=== PATIENT | female | born 1935 | race Caucasian/White ===

== ENCOUNTER 2020-06-14 16:05 | Inpatient (IN) ==
--- NOTE | 2020-06-14 17:05 | Emergency Department Note ---
Impression & Plan Acute pancreatitis, HTN (hypertension), Myalgia, Acute hyponatremia ED Provider Note NAME: SCOTT ONEAL AGE: 85 SEX: F : 1935 ARRIVES VIA: Walk-In INFORMANT: Patient, ED PROVIDER(S): Marvin Evangelista DO CHIEF COMPLAINT: Low sodium HPI: Patient is an 85-year-old female who presents the ER referred in by PCP for low sodium. She had blood work over a week ago was found to be hyponatremic. Her PCP called her today told her to go the ER because of this blood work. She presented there as she was having diffuse myalgias and arthralgias which have been present for the past 4 weeks. Admits to increased urinary frequency. Denies any headache, change in vision chest pain shortness of breath nausea vomiting or diarrhea. No other exacerbating or remitting factors. ROS: See above HPI for pertinent positives & negatives. A total of 10 systems reviewed and were otherwise negative. PAST MEDICAL HISTORY:See Below PAST SURGICAL HISTORY:See Below FAMILY HISTORY:See Below SOCIAL HISTORY:See Below HOME MEDICATIONS:See Below ALLERGIES:See Below VITALS:See Below PHYSICAL EXAMINATION: GENERAL: Sitting up in bed, alert, well appearing, well nourished, no distress, non-toxic EYE EXAM: normal conjunctiva. PERRL and EOM's grossly intact. OROPHARYNX: no exudate, no erythema, lips, buccal mucosa, and tongue normal and mucous membranes are moist NECK: supple, no nuchal rigidity, no adenopathy, non-tender LUNGS: Clear to auscultation. Normal chest wall mechanics HEART: no murmurs, S1 normal and S2 normal ABDOMEN: abdomen soft, non-tender, normo-active bowel sounds, no masses, no rebound or guarding. BACK: Back is symmetrical on inspection and there is no deformity, no midline tenderness, no CVA tenderness. SKIN: no rashes and no bruising UPPER EXTREMITIES: upper extremities are grossly normal. LOWER EXTREMITIES: No pitting edema. NEURO EXAM: Normal sensorium, cranial nerves II-XII grossly intact, normal speech, no gross weakness of arms, no gross weakness of legs. MEDICAL DECISION MAKING: Patient is an 85-year-old female referred in by her PCP for hyponatremia. IV was established blood work was obtained. She notes that she has not been eating or drinking much. She does have diffuse myalgias and arthralgias associated with weakness. Labs show mild leukocytosis of 11,000. No significant anemia. BMP with mild hyponatremia 129 and slightly low chloride at 95. Do favor that likely secondary to dehydration. She has not been eating or drinking much. T bili and LFTs were unremarkable. Lipase was elevated at nearly 800. UA was clean. CT abdomen pelvis shows likely pancreatitis. She was given IV fluids and IV morphine. She was updated at bedside. Blood pressures were significantly elevated to 220. Favor likely secondary to the pain and she is due for her medications coming up which included hydralazine and carvedilol. She denies any chest pain or shortness of breath. EKG unremarkable. She was given these medications orally as well as IV morphine. She was updated at bedside. Pressures trended down. Discussed with the hospitalist for further evaluation. Triage Nursing notes reviewed. Prior medical records reviewed Vital Signs: reviewed and remarkable for HTN Differential diagnosis: Infection, dehydration, metabolic abnormality, hypo/hyperglycemia, electrolyte disturbance, anemia, hypoxia, cardiac sources, intracerebral event, toxicologic, neurologic, as well as other pathologies. ER treatment provided: See below Diagnostics interpreted by me: ECG: Sinus rhythm rate of 56 Normal axis Poor baseline in the inferior leads Normal QTC T WI in V1 and V2 Cardiac Monitoring: An order was placed for continuous cardiac monitoring. The monitor shows a rate of 60 with sinus rhythm. Laboratory studies: As stated above and show below. Imaging studies: CT abdomen pelvis shows pancreatitis Consultation(s): Discussed with Dr. Patricio Chau for further evaluation ED COURSE: Procedures: none Critical Care: None Past Med/Surg History Medical History (Updated 06/14/20 @ 19:49 by Marvin Evangelista DO) Anxiety Hypertension Lumbar spinal stenosis Surgical History History of skin surgery 1987 Family History Mother Hypertension Brother Lung cancer Sister Ovarian cancer Denies family history of Prostate cancer Myocardial infarction Breast cancer Colorectal cancer Social History Smoking Status: Never smoker Second Hand Exposure: No; Hx Alcohol Use: Yes Hx Substance Use: No Visual Impairment: No Limitations Hearing Ability: Normal marital status: Current Living Situation: Spouse current occupational status: other current occupation: Homemaker Feels Safe at Home: Yes Dental Care, Regularly: No Physical Activity Frequency: Daily Seatbelt Use: always Sunscreen Use: Yes Allergies Allergies Allergy/AdvReac Type Severity Reaction Status Date / Time No Known Drug Allergies Allergy Unknown Verified 06/14/20 19:42 Home Meds Home Medications Medication Instructions Recorded Confirmed aspirin 81 mg tablet,delayed 81 mg PO QAM 01/06/20 06/14/20 release diltiazem HCl 240 mg PO QAM 05/05/20 06/14/20 acetaminophen [Tylenol] 650 mg PO QID PRN 05/20/20 06/14/20 [id number] acid 1 tab PO QAM 05/20/20 06/14/20 [Centrum] Previous Rx's Medication Instructions Recorded carvedilol 25 mg tablet 25 mg PO BID #180 tab 05/13/20 lorazepam 0.5 mg tablet 0.5 mg PO DAILY PRN #30 tab 05/13/20 olmesartan 40 mg tablet 40 mg PO HS #90 tab 05/13/20 amlodipine 2.5 mg tablet 2.5 mg PO QAM #90 tab 06/07/20 escitalopram oxalate 20 mg tablet 20 mg PO QAM #90 tab 06/07/20 hydralazine 25 mg tablet 75 mg PO TID #270 tab 06/07/20 Results & Data (ED) Vital Signs Vital Signs - 24 hr 06/14/20 16:10 06/14/20 17:05 06/14/20 17:13 Temperature 36.8 C Temperature Source Oral Pulse Rate 62 Pulse Rate [Apical] 60 Pulse Rhythm [Apical] Regular Pulse Strength [Apical] Normal Respiratory Rate 20 20 Respiratory Effort / Characteristics Non-Labored Respiratory Depth Normal Normal Blood Pressure 213/75 H Blood Pressure [Left Arm] 216/84 H Blood Pressure Mean 121 Blood Pressure Mean [Left Arm] 128 Blood Pressure Position [Left Arm] Lying Pulse Oximetry 98 97 96 Oxygen Delivery Method Room Air Room Air Room Air Sepsis Recent Fever Within 48 Hours No Sepsis New/Unexplained Change in Mental Status N/A Sepsis Action Taken by Nursing No Action Required 06/14/20 19:04 06/14/20 19:25 Temperature Temperature Source Pulse Rate 61 Pulse Rate [Apical] 60 Pulse Rhythm [Apical] Pulse Strength [Apical] Respiratory Rate 18 14 Respiratory Effort / Characteristics Non-Labored Spontaneous Respiratory Depth Normal Blood Pressure 199/117 H Blood Pressure [Left Arm] 202/89 H Blood Pressure Mean 165 Blood Pressure Mean [Left Arm] 126 Blood Pressure Position [Left Arm] Pulse Oximetry 98 97 Oxygen Delivery Method Room Air Room Air Sepsis Recent Fever Within 48 Hours Sepsis New/Unexplained Change in Mental Status Sepsis Action Taken by Nursing Laboratory Data Result diagrams: 06/14/20 17:00 06/14/20 17:00 Lab Results 06/14/20 06/14/20 06/14/20 Range/Units 17:00 17:00 17:55 WBC 11.73 H (4.8-10.8) K/uL RBC 4.19 L (4.2-5.4) M/uL Hgb 12.7 (12.0-16.0) g/dL Hct 38.0 (37-47) % MCV 90.7 (80-100) fL MCH 30.3 (25-34) pg MCHC 33.4 (32-36) g/dL RDW Std Deviation 44.1 (36.4-46.3) fL RDW Coeff of Yuval 13.4 (11.5-14.5) % Plt Count 304 (130-400) K/uL MPV 9.5 (7.4-10.4) fL Immature Gran % (Auto) 0.3 % Neut % (Auto) 68.9 % Lymph % (Auto) 18.9 % Gulf % (Auto) 10.8 % Eos % (Auto) 1.1 % Baso % (Auto) 0.0 % Neut # (Auto) 8.07 H (1.4-6.5) K/uL Lymph # (Auto) 2.22 (1.2-3.4) K/uL [place] # (Auto) 1.27 H (0.11-0.59) K/uL Eos # (Auto) 0.13 (0-0.5) K/uL Baso # (Auto) 0.00 (0-0.2) K/uL Immature Gran # (Auto) 0.04 H (0.00-0.02) K/uL Sodium 129 L (136-145) mmol/L Potassium 4.2 (3.5-5.1) mmol/L Chloride 95 L (98-107) mmol/L Carbon Dioxide 28 (21-32) mmol/L Anion Gap 6.0 (3-11) BUN 25 H (7-18) mg/dl Creatinine 0.89 (0.6-1.2) mg/dl Est Cr Clr Drug Dosing 44.8 ml/min Est GFR ( Amer) 69.5 Est GFR (Non-Af Amer) 59.9 BUN/Creatinine Ratio 27.8 H (10-20) Glucose 111 H (70-99) mg/dl Calcium 9.5 (8.5-10.1) mg/dl Total Bilirubin 0.4 (0.2-1) mg/dl AST 15 (15-37) U/L ALT 23 (12-78) U/L Alkaline Phosphatase 80 (45-117) U/L Total Protein 7.3 (6.4-8.2) gm/dl Albumin 3.3 L (3.4-5.0) gm/dl Globulin 4.0 (2.5-4.0) gm/dl Albumin/Globulin Ratio 0.8 L (0.9-2) Lipase 763 H (73-393) U/L Urine Color Yellow Urine Appearance Cloudy A (Clear) Urine pH >= 9.0 H (4.5-7.5) Ur Specific [place] 1.010 (1.000-1.030) Urine Protein Negative (Negative) Urine Glucose (UA) Negative (Negative) Urine Ketones Negative (Negative) Urine Blood Negative (Negative) Urine Nitrite Negative (Negative) Urine Bilirubin Negative (Negative) Urine Urobilinogen Negative (Negative) Ur Leukocyte Esterase Negative (Negative) Urine WBC (Auto) 1-5 (0-5) /hpf Urine RBC (Auto) 0-4 (0-4) /hpf U Hyaline Cast (Auto) 1-5 (0-5) /lpf U Epithel Cells (Auto) 5-10 H (0-5) /lpf Urine Bacteria (Auto) Negative (Negative) Administered Medications Discontinued Medications Carvedilol (Carvedilol 25 Mg Tab) 25 mg PO NOW ONE Stop: 06/14/20 18:49 Last Admin: 06/14/20 19:03 Dose: Not Given Documented [place]: [id number] Carvedilol (Carvedilol 12.5 Mg Tab) Confirm Administered Dose 25 mg .ROUTE .STK- MED ONE Stop: 06/14/20 19:00 Last Admin: 06/14/20 19:03 Dose: 25 mg Documented by: [id number] Hydralazine HCl (Hydralazine Hcl 25 Mg Tab) 25 mg PO NOW STA Stop: 06/14/20 18:49 Last Admin: 06/14/20 19:02 Dose: 25 mg Documented by: [id number] Ioversol (Ioversol 100ml) 94 ml IV ONCE ONE Stop: 06/14/20 18:17 Last Admin: 06/14/20 18:16 Dose: 94 ml Documented by: [id number] Discharge Plan Visit Data Chief Complaint: Abnormal Labs/Diagnostic Testing Stated Complaint: HYPONATREMIA, JOINT PAIN ED Provider: Marvin Evangelista Discharge Problem: Acute pancreatitis, HTN (hypertension), Myalgia, Acute hyponatremia Forms Stand Alone Forms: [facility] [employer] Prescriptions Prescriptions: No Action lorazepam 0.5 mg tablet 0.5 mg PO DAILY PRN (Reason: Anxiety) Qty: 30 RF: 0 carvedilol 25 mg tablet 25 mg PO BID Qty: 180 RF: 1 olmesartan 40 mg tablet 40 mg PO HS Qty: 90 RF: 1 hydralazine 25 mg tablet 75 mg PO TID Qty: 270 RF: 5 amlodipine 2.5 mg tablet 2.5 mg PO QAM Qty: 90 RF: 1 Hold Instructions: Home Medication placed on hold at Doctor's office escitalopram oxalate 20 mg tablet 20 mg PO QAM Qty: 90 RF: 1 aspirin 81 mg tablet,delayed release (DR/EC) 81 mg PO QAM RF: 0 diltiazem HCl 240 mg tablet extended release 24 hr 240 mg PO QAM RF: 0 Centrum 18-400 mg-mcg Tablet 1 tab PO QAM RF: 0 acetaminophen [Tylenol] 325 mg Tablet 650 mg PO QID PRN (Reason: Pain) RF: 0 Discharge Problem: Acute pancreatitis Qualifiers: Pancreatitis type: other Acute pancreatitis complication: unspecified Qualified Code(s): K85.80 - Other acute pancreatitis without necrosis or infection HTN (hypertension) Qualifiers: Hypertension type: unspecified Qualified Code(s): I10 - Essential (primary) hypertension
[2020-06-14 17:14] LABS: Eosinophils # (auto) 0.13 K/uL (0-0.5); Eosinophils % (auto) 1.1 %; Hemoglobin 12.7 g/dL (12.0-16.0); Immature Granulocytes # (auto) 0.04 K/uL (0.00-0.02); Immature Granulocytes % (auto) 0.3 %; Lymphocytes # (auto) 2.22 K/uL (1.2-3.4); Lymphocytes % (auto) 18.9 %; Mean Corpuscular Hemoglobin 30.3 pg (25-34); Mean Corpuscular Hgb Conc 33.4 g/dL (32-36); Mean Corpuscular Volume 90.7 fL (80-100); Mean Platelet Volume 9.5 fL (7.4-10.4); Monocytes # (auto) 1.27 K/uL (0.11-0.59); Monocytes % (auto) 10.8 %; Neutrophils # (auto) 8.07 K/uL (1.4-6.5); Neutrophils % (auto) 68.9 %; Platelet Count 304 K/uL (130-400); RDW Coefficient of Variation 13.4 % (11.5-14.5); RDW Standard Deviation 44.1 fL (36.4-46.3); Red Blood Count 4.19 M/uL (4.2-5.4); White Blood Count 11.73 K/uL (4.8-10.8)
[2020-06-14 17:31] LABS: Albumin Level 3.3 gm/dl (3.4-5.0); BUN Creatinine Ratio 27.8 (10-20); Calcium 9.5 mg/dl (8.5-10.1); Creatinine Clr Calc Pharmacy 44.8 ml/min; Est GFR (African American) 69.5; Est GFR (Non-African American) 59.9; Potassium 4.2 mmol/L (3.5-5.1)
[2020-06-14 17:34] LABS: Albumin Globulin Ratio 0.8 (0.9-2); Bilirubin,Total 0.4 mg/dl (0.2-1); Total Protein 7.3 gm/dl (6.4-8.2)
[2020-06-14 18:05] LABS: Appearance Urine Cloudy (Clear); Bacteria Urine Automated Negative (Negative); Bilirubin Urine Negative (Negative); Blood Urine Negative (Negative); Color Urine Yellow; Glucose Urine UA Negative (Negative); Ketones Urine Negative (Negative); Leukocyte Esterase Urine Negative (Negative); Nitrite Urine Negative (Negative); Protein Urine Negative (Negative); RBC Urine Automated 0-4 /hpf (0-4); Urobilinogen Urine Negative (Negative); pH Urine >= 9.0 (4.5-7.5)
[2020-06-14] MEDS ORDERED: IOVERSOL 100ml IV ONE (18:16)
--- NOTE | 2020-06-14 18:33 | CT Scan Report ---
CT SCAN OF THE ABDOMEN AND PELVIS WITH IV CONTRAST CLINICAL HISTORY: Epigastric abdominal pain. COMPARISON STUDY: Abdominal CT dated 05/20/2020. TECHNIQUE: Following the IV administration of 94 cc of Optiray 320, CT scan of the abdomen and pelvi s is performed from the lung bases to the proximal femora. Images are reviewed in the axial, sagittal , and coronal planes. IV contrast was administered without complication. A dose lowering technique wa s utilized adhering to the principles of ALARA. CT DOSE: 296.20 mGy.cm FINDINGS: Lung bases: The heart is top normal in size and without pericardial effusion. There are trace pleural effusions and dependent atelectasis. The lung bases are otherwise clear. There is a small hiatal her med. Liver: The contrast-enhanced liver is normal in size, contour, and attenuation. There is no intrahepa tic biliary ductal dilatation. The hepatic veins and portal veins are patent. A 1.3 cm low-attenuatio n lesion in the right hepatic lobe seen on image #110 demonstrates foci of peripheral nodular enhance ment and although incompletely characterized likely represents a hemangioma. Gallbladder: Unremarkable. Spleen: Normal in size and attenuation. Pancreas: The pancreas is atrophic. There is mild peripancreatic infiltration and trace fluid. The ap pearance suggests mild acute pancreatitis. The gland enhances homogeneously. The duct is normal in ca liber. A 12 mm cystic focus is identified either within or adjacent the inferior aspect of the pancre atic head as seen on image #138. The splenic vein is patent. Adrenal glands: Unremarkable. Kidneys: The contrast enhanced kidneys demonstrate cortical atrophy and are without hydronephrosis. T he kidneys enhance and excrete symmetrically. Abdominal vasculature: The abdominal aorta is normal in course and caliber noting advanced atheroscle rotic calcification. Bowel: There is no bowel obstruction. Moderate fecal retention is seen throughout the colon. The appe ndix is normal as imaged. Peritoneum: There is no intraperitoneal free air or abdominal ascites. Lymphadenopathy: None. Pelvic viscera: The bladder wall appears mildly thickened and there is pericystic inflammation. Uteru s and adnexa are normal as visualized. Trace free fluid is seen in the cul-de-sac. Skeletal structures: The skeletal structures are osteopenic. There is moderate lumbosacral spondylosi s. A hemangioma is noted in the body of T12. No lytic or blastic lesions are seen. IMPRESSION: 1. There is mild peripancreatic stranding and trace fluid. The appearance is typical for mild acute p ancreatitis. 2. The gland enhances homogeneously. The splenic vein is patent. 3. There is a 12 mm ovoid cystic focus identified either within or adjacent to the inferior aspect of the pancreatic head. This was not clearly seen on 05/20/2020, and differential considerations include a tiny loculation of peripancreatic fluid, a small developing pseudocyst, or less likely a sidebranch IPMN. 4. Findings suggest cystitis. Correlation with clinical findings and urinalysis will be required. 5. Trace pleural effusions. 6. Moderate constipation. 7. Trace nonspecific free fluid is seen in the cul-de-sac. 8. Additional findings as above. ACT 112: Negative or not required by law. Electronically signed by: Rudolph Diaz M.D. 06/14/2020 6:31 PM
[2020-06-14] MEDS ORDERED: carvediloL 25 MG TAB PO ONE (18:48)
[2020-06-14] MEDS ORDERED: carvediloL 12.5 MG TAB ONE (18:59)
[2020-06-14] MEDS ORDERED: ONDANSETRON INJ 2 MG/ML 2 ML VIAL IV STA (19:44)
[2020-06-14] MEDS ORDERED: MoRPHine SULFATE 4 MG/ML 1 ML CARP\\VIAL IV STA (19:44)
--- NOTE | 2020-06-14 20:16 | History & Physical Report ---
Date of Service June 14, 2020 Assessment & Plan (1) Acute Lyme disease: Lyme IgM and IgG positive with add-on labs this evening. Doxycycline 100 mg IV every 12 hours, and ceftriaxone 1 g IV every 24 hours Present on Admission?: Yes (2) Acute pancreatitis: mild acute pancreatitis/possible pancreatic pseudocyst versus cyst- Lipase 763, will follow serially CT suggest mild acute pancreatitis and possible pancreatic head cyst versus pseudocyst. We will consider MRCP as follow-up. Patient has no symptoms at this time Present on Admission?: Yes (3) HTN (hypertension): Continue diltiazem CD 240 mg every morning, and carvedilol to decrease to 12.5 mg p.o. twice daily, while holding evening dose this evening due to bradycardia. Hold amlodipine, as patient is already on a calcium channel shashank Diltiazem CD. Will likely need to increase hydralazine from 75 mg p.o. 3 times daily to 4 times daily. Check renin and aldosterone levels. Present on Admission?: Yes (4) Acute hyponatremia: Sodium 129 upon admission. Check a serum osmolality. Fluid restrict for now. Present on Admission?: Yes (5) Anxiety: Continue Lexapro 20 mg every morning and lorazepam as needed Present on Admission?: Yes (6) Myalgia: Patient is outdoors not uncommonly for 30-minute walks. Added a Lyme antibody test, which is now positive for both Lyme IgG and IgM antibodies, with Western blot confirmation pending. Present on Admission?: Yes (7) Cystitis: Follow urinalysis, and urine culture and sensitivity. Place on ceftriaxone 1 g IV daily Present on Admission?: Yes History of Present Illness Chief Complaint: The patient was referred to the emergency department by her PCP due to low sodium on laboratories performed last week. Primary Care Provider: Dawna Silverman DO The patient is a 85-year-old female with a past medical history including hypertension, lumbar spinal stenosis, anxiety and hyponatremia. She was referred by her PCP to the ED due to low sodium on laboratories performed last week. The patient day today complains primarily of generalized myalgias and arthralgias, concerns regarding control of her blood pressure while being on multiple medications, and increased urinary frequency. Allergies Allergy/AdvReac Type Severity Reaction Status Date / Time No Known Drug Allergies Allergy Unknown Verified 06/14/20 19:42 Home Medications Home Medications Medication Instructions Recorded Confirmed Type aspirin 81 mg tablet,delayed 81 mg PO QAM 01/06/20 06/14/20 History release diltiazem HCl 240 mg PO QAM 05/05/20 06/14/20 History carvedilol 25 mg tablet 25 mg PO BID #180 tab 05/13/20 06/14/20 Rx lorazepam 0.5 mg tablet 0.5 mg PO DAILY PRN #30 tab 05/13/20 06/14/20 Rx olmesartan 40 mg tablet 40 mg PO HS #90 tab 05/13/20 06/14/20 Rx acetaminophen [Tylenol] 650 mg PO QID PRN 05/20/20 06/14/20 History qomxuwaokbac-vplv-uzqpb acid 1 tab PO QAM 05/20/20 06/14/20 History [Centrum] amlodipine 2.5 mg tablet 2.5 mg PO QAM #90 tab 06/07/20 06/14/20 Rx escitalopram oxalate 20 mg tablet 20 mg PO QAM #90 tab 06/07/20 06/14/20 Rx hydralazine 25 mg tablet 75 mg PO TID #270 tab 06/07/20 06/14/20 Rx Past Med/Surg History Medical History (Updated 06/15/20 @ 01:02 by Patricio Chau MD) Anxiety Hypertension Lumbar spinal stenosis Surgical History History of skin surgery 1987 Family History Mother Hypertension Brother Lung cancer Sister Ovarian cancer Denies family history of Prostate cancer Myocardial infarction Breast cancer Colorectal cancer Social History Smoking Status: Never smoker Second Hand Exposure: No; Hx Alcohol Use: Yes Hx Substance Use: No Visual Impairment: No Limitations Hearing Ability: Normal Beliefs That Will Affect Care: Orthodox Orthodox Beliefs: Evangelical marital status: Current Living Situation: Spouse current occupational status: other current occupation: Homemaker Other Information That Helps Us Care for You: No Feels Safe at Home: Yes Safety Concerns: Feels Safe At This Time Dental Care, Regularly: No Physical Activity Frequency: Daily Seatbelt Use: always Sunscreen Use: Yes Assistive Devices: Denture - Upper and Glasses Review of Systems Review of Systems: The patient denies chest pain, palpitations, shortness of breath, dyspnea on exertion, cough, lower extremity swelling, sore throat, fevers, chills, sweats, weight change, fatigue, nausea, vomiting, diarrhea , constipation, abdominal pain, pelvic pain, blood in urine or stool, dysuria, lightheadedness, dizziness, headache, memory loss, loss of consciousness, rash, abnormal bruising or bleeding, imbalance, focal weakness, numbness or tingling in arms or legs, back or neck pain, or night sweats. The review of systems is otherwise negative other than for that already noted above, and at least 10 systems have been reviewed. Physical Exam Physical Exam: The patient is awake, alert and oriented 3, well developed and well nourished, normocephalic and atraumatic, lying in bed and in no acute distress. HEENT--PERRL, EOMI, mucous membranes and oropharynx normal. Neck--supple. No JVD. No bruits. Thyroid normal, trachea midline, no adenopathy. Heart--normal S1 and S2. No murmurs, rubs or gallops. Lungs--clear bilaterally, no respiratory distress, no accessory muscle use. Abdomen--normal bowel sounds and soft. Nontender. Nondistended, no hernias or masses, no organomegaly. Extremities--no cyanosis or clubbing. No edema. There are good distal pulses b/l. Dermatologic--normal skin turgor, normal color, no abnormal lymph nodes, no rash. Neurologic--cranial nerves II through XII grossly intact. Rheumatologic--normal range of motion. Psychiatric--normal affect. Results & Data Results & Data ([facility]) Vital Signs (Past 12 Hours) Vital Signs Temp Pulse Pulse Resp BP BP Pulse Ox 06/14/20 19:25 61 14 199/117 H 97 06/14/20 19:04 60 18 202/89 H 98 06/14/20 17:13 60 20 216/84 H 96 06/14/20 17:05 97 06/14/20 16:10 98.2 F 62 20 213/75 H 98 Laboratory Results Laboratory Results WBC 11.73 K/uL (4.8-10.8) H 06/14/20 17:00 RBC 4.19 M/uL (4.2-5.4) L 06/14/20 17:00 Hgb 12.7 g/dL (12.0-16.0) 06/14/20 17:00 Hct 38.0 % (37-47) 06/14/20 17:00 MCV 90.7 fL (80-100) 06/14/20 17:00 MCH 30.3 pg (25-34) 06/14/20 17:00 MCHC 33.4 g/dL (32-36) 06/14/20 17:00 RDW Std Deviation 44.1 fL (36.4-46.3) 06/14/20 17:00 RDW Coeff of Yuval 13.4 % (11.5-14.5) 06/14/20 17:00 Plt Count 304 K/uL (130-400) 06/14/20 17:00 MPV 9.5 fL (7.4-10.4) 06/14/20 17:00 Immature Gran % (Auto) 0.3 % 06/14/20 17:00 Neut % (Auto) 68.9 % 06/14/20 17:00 Lymph % (Auto) 18.9 % 06/14/20 17:00 [place] % (Auto) 10.8 % 06/14/20 17:00 Eos % (Auto) 1.1 % 06/14/20 17:00 Baso % (Auto) 0.0 % 06/14/20 17:00 Neut # (Auto) 8.07 K/uL (1.4-6.5) H 06/14/20 17:00 Lymph # (Auto) 2.22 K/uL (1.2-3.4) 06/14/20 17:00 [place] # (Auto) 1.27 K/uL (0.11-0.59) H 06/14/20 17:00 Eos # (Auto) 0.13 K/uL (0-0.5) 06/14/20 17:00 Baso # (Auto) 0.00 K/uL (0-0.2) 06/14/20 17:00 Immature Gran # (Auto) 0.04 K/uL (0.00-0.02) H 06/14/20 17:00 ESR 25 mm/hr (0-21) H 06/14/20 17:00 Sodium 129 mmol/L (136-145) L 06/14/20 17:00 Potassium 4.2 mmol/L (3.5-5.1) 06/14/20 17:00 Chloride 95 mmol/L (98-107) L 06/14/20 17:00 Carbon Dioxide 28 mmol/L (21-32) 06/14/20 17:00 Anion Gap 6.0 (3-11) 06/14/20 17:00 BUN 25 mg/dl (7-18) H 06/14/20 17:00 Creatinine 0.89 mg/dl (0.6-1.2) 06/14/20 17:00 Est Cr Clr Drug Dosing 44.8 ml/min 06/14/20 17:00 Est GFR ( Amer) 69.5 06/14/20 17:00 Est GFR (Non-Af Amer) 59.9 06/14/20 17:00 BUN/Creatinine Ratio 27.8 (10-20) H 06/14/20 17:00 Glucose 111 mg/dl (70-99) H 06/14/20 17:00 Osmolality 278 mOsm/kg (280-300) L 06/14/20 17:00 Calcium 9.5 mg/dl (8.5-10.1) 06/14/20 17:00 Total Bilirubin 0.4 mg/dl (0.2-1) 06/14/20 17:00 AST 15 U/L (15-37) 06/14/20 17:00 ALT 23 U/L (12-78) 06/14/20 17:00 Alkaline Phosphatase 80 U/L (45-117) 06/14/20 17:00 Total Protein 7.3 gm/dl (6.4-8.2) 06/14/20 17:00 Albumin 3.3 gm/dl (3.4-5.0) L 06/14/20 17:00 Globulin 4.0 gm/dl (2.5-4.0) 06/14/20 17:00 Albumin/Globulin Ratio 0.8 (0.9-2) L 06/14/20 17:00 Lipase 763 U/L (73-393) H 06/14/20 17:00 Urine Color Yellow 06/14/20 17:55 Urine Appearance Cloudy (Clear) A 06/14/20 17:55 Urine pH >= 9.0 (4.5-7.5) H 06/14/20 17:55 Ur Specific [place] 1.010 (1.000-1.030) 06/14/20 17:55 Urine Protein Negative (Negative) 06/14/20 17:55 Urine Glucose (UA) Negative (Negative) 06/14/20 17:55 Urine Ketones Negative (Negative) 06/14/20 17:55 Urine Blood Negative (Negative) 06/14/20 17:55 Urine Nitrite Negative (Negative) 06/14/20 17:55 Urine Bilirubin Negative (Negative) 06/14/20 17:55 Urine Urobilinogen Negative (Negative) 06/14/20 17:55 Ur Leukocyte Esterase Negative (Negative) 06/14/20 17:55 Urine WBC (Auto) 1-5 /hpf (0-5) 06/14/20 17:55 Urine RBC (Auto) 0-4 /hpf (0-4) 06/14/20 17:55 U Hyaline Cast (Auto) 1-5 /lpf (0-5) 06/14/20 17:55 U Epithel Cells (Auto) 5-10 /lpf (0-5) H 06/14/20 17:55 Urine Bacteria (Auto) Negative (Negative) 06/14/20 17:55 Lyme Disease IgG Ab Positive (Negative) A 06/14/20 17:00 Lyme Disease IgM Ab Positive (Negative) A 06/14/20 17:00 Diagnostic Findings [place], [place] [phone] CT Scan Report Patient: SCOTT ONEALAdmit Date: 06/14/20 MR#: [id number] Acct ID:[id number]: [facility] [place] [address] Age: 85Location: ED Sex: FRoom/Bed: Att Phy:Diagnosis: HYPONATREMIA, JOINT PAIN Cora Phy: Dawna Silverman, DOService Date: 06/14/20 Fam Phy:Interpreting Phy: Rudolph Diaz MD Admit Phy: Ordering Phy: Marvin Evangelista, DO cc: ~ CT SCAN OF THE ABDOMEN AND PELVIS WITH IV CONTRAST CLINICAL HISTORY: Epigastric abdominal pain. COMPARISON STUDY: Abdominal CT dated 05/20/2020. TECHNIQUE: Following the IV administration of 94 cc of Optiray 320, CT scan of the abdomen and pelvis is performed from the lung bases to the proximal femora. Images are reviewed in the axial, sagittal, and coronal planes. IV contrast was administered without complication. A dose lowering technique was utilized adhering to the principles of ALARA. CT DOSE: 296.20 mGy.cm FINDINGS: Lung bases: The heart is top normal in size and without pericardial effusion. There are trace pleural effusions and dependent atelectasis. The lung bases are otherwise clear. There is a small hiatal hernia. Liver: The contrast-enhanced liver is normal in size, contour, and attenuation. There is no intrahepatic biliary ductal dilatation. The hepatic veins and portal veins are patent. A 1.3 cm low-attenuation lesion in the right hepatic lobe seen on image #110 demonstrates foci of peripheral nodular enhancement and although incompletely characterized likely represents a hemangioma. Gallbladder: Unremarkable. Spleen: Normal in size and attenuation. Pancreas: The pancreas is atrophic. There is mild peripancreatic infiltration and trace fluid. The appearance suggests mild acute pancreatitis. The gland enhances homogeneously. The duct is normal in caliber. A 12 mm cystic focus is identified either within or adjacent the inferior aspect of the pancreatic head as seen on image #138. The splenic vein is patent. Adrenal glands: Unremarkable. Kidneys: The contrast enhanced kidneys demonstrate cortical atrophy and are without hydronephrosis. The kidneys enhance and excrete symmetrically. Abdominal vasculature: The abdominal aorta is normal in course and caliber noting advanced atherosclerotic calcification. Bowel: There is no bowel obstruction. Moderate fecal retention is seen throughout the colon. The appendix is normal as imaged. Peritoneum: There is no intraperitoneal free air or abdominal ascites. Lymphadenopathy: None. Pelvic viscera: The bladder wall appears mildly thickened and there is pericystic inflammation. Uterus and adnexa are normal as visualized. Trace free fluid is seen in the cul-de-sac. Skeletal structures: The skeletal structures are osteopenic. There is moderate lumbosacral spondylosis. A hemangioma is noted in the body of T12. No lytic or blastic lesions are seen. IMPRESSION: 1. There is mild peripancreatic stranding and trace fluid. The appearance is typical for mild acute pancreatitis. 2. The gland enhances homogeneously. The splenic vein is patent. 3. There is a 12 mm ovoid cystic focus identified either within or adjacent to the inferior aspect of the pancreatic head. This was not clearly seen on 05/20/2020, and differential considerations include a tiny loculation of peripancreatic fluid, a small developing pseudocyst, or less likely a sidebranch IPMN. 4. Findings suggest cystitis. Correlation with clinical findings and urinalysis will be required. 5. Trace pleural effusions. 6. Moderate constipation. 7. Trace nonspecific free fluid is seen in the cul-de-sac. 8. Additional findings as above. ACT 112: Negative or not required by law. Electronically signed by: Rudolph Diaz M.D. 06/14/2020 6:31 PM Dictated: 06/14/201819 Transcribed: 06/14/201819 Code Status & VTE Plan Code Status full code VTE Prophylaxis Plan VTE Prophylaxis will be ordered: Yes PG Care Time/CCT Total # of Minutes Spent Total Time Spent with Patient: Total time spent is greater than 50% in coordination of care (as documented) at patient's floor/unit and/or counseling patient: Coding Level of Care Code 95371 Initial Inpt Care Lvl 3 Diagnoses Acute Lyme disease A69.20 Acute pancreatitis K85.80 Acute pancreatitis complication: unspecified Pancreatitis type: other HTN (hypertension) I10 Hypertension type: unspecified Acute hyponatremia E87.1 Anxiety F41.9 Myalgia M79.10 Cystitis N30.90 (1) HTN (hypertension) Hypertension type: unspecified Qualified Code(s): I10 - Essential (primary) hypertension (2) Acute pancreatitis Acute pancreatitis complication: unspecified Pancreatitis type: other Qualified Code(s): K85.80 - Other acute pancreatitis without necrosis or infe ction
[2020-06-14] MEDS ORDERED: ONDANSETRON INJ 2 MG/ML 2 ML VIAL IV PRN (22:21)
[2020-06-14] MEDS ORDERED: LORazepam 0.5 MG TAB PO PRN (22:21)
[2020-06-14] MEDS ORDERED: ALUMINUM/MAGNESIUM SUSP 30 ML UDC PO PRN (22:21)
[2020-06-14] MEDS ORDERED: MAGNESIUM HYDROXIDE SUSP 30 ML UDC PO PRN (22:21)
[2020-06-14] MEDS ORDERED: ACETAMINOPHEN 325 MG TAB PO PRN ×2 (22:21)
[2020-06-14] MEDS ORDERED: carvediloL 25 MG TAB PO SCH (22:21)
[2020-06-14] MEDS ORDERED: cefTRIAXone SODIUM 1,000 MG in DEXTROSE 5% 50 ML IV SCH (22:30)
[2020-06-14 23:16] LABS: Lyme Ab IgG w/WB Rflx Positive (Negative); Lyme Ab IgM w/WB Rflx Positive (Negative)
[2020-06-14] MEDS: HEPARIN SOD 5,000 UNIT/0.5 ML VIAL SQ SCH (23:32)
[2020-06-14] MEDS: DOXYCYCLINE HYCLATE 100 MG in DEXTROSE 5% 100 ML IV SCH (23:32)
[2020-06-14] MEDS: OLMESARTAN MEDOXOMIL 40 MG TAB PO SCH (23:33)
[2020-06-15] MEDS ORDERED: MELATONIN 3 MG TAB PO PRN (01:26)
[2020-06-15] MEDS ORDERED: MoRPHine SULFATE 2 MG/ML CARP IV STA (03:12)
[2020-06-15] MEDS: HydrALAZINE HCL 20 MG/ML VIAL IV PRN (04:36)
[2020-06-15] MEDS ORDERED: MoRPHine SULFATE 4 MG/ML 1 ML CARP\\VIAL IV STA (04:37)
[2020-06-15] MEDS: ASPIRIN 81 MG ECTAB PO SCH (08:22)
[2020-06-15] MEDS: carvediloL 12.5 MG TAB PO SCH ×2 (08:22→21:35)
[2020-06-15] MEDS: HEPARIN SOD 5,000 UNIT/0.5 ML VIAL SQ SCH ×2 (08:23→21:32)
[2020-06-15] MEDS: CEROVITE ADV FORMULA TAB PO SCH (08:23)
[2020-06-15] MEDS: ESCITALOPRAM OXALATE 20 MG TAB PO SCH (08:23)
[2020-06-15] MEDS ORDERED: AMLODIPINE BESYLATE 5 MG TAB PO SCH (09:00)
[2020-06-15] MEDS: DOXYCYCLINE HYCLATE 100 MG in DEXTROSE 5% 100 ML IV SCH ×2 (11:07→22:30)
[2020-06-15 11:56] LABS: Urine Potassium 64.4 mmol/L
--- NOTE | 2020-06-15 13:19 | Hospitalist Progress Note ---
Date of Service June 15, 2020 Assessment & Plan (1) Acute Lyme disease: Ximena Proctor is a 85y/o F w/ PMH significant for hypertension, anxiety; who presented for concerns of recent abnormal labs in the setting of myalgias arthralgias. Presented to the ED with sodium to 126. Hyponatremia: -Uncertain etiology in the setting with functional including SIADH, glucocorticoid deficiency, hypothyroidism, malnutrition, polydipsia, medication side effect -In the setting concerning for SIADH given serum osmolality compared to urine osmolality, and urine electrolytes -Sodium 126, with subsequent up from -Serum osmolality on admission 278, this morning 270 -Urine osmolality 524, urine electrolytes unimpressive -TSH 0.231 -Cortisol in a.m. -Continue fluid restriction to a total of 1200mL daily -BMP in a.m. Acute Lyme disease: -Lyme IgM and IgG titers positive on admission -Continue doxycycline 100mg twice daily total course of 14 days Hypertension: -Continue home antihypertensive regimen; decrease of Coreg to 12.5 mg twice daily Anxiety: -Continue Lexapro Pancreatitis: -CT abdomen initially concerning for pancreatitis -Lipase on admission elevated with subsequent downtrend this a.m. -At this point limited continued concern for pancreatitis (2) Acute hyponatremia: (3) HTN (hypertension): (4) Anxiety: (5) Acute pancreatitis: Admission and Anticipated Discharge Date Admission Date: June 14, 2020 Supervising Physician Co-Signing Physician Notes I personally examined the patient and verified all schilling points of history and exam, discussed case, and agree with decision making with Dr Hooper. feeling much better. far less aches. still very anxious. 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 follow on current dosing of coreg - probably will want to decrease further if persists (but just decreased from home dose of 25 down to 12.5 today - so follow) otherwise as above Subjective Patient felt considerably improved this morning as compared to previous, admits that over the last several weeks she has had progressive muscle aches and stiffness of her joints, last night she had attributed this to stress her daily walks she where she approximately walks about 30 minutes a day. Doing outdoors. She endorses increased frequency of urination (3-4 times), but denies discomfort with urination, or urge to urinate. Review of Systems Review of Systems: All systems reviewed & are unremarkable except as noted in Subjective Physical Exam Constitutional: WD/WN, vitals as above Eyes: PERRL, conjunctivae normal, anicteric sclerae ENMT: external ear and nose normal, oropharynx normal Respiratory: normal respiratory effort, lungs clear to auscultation Cardiovascular: Rate/Rhythm: + bradycardic Heart Sounds: normal S1 and normal S2; no gallop, no murmur and no cardiac rub Vessels: normal peripheral pulses; no JVD Extremities: no edema Gastrointestinal (Abdomen): normal bowel sounds, soft, nontender, no hepatosplenomegaly Musculoskeletal: no cyanosis or clubbing, extremities motor strength 5/5 Skin: no rashes, warm and dry Psychiatric: Orientation: alert and oriented x 3 Affect: + anxious affect Results & Data Results & Data ([facility]) Vital Signs (Past 12 Hours) Vital Signs Temp Pulse Pulse Resp BP BP Pulse Ox 06/15/20 11:11 36.6 C 47 L 16 108/53 L 97 06/15/20 08:30 56 L 06/15/20 07:51 36.7 C 60 16 163/70 H 95 06/15/20 05:49 145/65 H 06/15/20 03:54 36.4 C L 86 20 216/68 H 211/83 H 95 Laboratory Results 06/15/20 06/15/20 06/15/20 Range/Units Unknown Unknown 06:04 ESR (0-21) mm/hr Osmolality (280-300) mOsm/kg Lipase (73-393) U/L Renin Activity Aldosterone TSH 0.231 L (0.300-4.500) uIu/ml Urine Color Urine Appearance (Clear) Urine pH (4.5-7.5) Ur Specific Callery (1.000-1.030) Urine Protein (Negative) Urine Glucose (UA) (Negative) Urine Ketones (Negative) Urine Blood (Negative) Urine Nitrite (Negative) Urine Bilirubin (Negative) Urine Urobilinogen (Negative) Ur Leukocyte Esterase (Negative) Urine WBC (Auto) (0-5) /hpf Urine RBC (Auto) (0-4) /hpf U Hyaline Cast (Auto) (0-5) /lpf U Epithel Cells (Auto) (0-5) /lpf Urine Bacteria (Auto) (Negative) Urine Osmolality 524 (500-800) mOsm/kg Urine Sodium 125 mmol/L Urine Potassium 64.4 mmol/L Urine Chloride 138 mmol/L MARILYN Screen Lyme Disease IgG Ab (Negative) Lyme IgG (Western Blot) Lyme IgG 18 kDa Band Lyme IgG 23 kDa Band Lyme IgG 28 kDa Band Lyme IgG 30 kDa Band Lyme IgG 39 kDa Band Lyme IgG 41 kDa Band Lyme IgG 45 kDa Band Lyme IgG 58 kDa Band Lyme IgG 66 kDa Band Lyme IgG 93 kDa Band Lyme IgM Ab (WB) Lyme Disease IgM Ab (Negative) Lyme IgM 23 kDa Band Lyme IgM 39 kDa Band Lyme IgM 41 kDa Band 06/15/20 06/15/20 06/15/20 Range/Units 05:57 05:57 05:57 ESR (0-21) mm/hr Osmolality 270 L (280-300) mOsm/kg Lipase 190 (73-393) U/L Renin Activity Pending Aldosterone Pending TSH (0.300-4.500) uIu/ml Urine Color Urine Appearance (Clear) Urine pH (4.5-7.5) Ur Specific Callery (1.000-1.030) Urine Protein (Negative) Urine Glucose (UA) (Negative) Urine Ketones (Negative) Urine Blood (Negative) Urine Nitrite (Negative) Urine Bilirubin (Negative) Urine Urobilinogen (Negative) Ur Leukocyte Esterase (Negative) Urine WBC (Auto) (0-5) /hpf Urine RBC (Auto) (0-4) /hpf U Hyaline Cast (Auto) (0-5) /lpf U Epithel Cells (Auto) (0-5) /lpf Urine Bacteria (Auto) (Negative) Urine Osmolality (500-800) mOsm/kg Urine Sodium mmol/L Urine Potassium mmol/L Urine Chloride mmol/L MARILYN Screen Pending Lyme Disease IgG Ab (Negative) Lyme IgG (Western Blot) Lyme IgG 18 kDa Band Lyme IgG 23 kDa Band Lyme IgG 28 kDa Band Lyme IgG 30 kDa Band Lyme IgG 39 kDa Band Lyme IgG 41 kDa Band Lyme IgG 45 kDa Band Lyme IgG 58 kDa Band Lyme IgG 66 kDa Band Lyme IgG 93 kDa Band Lyme IgM Ab (WB) Lyme Disease IgM Ab (Negative) Lyme IgM 23 kDa Band Lyme IgM 39 kDa Band Lyme IgM 41 kDa Band 06/14/20 06/14/20 06/14/20 Range/Units 17:55 17:00 17:00 ESR (0-21) mm/hr Osmolality (280-300) mOsm/kg Lipase (73-393) U/L Renin Activity Aldosterone TSH (0.300-4.500) uIu/ml Urine Color Yellow Urine Appearance Cloudy A (Clear) Urine pH >= 9.0 H (4.5-7.5) Ur Specific Callery 1.010 (1.000-1.030) Urine Protein Negative (Negative) Urine Glucose (UA) Negative (Negative) Urine Ketones Negative (Negative) Urine Blood Negative (Negative) Urine Nitrite Negative (Negative) Urine Bilirubin Negative (Negative) Urine Urobilinogen Negative (Negative) Ur Leukocyte Esterase Negative (Negative) Urine WBC (Auto) 1-5 (0-5) /hpf Urine RBC (Auto) 0-4 (0-4) /hpf U Hyaline Cast (Auto) 1-5 (0-5) /lpf U Epithel Cells (Auto) 5-10 H (0-5) /lpf Urine Bacteria (Auto) Negative (Negative) Urine Osmolality (500-800) mOsm/kg Urine Sodium mmol/L Urine Potassium mmol/L Urine Chloride mmol/L MARILYN Screen Lyme Disease IgG Ab Positive A (Negative) Lyme IgG (Western Blot) Pending Lyme IgG 18 kDa Band Pending Lyme IgG 23 kDa Band Pending Lyme IgG 28 kDa Band Pending Lyme IgG 30 kDa Band Pending Lyme IgG 39 kDa Band Pending Lyme IgG 41 kDa Band Pending Lyme IgG 45 kDa Band Pending Lyme IgG 58 kDa Band Pending Lyme IgG 66 kDa Band Pending Lyme IgG 93 kDa Band Pending Lyme IgM Ab (WB) Pending Lyme Disease IgM Ab Positive A (Negative) Lyme IgM 23 kDa Band Pending Lyme IgM 39 kDa Band Pending Lyme IgM 41 kDa Band Pending 06/14/20 06/14/20 Range/Units 17:00 17:00 ESR 25 H (0-21) mm/hr Osmolality 278 L (280-300) mOsm/kg Lipase (73-393) U/L Renin Activity Aldosterone TSH (0.300-4.500) uIu/ml Urine Color Urine Appearance (Clear) Urine pH (4.5-7.5) Ur Specific Callery (1.000-1.030) Urine Protein (Negative) Urine Glucose (UA) (Negative) Urine Ketones (Negative) Urine Blood (Negative) Urine Nitrite (Negative) Urine Bilirubin (Negative) Urine Urobilinogen (Negative) Ur Leukocyte Esterase (Negative) Urine WBC (Auto) (0-5) /hpf Urine RBC (Auto) (0-4) /hpf U Hyaline Cast (Auto) (0-5) /lpf U Epithel Cells (Auto) (0-5) /lpf Urine Bacteria (Auto) (Negative) Urine Osmolality (500-800) mOsm/kg Urine Sodium mmol/L Urine Potassium mmol/L Urine Chloride mmol/L MARILYN Screen Lyme Disease IgG Ab (Negative) Lyme IgG (Western Blot) Lyme IgG 18 kDa Band Lyme IgG 23 kDa Band Lyme IgG 28 kDa Band Lyme IgG 30 kDa Band Lyme IgG 39 kDa Band Lyme IgG 41 kDa Band Lyme IgG 45 kDa Band Lyme IgG 58 kDa Band Lyme IgG 66 kDa Band Lyme IgG 93 kDa Band Lyme IgM Ab (WB) Lyme Disease IgM Ab (Negative) Lyme IgM 23 kDa Band Lyme IgM 39 kDa Band Lyme IgM 41 kDa Band Medications Administered Current Inpatient Medications Acetaminophen (Acetaminophen 325 Mg Tab) 650 mg PO Q4H PRN PRN Reason: Pain or Fever Stop: 07/14/20 22:20 Last Admin: 06/15/20 01:41 Dose: 650 mg Documented by: Al Hydrox/Mg Hydrox/Simethicone (Aluminum/Magnesium Susp 30 Ml Udc) 15 ml PO Q4H PRN PRN Reason: Dyspepsia Stop: 07/14/20 22:20 Aspirin (Aspirin 81 Mg Ectab) 81 mg PO QAM [facility] Stop: 07/15/20 08:59 Last Admin: 06/15/20 08:22 Dose: 81 mg Documented by: Carvedilol (Carvedilol 12.5 Mg Tab) 12.5 mg PO BID [facility] Stop: 07/15/20 08:59 Last Admin: 06/15/20 08:22 Dose: 12.5 mg Documented by: Diltiazem HCl (Diltiazem Hcl 120 Mg Er Cap) 240 mg PO QAM [facility] Stop: 07/15/20 08:59 Last Admin: 06/15/20 08:22 Dose: 240 mg Documented by: Escitalopram Oxalate (Escitalopram Oxalate 20 Mg Tab) 20 mg PO QAM [facility] Stop: 07/15/20 08:59 Last Admin: 06/15/20 08:23 Dose: 20 mg Documented by: Heparin Sodium (Porcine) (Heparin Sod 5,000 Unit/0.5 Ml Vial) 5,000 units SQ Q12 VIMAL Stop: 07/14/20 22:20 Last Admin: 06/15/20 08:23 Dose: 5,000 units Documented by: Hydralazine HCl (Hydralazine Hcl 25 Mg Tab) 75 mg PO TID [facility] Stop: 07/14/20 22:20 Last Admin: 06/15/20 13:05 Dose: 50 mg Documented by: Hydralazine HCl (Hydralazine Hcl 20 Mg/Ml Vial) 10 mg IV Q6H PRN PRN Reason: Hypertension Stop: 07/15/20 04:03 Last Admin: 06/15/20 04:36 Dose: 10 mg Documented by: Doxycycline Hyclate 100 mg/ (Dextrose) 110 mls @ 50 mls/hr IV Q12H [facility] Stop: 06/16/20 22:59 Last Infusion: 06/15/20 13:06 Dose: Infused Documented by: Lorazepam (Lorazepam 0.5 Mg Tab) 0.5 mg PO DAILY PRN PRN Reason: Anxiety Stop: 07/14/20 22:20 Last Admin: 06/15/20 03:57 Dose: 0.5 mg Documented by: Magnesium Hydroxide (Magnesium Hydroxide Susp 30 Ml Udc) 30 ml PO Q12H PRN PRN Reason: Constipation Stop: 07/14/20 22:20 Melatonin (Melatonin 3 Mg Tab) 3 mg PO HS PRN PRN Reason: Sleep Stop: 07/15/20 01:25 Last Admin: 06/15/20 01:41 Dose: 3 mg Documented by: Multivitamins/Minerals (Cerovite Adv Formula Tab) 1 tab PO QAM [facility] Stop: 07/15/20 08:59 Last Admin: 06/15/20 08:23 Dose: 1 tab Documented by: Olmesartan (Olmesartan Medoxomil 40 Mg Tab) 40 mg PO HS [facility] Stop: 10/29/20 22:20 Last Admin: 06/14/20 23:33 Dose: 40 mg Documented by: Ondansetron HCl (Ondansetron Inj 2 Mg/Ml 2 Ml Vial) 4 mg IV Q6H PRN PRN Reason: Nausea Stop: 07/14/20 22:20 Resident Activity Tracking Resident Involvement: Resident Care Provided Care Provided: Adult Hospital Medicine (1) HTN (hypertension) Hypertension type: unspecified Qualified Code(s): I10 - Essential (primary) hypertension (2) Acute pancreatitis Acute pancreatitis complication: unspecified Pancreatitis type: other Qualified Code(s): K85.80 - Other acute pancreatitis without necrosis or infection
--- NOTE | 2020-06-15 16:05 | Electrocardiogram Report ---
Test Reason : Blood Pressure : / mmHG Vent. Rate : 056 BPM Atrial Rate : 056 BPM P-R Int : 178 ms QRS Dur : 090 ms QT Int : 424 ms P-R-T Axes : 079 001 060 degrees QTc Int : 409 ms Sinus bradycardia Possible Left atrial enlargement Borderline ECG When compared with ECG of 20-MAY-2020 09:26, No significant change was found Confirmed by Himanshu Renee ([id number]) on 06/15/2020 4:05:15 PM Referred By: Dawna Silverman Confirmed By:Himanshu Renee
[2020-06-15] MEDS ORDERED: DICLOFENAC SOD 1% GEL 100 GM TUBE EXT PRN (18:15)
--- NOTE | 2020-06-15 19:09 | Billing Data ---
Date of Service June 15, 2020 Coding Level of Care Code 42503 Prolonged Care (int'l)
--- NOTE | 2020-06-15 19:09 | Billing Data ---
Date of Service June 15, 2020 Coding Level of Care Code 35241 Subseq Hosp Care Lvl 3
[2020-06-15] MEDS: OLMESARTAN MEDOXOMIL 40 MG TAB PO SCH (21:35)
[2020-06-16] MEDS: HydrALAZINE HCL 20 MG/ML VIAL IV PRN (04:44)
[2020-06-16] MEDS ORDERED: DOXYCYCLINE HYCLATE 100 MG CAP PO SCH (07:30)
[2020-06-16] MEDS: ESCITALOPRAM OXALATE 20 MG TAB PO SCH (08:18)
[2020-06-16] MEDS: ASPIRIN 81 MG ECTAB PO SCH (08:18)
[2020-06-16] MEDS: carvediloL 12.5 MG TAB PO SCH (08:18)
[2020-06-16] MEDS: CEROVITE ADV FORMULA TAB PO SCH (08:19)
[2020-06-16] MEDS: HEPARIN SOD 5,000 UNIT/0.5 ML VIAL SQ SCH (08:19)
[2020-06-16 09:12] LABS: BUN Creatinine Ratio 20.7 (10-20); Calcium 9.4 mg/dl (8.5-10.1); Creatinine Clr Calc Pharmacy 37.6 ml/min; Est GFR (African American) 56.2; Est GFR (Non-African American) 48.5; Potassium 4.2 mmol/L (3.5-5.1)
--- NOTE | 2020-06-16 15:41 | Discharge Summary ---
Date of Service June 16, 2020 Admission HPI Per Admitting Provider The patient is a 85-year-old female with a past medical history including hypertension, lumbar spinal stenosis, anxiety and hyponatremia. She was referred by her PCP to the ED due to low sodium on laboratories performed last week. The patient day today complains primarily of generalized myalgias and arthralgias, concerns regarding control of her blood pressure while being on multiple medications, and increased urinary frequency. Principal Diagnosis Lyme disease Discharge Exam Constitutional WD/WN, vitals as above Eyes PERRL, conjunctivae normal, anicteric sclerae ENMT external ear and nose normal, oropharynx normal Respiratory normal respiratory effort, lungs clear to auscultation Cardiovascular Rate/Rhythm: + bradycardic Heart Sounds: normal S1 and normal S2; no gallop, no murmur and no cardiac rub Vessels: normal peripheral pulses; no JVD Extremities: no edema Gastrointestinal (Abdomen) normal bowel sounds, soft, nontender, no hepatosplenomegaly Musculoskeletal no cyanosis or clubbing, extremities motor strength 5/5 Skin no rashes, warm and dry Psychiatric Orientation: alert and oriented x 3 Affect: + anxious affect Discharge Data Allergies Allergy/AdvReac Type Severity Reaction Status Date / Time No Known Drug Allergies Allergy Unknown Verified 06/14/20 19:42 Consultations 06/14/20 18:49 ED Decision to Admit Stat 06/14/20 22:21 Consult Case Management - Discharge Planning Routine Ordered Studies 06/14/20 17:52 CT abd pelvis IV con only Stat Hospital Course (1) Acute Lyme disease: Ximena Proctor is a 85y/o F w/ PMH significant for hypertension, anxiety; who presented for concerns of recent abnormal labs in the setting of myalgias arthralgias. Presented to the ED with sodium to 126. Hyponatremia: -Uncertain etiology in the setting with functional including SIADH, glucocorticoid deficiency, hypothyroidism, malnutrition, polydipsia, medication side effect -In this setting concerning for SIADH as potential medication side effect (Lexapro) given serum osmolality compared to urine osmolality, and urine electrolytes -Sodium 126, with subsequent up from -Serum osmolality on admission 278, this morning 270 -Urine osmolality 524, urine electrolytes unimpressive -TSH 0.231 -AM cortisol 26.97 -Continue fluid restriction to a total of 1200mL daily (approximately 40 ounces daily) -BMP in 1 week Acute Lyme disease: -Continue doxycycline 100mg twice daily total course of 14 days Hypertension: -decrease of Coreg to 12.5 mg twice daily -Continue amlodipine 2.5 daily, diltiazem 259 mg daily, olmesartan 40 mg QHS and hydralazine 25 mg TID Anxiety: -Continue Lexapro Pancreatitis: -CT abdomen initially concerning for pancreatitis -Lipase on admission elevated with subsequent downtrend this a.m. -At this point limited continued concern for pancreatitis (2) Acute hyponatremia: (3) HTN (hypertension): (4) Anxiety: (5) Acute pancreatitis: Total Time Total Time Spent Total Time Spent (In Minutes): <30 Discharge Plan Discharge Items Patient Disposition: Home - Self-Care Reason For Visit: pancreatitis, cystitis, uncontrolled HTN Discharge Diagnosis: Lyme Disease Activity: Per Instructions section Non-emergency contact: Primary Care Provider Call non-emergency contact if: you have any medication questions, your symptoms worsen and you have a fever Follow-up/Referrals: Dawna Silverman DO [Primary Care Provider] - 06/23/20 9:20 am Diet: Regular Addtl Attending Provider Instructions: You were seen and admitted following discovery of a low electrolyte lab by you primary care provider in the setting of continued muscle aches and joint pains over the last month. As a result of this admission and the testing that was conducted it was discovered that the muscle aches and joint pain were likely secondary to Lyme Disease and you were started on the appropriate medication to treat this infection that subsequently improved the muscle aches and pains that you were experiencing. The low electrolyte that was uncovered, was monitored and is likely due to an increased hormone cause your body to hold on to the water that you are consuming causing the number to appear slightly lower than it is in reality. For this you should limit your water intake to less than 40 ounces total a day (approximately two of the [employer] black cups that you had in the hospital). You should have lab work with your primary care provider next week to continue to monitor this electrolyte level and the balance of this fluid restriction. Pending Studies at Discharge: No Stand-Alone Forms: My [employer], Smoking Cessation Medications and DC Order Prescriptions: New doxycycline hyclate 100 mg Capsule 100 mg PO BID@0700,2100 12 Days Qty: 25 RF: 0 carvedilol 12.5 mg Tablet 12.5 mg PO BID 30 Days Qty: 60 RF: 0 Continued lorazepam 0.5 mg tablet 0.5 mg PO DAILY PRN (Reason: Anxiety) Qty: 30 RF: 0 olmesartan 40 mg tablet 40 mg PO HS Qty: 90 RF: 1 hydralazine 25 mg tablet 75 mg PO TID Qty: 270 RF: 5 amlodipine 2.5 mg tablet 2.5 mg PO QAM Qty: 90 RF: 1 Hold Instructions: Home Medication placed on hold at Doctor's office escitalopram oxalate 20 mg tablet 20 mg PO QAM Qty: 90 RF: 1 aspirin 81 mg tablet,delayed release (DR/EC) 81 mg PO QAM RF: 0 diltiazem HCl 240 mg tablet extended release 24 hr 240 mg PO QAM RF: 0 Centrum 18-400 mg-mcg Tablet 1 tab PO QAM RF: 0 acetaminophen [Tylenol] 325 mg Tablet 650 mg PO QID PRN (Reason: Pain) RF: 0 Discontinued carvedilol 25 mg tablet 25 mg PO BID Qty: 180 RF: 1 Discharge Orders: Discharge Order (Routine); Ordered 06/16/20 Ordered By: Tahir Hooper Admission Data Admit Date/Time: 06/14/20 20:25 Attending Provider: Marvin Soto Admit Provider: Patricio Chau Primary Care Provider: Dawna Silverman Other Providers: Patricio Chau Other Interventions: Discharge Summary Assessment (RN) Last Done: 06/16/20 14:43 Supervising Physician Co-Signing Physician Notes I personally examined the patient and verified all schilling points of history and exam, discussed case, and agree with decision making with Dr Hooper. feeling better anxious but better and feels up to going home vitals noted nad heent nc at mmm breathing unlabored no accessory muscles good effort no focal neuro deficits myalgias / lyme - doxy, improving stable for home hyponatremia - appearing most c/w SiADH - possibly related to SSRI - BUT, at this time she's so anxious and tearful that i feel clinically managing the Na w fluid restriction is likely of less harm/more benefit than stopping her SSRI - discussed - fluid restrict to about 40oz per day, BMP early next week - over time PCP can continue to discuss risks/benefits of SSRI vs SiADH, outpt f/u elevated lipase/abnormal imaging pancreas - doubt of any clinical significance - no abdominal pain/nausea/epigastric tenderness/etc - monitor bradycardia - asymptomatic. improved on lower dose of coreg - send home on same. otherwise as above Resident Activity Tracking Resident Involvement: Resident Care Provided Care Provided: Adult Hospital Medicine
--- NOTE | 2020-06-16 19:52 | Billing Data ---
Date of Service June 16, 2020 Coding Level of Care Code D/C Day Management <30 mins
[2020-06-17 00:32] LABS: 18KDIGG Band REACTIVE; 23KDIGG Band NON-REACTIVE; 23KDIGM Band REACTIVE; 28KDIGG Band NON-REACTIVE; 30KDIGG Band NON-REACTIVE; 39KDIGG Band NON-REACTIVE; 39KDIGM Band REACTIVE; 41KDIGG Band REACTIVE; 41KDIGM Band NON-REACTIVE; 45KDIGG Band NON-REACTIVE; 58KDIGG Band NON-REACTIVE; 66KDIGG Band NON-REACTIVE; 93KDIGG Band NON-REACTIVE; Lyme Antibodies, WB IgG NEGATIVE (NEGATIVE); Lyme Antibodies, WB IgM POSITIVE (NEGATIVE)
[2020-06-19 01:27] LABS: Anti Nuclear Antibody Screen POSITIVE (NEGATIVE); Renin Activity 0.48 ng/mL/h (0.25-5.82)
[2020-06-20 12:05] LABS: ANA Pattern Nuclear, Nucleolar; ANA Pattern 2 Nuclear, Speckled; ANA Titer 2 1:40 titer
--- NOTE | 2020-06-27 14:20 | Coding Query ---
CODING QUERY To promote full compliance with coding requirements relating to patient care, provider participation is requested in all cases of card decorator uncertainty. Please assist us with the question(s) below: Coding Question(s): There is documentation of Acute Pancreatitis in the record and the Discharge Summary documents, "limited continued concern for pancreatitis" and, "elevated lipase/abnormal imaging pancreas - doubt of any clinical significance - no abdominal pain/nausea/epigastric tenderness/etc - monitor". It is not clear if the Acute Pancreatitis was still possible initially or if it was ruled-out completely. Please clarify below, in your clinical opinion, regarding Acute Pancreatitis. ( ) Possible Acute Pancreatitis (x ) Acute Pancreatitis is Ruled-Out ( ) Other: Please Specify Physician's Response(s): Thank you Jessica Avalos Principal Diagnosis: "that condition established after study, to be chiefly responsible for occasioning the admission of the patient to the hospital for care." Co-Existing Principal Diagnosis: "when two or more diagnoses equally meet the criteria for principal diagnosis as determined by the circumstances of admission, diagnostic work up, and/or therapy provided, and the Alphabetic Index, Tabular List, or another coding guideline does not provide sequencing direction, any one of the diagnoses may be sequenced first." "When the physician has documented what appears to be a current diagnosis in the body of the record, but has not included the diagnosis in the final diagnostic statement, the physician should be asked whether the diagnosis should be added." (Source Coding [facility] 2 QTR90. p3-4) SELIN
== END 2020-06-16 15:20 | disposition home or self-care (01) | DRG 868 ==
LOC: ED 16:05 → 2S 20:25 → SUATTDRO 20:25 → 2S 21:16

== ENCOUNTER 2023-01-29 08:05 | Inpatient (IN) ==
[2023-01-29] MEDS ORDERED: ACETAMINOPHEN 1,000 MG/100 ML VIAL IV STA (08:27)
[2023-01-29] MEDS ORDERED: SODIUM CHLORIDE 0.9% 1000ML 1,000 ML IV ONE (08:27)
--- NOTE | 2023-01-29 08:40 | Emergency Department Note ---
Impression & Plan Acute febrile illness, Thrombocytopenia, Transaminitis, Lymphopenia, Hyponatremia ED Provider Note NAME: SCOTT ONEAL AGE: 87 SEX: F ARRIVES VIA: Walk-In INFORMANT: Patient ED PROVIDER(S): Rome Rowe MD CHIEF COMPLAINT: Fever, UTI, weakness. PLAN: Disposition: Admit MEDICAL DECISION MAKING: The patient is a pleasant 87-year-old woman with a past medical history of hypertension who presents to the emergency department via walk-in accompanied by her daughter for evaluation of generalized weakness and ongoing fevers since Saturday patient was seen in urgent care and diagnosed with a UTI and started on Keflex. However, they report that she has not been eating or drinking well and has been feeling lightheaded and weak to the point where she cannot walk well. She denies vomiting or diarrhea. She has any cough, congestion, chest pain or shortness of breath. Denies any history of recurrent urinary infections. She reports intermittent headache fluctuating with her fever which has been up to 102 today. They report that her symptoms are reminiscent of when she had Lyme disease a couple of years ago. She is out in the garden frequently exposed to ticks but has not noticed any tick bites recently. On arrival the patient is fatigued appearing but no acute distress, with temperature of 37.5 and vital signs otherwise stable. She appears clinically dry. Abdomen is benign. EKG without overt acute ischemia. Chest x-ray negative for acute cardiopulmonary process. WBC 2.8K with lymphopenia to 0.29K. H/H approximate to prior range values. Platelets are newly low at 93K. Chemistry without metabolic acidosis. Sodium 129 in the setting of poor oral intake attempts to hydrate with only water. Lactic acid 1.1, within normal limits. AST ALT are mildly elevated 85 and 57, respectively. Total bilirubin is normal. CPK mildly above normal at 273, nonspecific. High-sensitivity troponin 17.6, marginally above upper limit of normal specific. Lipase not elevated. Procalcitonin is mildly elevated at 0.67. TSH within normal limits. UA with 1+ bacteria and epithelial cells present but in the setting of being treated with Keflex. Lyme screen was negative. COVID-19, influenza and RSV PCR's were negative. CT of the abdomen pelvis was performed and demonstrates small pleural effusions with trace abdominal ascites. Evidence of cystitis is seen. Given the patient's leukopenia/lymphopenia with thrombocytopenia and transaminitis in the setting of history of tick exposures concern for anaplasmosis was raised. Prior evaluation the patient felt some improvement but still with weakness and was noted by nursing to have low oxygen was placed on 2 L nasal cannula. Given the patient's persistent symptoms the patient and daughter at the bedside agree with plan for admission for further management. Treatment initiated with IV ceftriaxone for UTI as well as IV doxycycline for possible anaplasmosis. Case was discussed with Dr. Regalado, [facility] hospitalist, who will evaluate the patient for admission. Triage Nursing notes reviewed and agree them. Prior/outside medical records reviewed Vital Signs: reviewed Differential diagnosis: Viral syndrome, otitis, pharyngitis, pneumonia, influenza, meningitis, urinary tract infection, sepsis, bacteremia, as well as other pathologies. ER treatment provided: See below. Diagnostics interpreted by me: ECG: NSR, 70 bpm, no ectopy, no overt ST elevation or depression. Cardiac Monitoring: An order for continuous cardiac monitoring was placed and demonstrated NSR, 70 bpm, no ectopy. Laboratory studies: See below Imaging studies: See below Consultation(s): Dr. Regalado, [facility] hospitalist HPI: The patient is a pleasant 87-year-old woman with a past medical history of hypertension who presents to the emergency department via walk-in accompanied by her daughter for evaluation of generalized weakness and ongoing fevers since Saturday patient was seen in urgent care and diagnosed with a UTI and started on Keflex. However, they report that she has not been eating or drinking well and has been feeling lightheaded and weak to the point where she cannot walk well. She denies vomiting or diarrhea. She has any cough, congestion, chest pain or shortness of breath. Denies any history of recurrent urinary infections. She reports intermittent headache fluctuating with her fever which has been up to 10 2 today. They report that her symptoms are reminiscent of when she had Lyme disease a couple of years ago. She is out in the garden frequently exposed to ticks but has not noticed any tick bites recently. ROS: See above HPI for pertinent positives & negatives. A total of 10 systems reviewed and were otherwise negative. VITALS:See Below PHYSICAL EXAMINATION: GENERAL: Awake, alert, fatigued-appearing, in no distress HENT: Normocephalic, atraumatic. Oropharynx with dry-cracked mucous membranes and otherwise unremarkable. EYES: Normal conjunctiva. Sclera non-icteric. EOMI. No nystamgus. PEARRL. NECK: Supple. No nuchal rigidity. FROM. No JVD. RESPIRATORY: Clear to auscultation. CARDIAC: Regular rate, normal rhythm. Extremities warm and well perfused. Pulses equal. ABDOMEN: Soft, non-distended. No tenderness to palpation. No rebound or guarding. No masses. RECTAL: Deferred. MUSCULOSKELETAL: Chest examination reveals no tenderness. The back is symmetrical on inspection without obvious abnormality. There is no CVA tenderness to palpation. No joint edema. LOWER EXTREMITIES: Calves are equal size bilaterally and non-tender. No edema. No discoloration. NEURO: Normal sensorium. No sensory or motor deficits noted. 5/5 strength and SILT x 4 extremities. Cerebellar function intact including [id number], alte rnating palms, [id number]. SKIN: No rash or jaundice noted. Rome Rowe MD Past Med/Surg History Medical History Acute Lyme disease (05/2020) Anxiety Dyslipidemia Hypertension Lumbar spinal stenosis Surgical History History of skin surgery 1987 S/P bilateral cataract extraction (03/2022) Family History Mother Hypertension Brother Lung cancer Sister Ovarian cancer Denies family history of Prostate cancer Myocardial infarction Breast cancer Colorectal cancer Social History Smoking Status: Never smoker Second Hand Exposure: No; Do You Dip or Chew Tobacco: No; Hx Alcohol Use: No Hx Substance Use: No Preferred Language: Namibian Communication Ability: Effective Visual Impairment: Limited Hearing Ability: Normal Agricultural Researcher Required: No Beliefs That Will Affect Care: None marital status: / marital status details: lost of 62 yrs Jun 2022 Current Living Situation: Alone current occupational status: other current occupation: Homemaker How many Children do You have: 5 Feels Safe at Home: Yes Safety Concerns: Feels Safe At This Time Childhood Exposure to Second-Hand Smoke: Yes Diet: regular Diet Comment: regular caffeine: Yes during the past year weight has: remained stable Dental Care, Regularly: No Physical Activity Frequency: Daily Seatbelt Use: always Sunscreen Use: Yes Assistive Devices: Denture - Upper and Glasses Allergies Allergies Allergy/AdvReac Type Severity Reaction Status Date / Time No Known Drug Allergies Allergy Unknown Verified 01/29/23 11:30 Home Meds Home Medications Medication Instructions Recorded Confirmed aspirin 81 mg tablet,delayed 81 mg PO QAM 01/06/20 01/29/23 release acetaminophen 325 mg tablet 650 mg PO QID PRN Pain 05/20/20 01/29/23 (Tylenol) multivitamin-ferrous 1 tab PO QAM 05/20/20 01/29/23 fumarate-folic acid 18 mg-400 mcg tablet (Centrum) vitamins A,C,Z-sodx-qarmde 4,296 1 cap PO BID 07/31/22 01/29/23 mcg-226 mg-90 mg capsule (PreserVision AREDS) cephalexin 500 mg capsule 500 mg PO BID 01/29/23 01/29/23 Previous Rx's Medication Instructions Recorded escitalopram oxalate 20 mg tablet 20 mg PO QAM #90 tabs 08/20/22 olmesartan 40 mg tablet 40 mg PO HS #90 tabs 08/31/22 carvedilol 12.5 mg tablet 12.5 mg PO BID #180 tabs 10/12/22 diltiazem HCl 240 mg 240 mg PO QAM #90 tabs 10/19/22 tablet,extended release 24 hr hydralazine 25 mg tablet 75 mg PO TID #270 tabs 11/08/22 amlodipine 10 mg tablet 10 mg PO DAILY #90 tabs 11/09/22 lorazepam 0.5 mg tablet 0.5 mg PO DAILY PRN Anxiety #30 01/07/23 tabs Results & Data (ED) Vital Signs Vital Signs - 24 hr 01/29/23 08:10 01/29/23 08:40 01/29/23 09:20 Temperature 37.5 C Temperature Source Temporal Artery Scan Pulse Rate 81 68 Pulse Rate [Apical] Pulse Rate from SpO2 Sensor Pulse Rhythm [Apical] Respiratory Rate 18 Respiratory Effort / Characteristics Respiratory Depth Respiratory Pattern Blood Pressure 149/67 H Blood Pressure [Right Arm] Blood Pressure Mean 94 Blood Pressure Mean [Right Arm] Blood Pressure Position [Right Arm] Pulse Oximetry 94 90 Oxygen Delivery Method Room Air Oxygen Flow Rate Sepsis Recent Fever Within 48 Hours Yes Sepsis New/Unexplained Change in Mental Status N/A Sepsis Action Taken by Nursing No Action Required 01/29/23 11:13 01/29/23 09:16 01/29/23 09:30 Temperature Temperature Source Pulse Rate 72 Pulse Rate [Apical] 63 Pulse Rate from SpO2 Sensor 67 Pulse Rhythm [Apical] Regular Respiratory Rate 20 28 H Respiratory Effort / Characteristics Non-Labored Spontaneous Respiratory Depth Normal Respiratory Pattern Regular Blood Pressure 144/57 H Blood Pressure [Right Arm] 124/61 Blood Pressure Mean 86 Blood Pressure Mean [Right Arm] 82 Blood Pressure Position [Right Arm] Semi-fowlers Pulse Oximetry 93 90 Oxygen Delivery Method Room Air Room Air Oxygen Flow Rate Sepsis Recent Fever Within 48 Hours Sepsis New/Unexplained Change in Mental Status Sepsis Action Taken by Nursing 01/29/23 09:30 01/29/23 10:00 01/29/23 10:00 Temperature Temperature Source Pulse Rate 68 66 Pulse Rate [Apical] Pulse Rate from SpO2 Sensor 68 64 Pulse Rhythm [Apical] Respiratory Rate 21 19 Respiratory Effort / Characteristics Respiratory Depth Respiratory Pattern Blood Pressure 130/53 L Blood Pressure [Right Arm] Blood Pressure Mean 78 Blood Pressure Mean [Right Arm] Blood Pressure Position [Right Arm] Pulse Oximetry 86 L 89 L Oxygen Delivery Method Nasal Cannula Nasal Cannula Oxygen Flow Rate 2 2 Sepsis Recent Fever Within 48 Hours Sepsis New/Unexplained Change in Mental Status Sepsis Action Taken by Nursing 01/29/23 11:12 01/29/23 11:14 01/29/23 11:14 Temperature Temperature Source Pulse Rate 63 67 Pulse Rate [Apical] Pulse Rate from SpO2 Sensor 64 Pulse Rhythm [Apical] Respiratory Rate 19 19 Respiratory Effort / Characteristics Respiratory Depth Respiratory Pattern Blood Pressure 124/61 Blood Pressure [Right Arm] Blood Pressure Mean 82 Blood Pressure Mean [Right Arm] Blood Pressure Position [Right Arm] Pulse Oximetry 92 Oxygen Delivery Method Nasal Cannula Oxygen Flow Rate 2 Sepsis Recent Fever Within 48 Hours Sepsis New/Unexplained Change in Mental Status Sepsis Action Taken by Nursing 01/29/23 11:30 01/29/23 11:30 01/29/23 12:00 Temperature Temperature Source Pulse Rate 65 Pulse Rate [Apical] Pulse Rate from SpO2 Sensor 65 70 Pulse Rhythm [Apical] Respiratory Rate 20 Respiratory Effort / Characteristics Respiratory Depth Respiratory Pattern Blood Pressure 139/65 Blood Pressure [Right Arm] Blood Pressure Mean 89 Blood Pressure Mean [Right Arm] Blood Pressure Position [Right Arm] Pulse Oximetry 94 96 Oxygen Delivery Method Room Air Room Air Oxygen Flow Rate Sepsis Recent Fever Within 48 Hours Sepsis New/Unexplained Change in Mental Status Sepsis Action Taken by Nursing 01/29/23 10:30 Temperature 36.9 C Temperature Source Oral Pulse Rate Pulse Rate [Apical] Pulse Rate from SpO2 Sensor Pulse Rhythm [Apical] Respiratory Rate Respiratory Effort / Characteristics Respiratory Depth Respiratory Pattern Blood Pressure Blood Pressure [Right Arm] Blood Pressure Mean Blood Pressure Mean [Right Arm] Blood Pressure Position [Right Arm] Pulse Oximetry Oxygen Delivery Method Oxygen Flow Rate Sepsis Recent Fever Within 48 Hours Sepsis New/Unexplained Change in Mental Status Sepsis Action Taken by Nursing Laboratory Data Attestation: I reviewed the patient's lab results. 01/29/23 09:00 01/29/23 09:00 Lab Results 01/29/23 01/29/23 01/29/23 Range/Units 08:20 08:20 08:20 WBC (4.8-10.8) K/ul RBC (4.20-5.40) M/uL Hgb (12.0-16.0) g/dl Hct (37.0-47.0) % MCV (80.0-100.0) fL MCH (25.0-34.0) pg MCHC (32.0-36.0) g/dL RDW Std Deviation (36.4-46.3) fL RDW Coeff of Yuval (11.5-14.5) % Plt Count (130-400) K/uL MPV (9.4-12.4) fL Immature Gran % (Auto) % Neut % (Auto) % Lymph % (Auto) % [place] % (Auto) % Eos % (Auto) % Baso % (Auto) % Neut # (Auto) (1.40-6.50) K/uL Lymph # (Auto) (1.2-3.4) K/uL [place] # (Auto) (0.11-0.59) K/uL Eos # (Auto) (0-0.50) K/uL Baso # (Auto) (0-0.2) K/uL Immature Gran # (Auto) (0.01-0.20) K/uL RBC Agglutinates ESR (0-30) mm/hr PT (9.0-12.0) Seconds INR (0.9-1.1) Sodium (136-145) mmol/L Potassium (3.5-5.1) mmol/L Chloride (98-107) mmol/L Carbon Dioxide (21-32) mmol/L Anion Gap (3-11) BUN (6-23) mg/dl Creatinine (0.6-1.2) mg/dl Est Cr Clr Drug Dosing ml/min Est GFR ( Amer) ml/min Est GFR (Non-Af Amer) ml/min BUN/Creatinine Ratio (10-20) Glucose (70-99(Fasting)) mg/dl Osmolality (280-300) mOsm/kg Lactate (0.4-2.0) mmol/L Calcium (8.6-10.3) mg/dl Phosphorus (2.5-4.9) mg/dl Magnesium (1.7-2.4) mg/dl Total Bilirubin (0.2-1.0) mg/dl Direct Bilirubin (0-0.2) mg/dl AST (13-39) U/L ALT (7-52) U/L Alkaline Phosphatase (34-104) U/L Total Creatine Kinase (26-192) U/L Troponin I High Sens (0-14) pg/ml C-Reactive Protein (0-0.5) mg/dl Total Protein (6.0-8.3) gm/dl Albumin (3.4-5.0) gm/dl Lipase (11-82) U/L Procalcitonin (0-0.5) ng/ml TSH (0.300-4.500) uIu/ml Urine Color Yellow Urine Appearance Cloudy A (Clear) Urine pH 5.5 (4.5-7.5) Ur Specific [place] 1.024 (1.000-1.030) Urine Protein 2+ H (Negative) Urine Glucose (UA) Negative (Negative) Urine Ketones Negative (Negative) Urine Blood Negative (Negative) Urine Nitrite Negative (Negative) Urine Bilirubin Negative (Negative) Urine Urobilinogen Negative (Negative) Ur Leukocyte Esterase Negative (Negative) Urine WBC (Auto) 1-5 (0-5) /hpf Urine RBC (Auto) 0-4 (0-4) /hpf U Hyaline Cast (Auto) 0 (0-5) /lpf U Epithel Cells (Auto) >30 H (0-5) /lpf Urine Bacteria (Auto) 1+ H (Negative) Urine Yeast Not Reportable Urine Osmolality 658 (500-800) mOsm/kg Ur Random Sodium 64 mmol/L Anaplasma Smear Babesia Smear Lyme Disease IgG Ab (Negative) Lyme Disease IgM Ab (Negative) SARS-CoV-2 (PCR) (Negative) Influenza Type A (PCR) (Neg) Influenza Type B (PCR) (Neg) RSV (RT-PCR) (Neg) 01/29/23 01/29/23 01/29/23 Range/Units 09:00 09:00 09:00 WBC 2.80 L (4.8-10.8) K/ul RBC 3.81 L (4.20-5.40) M/uL Hgb 11.8 L (12.0-16.0) g/dl Hct 33.6 L (37.0-47.0) % MCV 88.2 (80.0-100.0) fL MCH 31.0 (25.0-34.0) pg MCHC 35.1 (32.0-36.0) g/dL RDW Std Deviation 39.9 (36.4-46.3) fL RDW Coeff of Yuval 12.4 (11.5-14.5) % Plt Count 93 L (130-400) K/uL MPV 11.4 (9.4-12.4) fL Immature Gran % (Auto) 0.4 % Neut % (Auto) 85.6 % Lymph % (Auto) 10.4 % [place] % (Auto) 3.2 % Eos % (Auto) 0.0 % Baso % (Auto) 0.4 % Neut # (Auto) 2.40 (1.40-6.50) K/uL Lymph # (Auto) 0.29 L (1.2-3.4) K/uL [place] # (Auto) 0.09 L (0.11-0.59) K/uL Eos # (Auto) 0.00 (0-0.50) K/uL Baso # (Auto) 0.01 (0-0.2) K/uL Immature Gran # (Auto) 0.01 (0.01-0.20) K/uL RBC Agglutinates 1+ ESR (0-30) mm/hr PT 13.2 H (9.0-12.0) Seconds INR 1.2 H (0.9-1.1) Sodium 129 L (136-145) mmol/L Potassium 3.6 (3.5-5.1) mmol/L Chloride 97 L (98-107) mmol/L Carbon Dioxide 25 (21-32) mmol/L Anion Gap 7 (3-11) BUN 20 (6-23) mg/dl Creatinine 0.90 (0.6-1.2) mg/dl Est Cr Clr Drug Dosing 42.8 ml/min Est GFR ( Amer) 67.6 ml/min Est GFR (Non-Af Amer) 58.3 ml/min BUN/Creatinine Ratio 22.2 H (10-20) Glucose 125 H (70-99(Fasting)) mg/dl Osmolality (280-300) mOsm/kg Lactate (0.4-2.0) mmol/L Calcium 8.5 L (8.6-10.3) mg/dl Phosphorus 2.8 (2.5-4.9) mg/dl Magnesium 1.9 (1.7-2.4) mg/dl Total Bilirubin 0.5 (0.2-1.0) mg/dl Direct Bilirubin 0.1 (0-0.2) mg/dl AST 85 H (13-39) U/L ALT 57 H (7-52) U/L Alkaline Phosphatase 87 (34-104) U/L Total Creatine Kinase 273 H (26-192) U/L Troponin I High Sens 17.6 H (0-14) pg/ml C-Reactive Protein 7.10 H (0-0.5) mg/dl Total Protein 6.0 (6.0-8.3) gm/dl Albumin 3.5 (3.4-5.0) gm/dl Lipase 28 (11-82) U/L Procalcitonin (0-0.5) ng/ml TSH (0.300-4.500) uIu/ml Urine Color Urine Appearance (Clear) Urine pH (4.5-7.5) Ur Specific [place] (1.000-1.030) Urine Protein (Negative) Urine Glucose (UA) (Negative) Urine Ketones (Negative) Urine Blood (Negative) Urine Nitrite (Negative) Urine Bilirubin (Negative) Urine Urobilinogen (Negative) Ur Leukocyte Esterase (Negative) Urine WBC (Auto) (0-5) /hpf Urine RBC (Auto) (0-4) /hpf U Hyaline Cast (Auto) (0-5) /lpf U Epithel Cells (Auto) (0-5) /lpf Urine Bacteria (Auto) (Negative) Urine Yeast Urine Osmolality (500-800) mOsm/kg Ur Random Sodium mmol/L Anaplasma Smear Babesia Smear Lyme Disease IgG Ab (Negative) Lyme Disease IgM Ab (Negative) SARS-CoV-2 (PCR) (Negative) Influenza Type A (PCR) (Neg) Influenza Type B (PCR) (Neg) RSV (RT-PCR) (Neg) 01/29/23 01/29/23 01/29/23 Range/Units 09:00 09:00 09:00 WBC (4.8-10.8) K/ul RBC (4.20-5.40) M/uL Hgb (12.0-16.0) g/dl Hct (37.0-47.0) % MCV (80.0-100.0) fL MCH (25.0-34.0) pg MCHC (32.0-36.0) g/dL RDW Std Deviation (36.4-46.3) fL RDW Coeff of Yuval (11.5-14.5) % Plt Count (130-400) K/uL MPV (9.4-12.4) fL Immature Gran % (Auto) % Neut % (Auto) % Lymph % (Auto) % [place] % (Auto) % Eos % (Auto) % Baso % (Auto) % Neut # (Auto) (1.40-6.50) K/uL Lymph # (Auto) (1.2-3.4) K/uL [place] # (Auto) (0.11-0.59) K/uL Eos # (Auto) (0-0.50) K/uL Baso # (Auto) (0-0.2) K/uL Immature Gran # (Auto) (0.01-0.20) K/uL RBC Agglutinates ESR (0-30) mm/hr PT (9.0-12.0) Seconds INR (0.9-1.1) Sodium (136-145) mmol/L Potassium (3.5-5.1) mmol/L Chloride (98-107) mmol/L Carbon Dioxide (21-32) mmol/L Anion Gap (3-11) BUN (6-23) mg/dl Creatinine (0.6-1.2) mg/dl Est Cr Clr Drug Dosing ml/min Est GFR ( Amer) ml/min Est GFR (Non-Af Amer) ml/min BUN/Creatinine Ratio (10-20) Glucose (70-99(Fasting)) mg/dl Osmolality (280-300) mOsm/kg Lactate 1.1 (0.4-2.0) mmol/L Calcium (8.6-10.3) mg/dl Phosphorus (2.5-4.9) mg/dl Magnesium (1.7-2.4) mg/dl Total Bilirubin (0.2-1.0) mg/dl Direct Bilirubin (0-0.2) mg/dl AST (13-39) U/L ALT (7-52) U/L Alkaline Phosphatase (34-104) U/L Total Creatine Kinase (26-192) U/L Troponin I High Sens (0-14) pg/ml C-Reactive Protein (0-0.5) mg/dl Total Protein (6.0-8.3) gm/dl Albumin (3.4-5.0) gm/dl Lipase (11-82) U/L Procalcitonin 0.67 H (0-0.5) ng/ml TSH 2.320 (0.300-4.500) uIu/ml Urine Color Urine Appearance (Clear) Urine pH (4.5-7.5) Ur Specific [place] (1.000-1.030) Urine Protein (Negative) Urine Glucose (UA) (Negative) Urine Ketones (Negative) Urine Blood (Negative) Urine Nitrite (Negative) Urine Bilirubin (Negative) Urine Urobilinogen (Negative) Ur Leukocyte Esterase (Negative) Urine WBC (Auto) (0-5) /hpf Urine RBC (Auto) (0-4) /hpf U Hyaline Cast (Auto) (0-5) /lpf U Epithel Cells (Auto) (0-5) /lpf Urine Bacteria (Auto) (Negative) Urine Yeast Urine Osmolality (500-800) mOsm/kg Ur Random Sodium mmol/L Anaplasma Smear Babesia Smear Lyme Disease IgG Ab Negative (Negative) Lyme Disease IgM Ab Negative (Negative) SARS-CoV-2 (PCR) (Negative) Influenza Type A (PCR) (Neg) Influenza Type B (PCR) (Neg) RSV (RT-PCR) (Neg) 01/29/23 01/29/23 01/29/23 Range/Units 09:00 09:00 09:01 WBC (4.8-10.8) K/ul RBC (4.20-5.40) M/uL Hgb (12.0-16.0) g/dl Hct (37.0-47.0) % MCV (80.0-100.0) fL MCH (25.0-34.0) pg MCHC (32.0-36.0) g/dL RDW Std Deviation (36.4-46.3) fL RDW Coeff of Yuval (11.5-14.5) % Plt Count (130-400) K/uL MPV (9.4-12.4) fL Immature Gran % (Auto) % Neut % (Auto) % Lymph % (Auto) % [place] % (Auto) % Eos % (Auto) % Baso % (Auto) % Neut # (Auto) (1.40-6.50) K/uL Lymph # (Auto) (1.2-3.4) K/uL [place] # (Auto) (0.11-0.59) K/uL Eos # (Auto) (0-0.50) K/uL Baso # (Auto) (0-0.2) K/uL Immature Gran # (Auto) (0.01-0.20) K/uL RBC Agglutinates ESR 16 (0-30) mm/hr PT (9.0-12.0) Seconds INR (0.9-1.1) Sodium (136-145) mmol/L Potassium (3.5-5.1) mmol/L Chloride (98-107) mmol/L Carbon Dioxide (21-32) mmol/L Anion Gap (3-11) BUN (6-23) mg/dl Creatinine (0.6-1.2) mg/dl Est Cr Clr Drug Dosing ml/min Est GFR ( Amer) ml/min Est GFR (Non-Af Amer) ml/min BUN/Creatinine Ratio (10-20) Glucose (70-99(Fasting)) mg/dl Osmolality 272 L (280-300) mOsm/kg Lactate (0.4-2.0) mmol/L Calcium (8.6-10.3) mg/dl Phosphorus (2.5-4.9) mg/dl Magnesium (1.7-2.4) mg/dl Total Bilirubin (0.2-1.0) mg/dl Direct Bilirubin (0-0.2) mg/dl AST (13-39) U/L ALT (7-52) U/L Alkaline Phosphatase (34-104) U/L Total Creatine Kinase (26-192) U/L Troponin I High Sens (0-14) pg/ml C-Reactive Protein (0-0.5) mg/dl Total Protein (6.0-8.3) gm/dl Albumin (3.4-5.0) gm/dl Lipase (11-82) U/L Procalcitonin (0-0.5) ng/ml TSH (0.300-4.500) uIu/ml Urine Color Urine Appearance (Clear) Urine pH (4.5-7.5) Ur Specific [place] (1.000-1.030) Urine Protein (Negative) Urine Glucose (UA) (Negative) Urine Ketones (Negative) Urine Blood (Negative) Urine Nitrite (Negative) Urine Bilirubin (Negative) Urine Urobilinogen (Negative) Ur Leukocyte Esterase (Negative) Urine WBC (Auto) (0-5) /hpf Urine RBC (Auto) (0-4) /hpf U Hyaline Cast (Auto) (0-5) /lpf U Epithel Cells (Auto) (0-5) /lpf Urine Bacteria (Auto) (Negative) Urine Yeast Urine Osmolality (500-800) mOsm/kg Ur Random Sodium mmol/L Anaplasma Smear Babesia Smear Lyme Disease IgG Ab (Negative) Lyme Disease IgM Ab (Negative) SARS-CoV-2 (PCR) NEGATIVE (Negative) Influenza Type A (PCR) Negative (Neg) Influenza Type B (PCR) Negative (Neg) RSV (RT-PCR) Negative (Neg) 01/29/23 Range/Units 11:20 WBC (4.8-10.8) K/ul RBC (4.20-5.40) M/uL Hgb (12.0-16.0) g/dl Hct (37.0-47.0) % MCV (80.0-100.0) fL MCH (25.0-34.0) pg MCHC (32.0-36.0) g/dL RDW Std Deviation (36.4-46.3) fL RDW Coeff of Yuval (11.5-14.5) % Plt Count (130-400) K/uL MPV (9.4-12.4) fL Immature Gran % (Auto) % Neut % (Auto) % Lymph % (Auto) % [place] % (Auto) % Eos % (Auto) % Baso % (Auto) % Neut # (Auto) (1.40-6.50) K/uL Lymph # (Auto) (1.2-3.4) K/uL [place] # (Auto) (0.11-0.59) K/uL Eos # (Auto) (0-0.50) K/uL Baso # (Auto) (0-0.2) K/uL Immature Gran # (Auto) (0.01-0.20) K/uL RBC Agglutinates ESR (0-30) mm/hr PT (9.0-12.0) Seconds INR (0.9-1.1) Sodium (136-145) mmol/L Potassium (3.5-5.1) mmol/L Chloride (98-107) mmol/L Carbon Dioxide (21-32) mmol/L Anion Gap (3-11) BUN (6-23) mg/dl Creatinine (0.6-1.2) mg/dl Est Cr Clr Drug Dosing ml/min Est GFR ( Amer) ml/min Est GFR (Non-Af Amer) ml/min BUN/Creatinine Ratio (10-20) Glucose (70-99(Fasting)) mg/dl Osmolality (280-300) mOsm/kg Lactate (0.4-2.0) mmol/L Calcium (8.6-10.3) mg/dl Phosphorus (2.5-4.9) mg/dl Magnesium (1.7-2.4) mg/dl Total Bilirubin (0.2-1.0) mg/dl Direct Bilirubin (0-0.2) mg/dl AST (13-39) U/L ALT (7-52) U/L Alkaline Phosphatase (34-104) U/L Total Creatine Kinase (26-192) U/L Troponin I High Sens (0-14) pg/ml C-Reactive Protein (0-0.5) mg/dl Total Protein (6.0-8.3) gm/dl Albumin (3.4-5.0) gm/dl Lipase (11-82) U/L Procalcitonin (0-0.5) ng/ml TSH (0.300-4.500) uIu/ml Urine Color Urine Appearance (Clear) Urine pH (4.5-7.5) Ur Specific [place] (1.000-1.030) Urine Protein (Negative) Urine Glucose (UA) (Negative) Urine Ketones (Negative) Urine Blood (Negative) Urine Nitrite (Negative) Urine Bilirubin (Negative) Urine Urobilinogen (Negative) Ur Leukocyte Esterase (Negative) Urine WBC (Auto) (0-5) /hpf Urine RBC (Auto) (0-4) /hpf U Hyaline Cast (Auto) (0-5) /lpf U Epithel Cells (Auto) (0-5) /lpf Urine Bacteria (Auto) (Negative) Urine Yeast Urine Osmolality (500-800) mOsm/kg Ur Random Sodium mmol/L Anaplasma Smear See Comment Babesia Smear See Comment Lyme Disease IgG Ab (Negative) Lyme Disease IgM Ab (Negative) SARS-CoV-2 (PCR) (Negative) Influenza Type A (PCR) (Neg) Influenza Type B (PCR) (Neg) RSV (RT-PCR) (Neg) Administered Medications Acetaminophen (Acetaminophen 325 Mg Tab) 650 mg PO QID PRN PRN Reason: Pain/fever Stop: 02/28/23 16:00 Last Admin: 01/29/23 17:00 Dose: 650 mg Documented By: RRR Carvedilol (Carvedilol 12.5 Mg Tab) 12.5 mg PO BID FOR[facility], 1928–1983 Stop: 02/28/23 20:59 Last Admin: 01/29/23 21:05 Dose: 12.5 mg Documented By: ROSA Hydralazine HCl (Hydralazine Hcl 25 Mg Tab) 75 mg PO TID FORMERLY [facility], 1928–1983 Stop: 02/28/23 16:00 Last Admin: 01/29/23 21:05 Dose: 75 mg Documented By: Admin: 01/29/23 17:02 Dose: 75 mg Documented By: RRR Potassium Chloride/Sodium Chloride (Normal Saline W/20 Meq Kcl) 20 meq in 1,000 mls @ 100 mls/hr IV .Q10H FOR[facility]LY [facility], 1928–1983 Stop: 01/30/23 02:00 Last Admin: 01/29/23 18:40 Dose: 100 mls/hr Documented By: NATHAN Doxycycline Hyclate 100 mg/ (Dextrose) 110 mls @ 50 mls/hr IV Q12H VIMAL Stop: 02/12/23 20:59 Last Admin: 01/29/23 21:06 Dose: 50 mls/hr Documented By: ROSA Losartan Potassium (Losartan Potassium 50 Mg Tab) 100 mg PO HS VIMAL Stop: 02/28/23 20:59 Last Admin: 01/29/23 21:04 Dose: 100 mg Documented By: ROSA Discontinued Medications Sodium Chloride (Nss 1000ml) 1,000 mls @ 999 mls/hr IV .Q1H1M ONE Stop: 01/29/23 09:27 Last Infusion: 01/29/23 10:58 Dose: 0 mls/hr Documented By: Admin: 01/29/23 09:16 Dose: 999 mls/hr Documented By: LAZARUS Acetaminophen (Ofirmev) 1,000 mg in 100 mls @ 400 mls/hr IV NOW STA Stop: 01/29/23 08:41 Last Infusion: 01/29/23 09:33 Dose: 0 mls/hr Documented By: Admin: 01/29/23 09:16 Dose: 400 mls/hr Documented By: LAZARUS Ceftriaxone Sodium (Rocephin) 2,000 mg in 70 mls @ 140 mls/hr IV NOW STA Stop: 01/29/23 12:06 Last Infusion: 01/29/23 12:32 Dose: 0 mls/hr Documented By: Admin: 01/29/23 12:01 Dose: 140 mls/hr Documented By: LAZARUS Doxycycline Hyclate 100 mg/ (Dextrose) 110 mls @ 50 mls/hr IV NOW STA Stop: 01/29/23 13:48 Last Infusion: 01/29/23 16:40 Dose: 0 mls/hr Documented By: Admin: 01/29/23 12:29 Dose: 50 mls/hr Documented By: LAZARUS Ioversol (Optiray 320 100ml) 84 ml IV ONCE ONE Stop: 01/29/23 10:23 Last Admin: 01/29/23 10:22 Dose: 84 ml Documented By: RACHEL Imaging Data Radiologist's Impression: Abdomen/Pelvis CT 01/29/23 09:[address] WITH IV CONTRAST CT DOSE: 1465.12 mGy.cm HISTORY: Acute fever with urinary tract infection fever, UTI TECHNIQUE: Multiaxial CT images of the abdomen and pelvis were performed following the IV administration of 84 cc of Optiray, A dose lowering technique was utilized adhering to the principles of ALARA. COMPARISON STUDY: CT abdomen and pelvis 06/14/2020 FINDINGS: Small pleural effusions with mild subsegmental bibasilar atelectasis. Pectus excavatum. Cardiomegaly. No pneumatosis or pneumoperitoneum. The study is mildly degraded by respiratory motion artifact. Unremarkable spleen and left adrenal gland. Benign-appearing coarse right adrenal calcifications are again noted. Mild to moderate pancreatic atrophy. 1.4 cm cystic focus involving the pancreatic head on image 119 is similar in edward earance to the prior exam suggestive of a sidebranch IPMN. Unremarkable gallbladder. 0.5 cm hypodense lesion of the intrahepatic lobe on image 98 is unchanged suggestive of a hepatic hemangioma. Patency of the hepatic and portal veins. On bile duct measures 7 mm transversely. Symmetric enhancement of the kidneys. There is no hydronephrosis. Mild distention of the urinary bladder with mild wall thickening. Heterogeneity of the anteflexed uterus. Trace abdominal pelvic ascites. Atherosclerosis of the aorta and branch vessels without aneurysm. No lymphadenopathy. Small hiatal hernia with mild distal esophageal wall thickening. No bowel obstruction. Moderate colonic fecal retention. No bowel wall thickening identified. Stool filled loops of small bowel noted within the lower abdomen and pelvis. The appendix is not definitively seen. No secondary signs of acute appendicitis. Unremarkable soft tissues. No acute fracture. Degenerative changes of the spine, pelvis and hips. Chronic appearing T12 compression deformity. IMPRESSION: 1. No bowel obstruction, bowel wall thickening or pneumoperitoneum. 2. Small pleural effusions with trace abdominal pelvic ascites. 3. The appendix is not visualized with certainty. If there is further clinical concern to evaluate the appendix, enteric contrast may be utilized. 4. Moderate fecal retention. 5. Small hiatal hernia with mild distal esophageal wall thickening suspicious for esophagitis. 6. Suggested cystitis. 7. Additional findings as above. ACT 112: Negative or not required by law. The above report was generated using voice recognition software. It may contain grammatical, syntax or spelling errors. Electronically signed by: Karlo Ocampo M.D. 01/29/2023 11:[address] 01/29/23 09:49 CT head/brain wo con CLINICAL HISTORY: 87 years-old Female with fever, headache. Acute fever with headache TECHNIQUE: Multiple axial CT images of the head were obtained without contrast. A dose lowering technique was utilized adhering to the principles of ALARA. COMPARISON: None. FINDINGS: No acute intracranial hemorrhage, midline shift, intracranial mass, hydrocephalus, territorial ischemia or abnormal extra-axial collection. Involutional changes with chronic microvascular ischemic disease. The calvarium is intact. Mastoid air cells are clear. Mild mucosal thickening of the ethmoid air cells. Unremarkable soft tissues. Prior bilateral lens repair. IMPRESSION: No acute intracranial abnormality. ACT 112: Negative or not required by law. The above report was generated using voice recognition software. It may contain grammatical, syntax or spelling errors. Electronically signed by: Karlo Ocampo M.D. 01/29/2023 10:45 AM Discharge Plan Visit Data Chief Complaint: Urinary Symptoms Stated Complaint: FEVER, DEHYDRATED, UTI ED Provider: Rome Rowe Discharge Problem: Acute febrile illness, Thrombocytopenia, Transaminitis, Lymphopenia, Hyponatremia Patient Disposition: Admitted As Inpatient Discharge Instructions Interventions: ED Discharge Assessment Last Done: 01/29/23 14:36
--- NOTE | 2023-01-29 08:47 | XRay Report ---
XR chest 1V portable HISTORY: 87 years-old Female Sepsis acute sepsis COMPARISON: 05/05/2020 TECHNIQUE: AP view of the chest FINDINGS: Cardiac silhouette is enlarged. Atherosclerosis of the aorta. Chronic interstitial coarsening. No pne umothorax, large pleural effusion, airspace consolidation or overt pulmonary edema. Bones of the ches t appear grossly intact. Calcifications of the carotid vasculature. IMPRESSION: Cardiomegaly without acute process. ACT 112: Negative or not required by law. The above report was generated using voice recognition software. It may contain grammatical, syntax o r spelling errors. Electronically signed by: Karlo Ocampo M.D. 01/29/2023 8:46 AM
[2023-01-29 08:53] LABS: Appearance Urine Cloudy (Clear); Bilirubin Urine Negative (Negative); Blood Urine Negative (Negative); Color Urine Yellow; Epithelial Cell Urine Auto >30 /lpf (0-5); Glucose Urine UA Negative (Negative); Ketones Urine Negative (Negative); Leukocyte Esterase Urine Negative (Negative); Nitrite Urine Negative (Negative); Protein Urine 2+ (Negative); RBC Urine Automated 0-4 /hpf (0-4); Specific Gravity Urine 1.024 (1.000-1.030); Urobilinogen Urine Negative (Negative); pH Urine 5.5 (4.5-7.5)
[2023-01-29 09:38] LABS: Bacteria Urine Automated 1+ (Negative); Cast Urine Automated 0 /lpf (0-5)
[2023-01-29 09:40] LABS: Albumin Level 3.5 gm/dl (3.4-5.0); BUN Creatinine Ratio 22.2 (10-20); Bilirubin Direct 0.1 mg/dl (0-0.2); Bilirubin,Total 0.5 mg/dl (0.2-1.0); Calcium 8.5 mg/dl (8.6-10.3); Creatinine Clr Calc Pharmacy 42.8 ml/min; Est GFR (African American) 67.6 ml/min; Est GFR (Non-African American) 58.3 ml/min; Magnesium 1.9 mg/dl (1.7-2.4); Phosphorus 2.8 mg/dl (2.5-4.9); Potassium 3.6 mmol/L (3.5-5.1)
[2023-01-29 09:44] LABS: Troponin I High Sensitivity 17.6 pg/ml (0-14)
[2023-01-29 09:46] LABS: INR 1.2 (0.9-1.1); Prothrombin Time 13.2 Seconds (9.0-12.0)
[2023-01-29 09:55] LABS: Procalcitonin 0.67 ng/ml (0-0.5)
[2023-01-29 10:01] LABS: Lyme Ab IgG w/WB Rflx Negative (Negative); Lyme Ab IgM w/WB Rflx Negative (Negative)
[2023-01-29 10:14] LABS: Influenza A virus by PCR Negative (Neg); Influenza B virus by PCR Negative (Neg); RSV by PCR Negative (Neg); SARS CoV2 RNA(COVID-19) Ceph NEGATIVE (Negative)
[2023-01-29 10:21] LABS: Hematocrit (blood only) 33.6 % (37.0-47.0); Hemoglobin 11.8 g/dl (12.0-16.0); Mean Corpuscular Hgb Conc 35.1 g/dL (32.0-36.0); Mean Corpuscular Volume 88.2 fL (80.0-100.0); Mean Platelet Volume 11.4 fL (9.4-12.4); Platelet Count 93 K/uL (130-400); RDW Coefficient of Variation 12.4 % (11.5-14.5); RDW Standard Deviation 39.9 fL (36.4-46.3); Red Blood Count 3.81 M/uL (4.20-5.40)
[2023-01-29] MEDS ORDERED: OPTIRAY 320 100ml IV ONE (10:22)
[2023-01-29 10:23] LABS: Agglutinated RBC 1+; Basophils # (auto) 0.01 K/uL (0-0.2); Basophils % (auto) 0.4 %; Immature Granulocytes # (auto) 0.01 K/uL (0.01-0.20); Immature Granulocytes % (auto) 0.4 %; Lymphocytes # (auto) 0.29 K/uL (1.2-3.4); Lymphocytes % (auto) 10.4 %; Monocytes # (auto) 0.09 K/uL (0.11-0.59); Monocytes % (auto) 3.2 %; Neutrophils % (auto) 85.6 %
--- NOTE | 2023-01-29 10:47 | CT Scan Report ---
CT head/brain wo con CLINICAL HISTORY: 87 years-old Female with fever, headache. Acute fever with headache TECHNIQUE: Multiple axial CT images of the head were obtained without contrast. A dose lowering tech nique was utilized adhering to the principles of ALARA. COMPARISON: None. FINDINGS: No acute intracranial hemorrhage, midline shift, intracranial mass, hydrocephalus, territorial ischem ia or abnormal extra-axial collection. Involutional changes with chronic microvascular ischemic disea se. The calvarium is intact. Mastoid air cells are clear. Mild mucosal thickening of the ethmoid air shavon ls. Unremarkable soft tissues. Prior bilateral lens repair. IMPRESSION: No acute intracranial abnormality. ACT 112: Negative or not required by law. The above report was generated using voice recognition software. It may contain grammatical, syntax o r spelling errors. Electronically signed by: Karlo Ocampo M.D. 01/29/2023 10:45 AM
--- NOTE | 2023-01-29 11:20 | CT Scan Report ---
ABDOMEN AND PELVIS CT WITH IV CONTRAST CT DOSE: 1465.12 mGy.cm HISTORY: Acute fever with urinary tract infection fever, UTI TECHNIQUE: Multiaxial CT images of the abdomen and pelvis were performed following the IV administrat ion of 84 cc of Optiray, A dose lowering technique was utilized adhering to the principles of ALARA. COMPARISON STUDY: CT abdomen and pelvis 06/14/2020 FINDINGS: Small pleural effusions with mild subsegmental bibasilar atelectasis. Pectus excavatum. Car diomegaly. No pneumatosis or pneumoperitoneum. The study is mildly degraded by respiratory motion art ifact. Unremarkable spleen and left adrenal gland. Benign-appearing coarse right adrenal calcifications are again noted. Mild to moderate pancreatic atrophy. 1.4 cm cystic focus involving the pancreatic head o n image 119 is similar in appearance to the prior exam suggestive of a sidebranch IPMN. Unremarkable gallbladder. 0.5 cm hypodense lesion of the intrahepatic lobe on image 98 is unchanged suggestive of a hepatic hemangioma. Patency of the hepatic and portal veins. On bile duct measures 7 mm transversel y. Symmetric enhancement of the kidneys. There is no hydronephrosis. Mild distention of the urinary blad filemon with mild wall thickening. Heterogeneity of the anteflexed uterus. Trace abdominal pelvic ascites . Atherosclerosis of the aorta and branch vessels without aneurysm. No lymphadenopathy. Small hiatal hernia with mild distal esophageal wall thickening. No bowel obstruction. Moderate colon ic fecal retention. No bowel wall thickening identified. Stool filled loops of small bowel noted with in the lower abdomen and pelvis. The appendix is not definitively seen. No secondary signs of acute a ppendicitis. Unremarkable soft tissues. No acute fracture. Degenerative changes of the spine, pelvis and hips. Chronic appearing T12 compression deformity. IMPRESSION: 1. No bowel obstruction, bowel wall thickening or pneumoperitoneum. 2. Small pleural effusions with trace abdominal pelvic ascites. 3. The appendix is not visualized with certainty. If there is further clinical concern to evaluate th e appendix, enteric contrast may be utilized. 4. Moderate fecal retention. 5. Small hiatal hernia with mild distal esophageal wall thickening suspicious for esophagitis. 6. Suggested cystitis. 7. Additional findings as above. ACT 112: Negative or not required by law. The above report was generated using voice recognition software. It may contain grammatical, syntax o r spelling errors. Electronically signed by: Karlo Ocampo M.D. 01/29/2023 11:18 AM
[2023-01-29] MEDS ORDERED: cefTRIAXone SODIUM 2,000 MG/70 ML BAG IV STA (11:37)
[2023-01-29] MEDS ORDERED: DOXYCYCLINE HYCLATE 100 MG in DEXTROSE 5% 100 ML IV STA (11:37)
--- NOTE | 2023-01-29 11:54 | History & Physical Report ---
Date of Service January 29, 2023 Assessment & Plan (1) Fever: Plan: Fever, chills, weakness. Suspect anaplasmosis versus UTI. Acute, unstable - Acute care visit 2 days ago ?uti --> keflex with no improvement No leukocytosis, patient is neutropenic. Hemoglobin 11.8, baseline around 12, MCV 88 Platelet count 93 Patient is with mild pancytopenia Sodium 129, baseline appears mid to high 130s Creatinine is less than 1 at baseline, admitting creatinine 0.9 CK 273, trend w/ fluids. Patient had had positive MARILYN in the past. ESR/CRP are ordered and pending. Mild transaminitis AST/ALT 85/57 new from prior Procalcitonin 0.67 On treatment for UTI. Repeat UA contaminated versus infected appearing, greater than 30 epithelial cells but 1+ bacteria. Patient with positive Lyme IgG 12/22/2021, 1 IgM band reactive on block, 2 IgG bands reactive on blot at that time CThead: No acute findings CTA/P with IV contrast: Appendix poorly visualized. Moderate fecal retention. Suspected cystitis. Distal esophageal wall thickening suspicious for esophagitis. Trace pleural effusions/trace abdominal pelvic ascites. No evidence of obstruction/wall thickening/free air. CXR: Cardiomegaly without acute process High-sensitivity troponin 17.6, suspect demand Patient continued on Rocephin/doxycycline - EKG: no ischemic/ST changed Hyponatremia. Acute, history of prior episodes ? Low solute versus SIADH With SSRI use Intermittent in the past Urine studies pending, hold SSRI, follow post fluids Elevated troponin, acute Suspect demand, no acute ischemic change on EKG Echo pending. Patient with systolic murmur, no prior echo for review HTN, chronic well-controlled - Adequately controlled on admit - Low salt - Amlodipine 10mg daily - ASA 81mg - Diltiazem 240mg XR daily - Hydralazine 25mg TID GERD, chronic - Omeprazole converted to protonix Anxiety, chronic suboptimal control due to grief - With loss of in the last year -Hold Lexapro for hyponatremia Hyperlipidemia - Diet managed DVT prophylaxis: Defer pharmacal prophylaxis in the setting of thrombocytopenia, SCDs Diet: Low-salt Disposition: Medical telemetry for troponin trend CODE STATUS: DNR/DNI (2) Dyslipidemia: (3) Hypertension: (4) Anxiety: History of Present Illness Primary Care Provider: Dawna Silverman DO Ximena is an 87-year-old female who presented for weakness, fever, and UTI unimproved on Keflex Patient seen at the bedside. She reports she feels much better after receiving some fluids. She notes that she has not had any dysuria or polyuria. Has had a little nocturia, but in the last day has had much reduced urine output and has felt much more tired. She reports she has had fevers and felt generally weak and unwell since Saturday. She has not any chest pain, chest pressure, shortness of breath, syncope, presyncope. She [place] and is outside often, has not noticed any rashes or tick bites recently. Did have Lyme 3 years ago. She reports she has had lower extremity muscle aches of around 2 days but no rash and no leg swelling. She saw urgent care for UTI on Saturday, was placed on Keflex which she has been taking but which has not helped her symptoms. No other attempted treatment. Denies any history of heart or lung disease. No history of heart attack, no stents. No blood thinners. Medical History: Reviewed Medications: Reviewed Surgical History: Reviewed Family history: Reviewed Allergies: Reviewed Social History: Reviewed Code Status: DNR/DNI Allergies Allergy/AdvReac Type Severity Reaction Status Date / Time No Known Drug Allergies Allergy Unknown Verified 01/29/23 11:30 Home Medications Medication Instructions Recorded Confirmed Type aspirin 81 mg tablet,delayed 81 mg PO QAM 01/06/20 01/29/23 History release acetaminophen 325 mg tablet 650 mg PO QID PRN Pain 05/20/20 01/29/23 History (Tylenol) multivitamin-ferrous 1 tab PO QAM 05/20/20 01/29/23 History fumarate-folic acid 18 mg-400 mcg tablet (Centrum) vitamins A,C,W-bcgh-ctrfij 4,296 1 cap PO BID 07/31/22 01/29/23 History mcg-226 mg-90 mg capsule (PreserVision AREDS) escitalopram oxalate 20 mg tablet 20 mg PO QAM #90 tabs 08/20/22 01/29/23 Rx olmesartan 40 mg tablet 40 mg PO HS #90 tabs 08/31/22 01/29/23 Rx carvedilol 12.5 mg tablet 12.5 mg PO BID #180 tabs 10/12/22 01/29/23 Rx diltiazem HCl 240 mg 240 mg PO QAM #90 tabs 10/19/22 01/29/23 Rx tablet,extended release 24 hr hydralazine 25 mg tablet 75 mg PO TID #270 tabs 11/08/22 01/29/23 Rx amlodipine 10 mg tablet 10 mg PO DAILY #90 tabs 11/09/22 01/29/23 Rx lorazepam 0.5 mg tablet 0.5 mg PO DAILY PRN Anxiety #30 01/07/23 01/29/23 Rx tabs cephalexin 500 mg capsule 500 mg PO BID 01/29/23 01/29/23 History Past Med/Surg History Medical History Acute Lyme disease (05/2020) Anxiety Dyslipidemia Hypertension Lumbar spinal stenosis Surgical History History of skin surgery 1987 S/P bilateral cataract extraction (03/2022) Family History Mother Hypertension Brother Lung cancer Sister Ovarian cancer Denies family history of Prostate cancer Myocardial infarction Breast cancer Colorectal cancer Social History Smoking Status: Never smoker Second Hand Exposure: No; Do You Dip or Chew Tobacco: No; Hx Alcohol Use: No Hx Substance Use: No Preferred Language: Chinese Communication Ability: Effective Visual Impairment: Limited Hearing Ability: Normal 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 Beliefs That Will Affect Care: Sikh Sikh Beliefs: Mosque marital status: / marital status details: lost of 64 yrs Jun 2022 Current Living Situation: Alone current occupational status: other current occupation: Homemaker How many Children do You have: 5 Feels Safe at Home: Yes Childhood Exposure to Second-Hand Smoke: Yes Diet: regular Diet Comment: regular caffeine: Yes during the past year weight has: remained stable Dental Care, Regularly: No Physical Activity Frequency: Daily Seatbelt Use: always Sunscreen Use: Yes Assistive Devices: None Review of Systems Review of Systems: All systems reviewed & are unremarkable except as noted in HPI & below Physical Exam Physical Exam: General: A&Ox3. NAD. Cooperative. HEENT: Atraumatic, normocephalic. Vision and hearing grossly intact Pulm: CTAB A&P. -wheezes, -rales, -rhonchi. Symmetrical chest rise. No increased work of breathing. No respiratory distress. Cardiac: RRR,+sm. Radial pulses intact and symmetrical. Abdominal: Nontender, nondistended, soft. BS present. Ext: Warm, dry. Moves all extremities equally. Skin: No rash. Left posterior scapula with postsurgical well-healed scar. Results & Data Results & Data Vital Signs (Past 12 Hours) Vital Signs Temp Pulse Pulse Resp BP BP Pulse Ox 01/29/23 11:13 63 20 124/61 93 01/29/23 09:20 68 01/29/23 08:40 90 01/29/23 08:10 37.5 C 81 18 149/67 H 94 O2 Del Method 01/29/23 11:13 Room Air 01/29/23 09:20 01/29/23 08:40 Room Air 01/29/23 08:10 PG Care Time/CCT Total # of Minutes Spent Total Time Spent with Patient: Total time spent is greater than 50% in coordination of care (as documented) at patient's floor/unit and/or counseling patient: Coding Level of Care Code 55432 INT INP/OBS CARE 3/75MIN Diagnoses Fever R50.9 Dyslipidemia E78.5 Hypertension I10 Hypertension type: unspecified Anxiety F41.9 (3) Hypertension Hypertension type: unspecified Qualified Code(s): I10 - Essential (primary) hypertension
[2023-01-29 12:48] LABS: C Reactive Protein 7.1 mg/dl (0-0.5)
--- NOTE | 2023-01-29 15:40 | XCELERA ---
[id number]
[2023-01-29] MEDS ORDERED: NSS + 20MEQ KCL 20 MEQ/1,000 ML BAG IV SCH (16:01)
[2023-01-29] MEDS ORDERED: ONDANSETRON INJ 2 MG/ML 2 ML VIAL IV PRN (16:01)
[2023-01-29] MEDS: ACETAMINOPHEN 325 MG TAB PO PRN (17:00)
[2023-01-29] MEDS: hydrALAZINE HCL 25 MG TAB PO SCH ×2 (17:02→21:05)
--- NOTE | 2023-01-29 20:23 | Electrocardiogram Report ---
Test Reason : Blood Pressure : / mmHG Vent. Rate : 070 BPM Atrial Rate : 070 BPM P-R Int : 196 ms QRS Dur : 094 ms QT Int : 422 ms P-R-T Axes : 080 014 060 degrees QTc Int : 455 ms Normal sinus rhythm Normal ECG When compared with ECG of 14-JUN-2020 20:00, Nonspecific T wave abnormality now evident in Inferior leads T wave inversion more evident in Anterior leads Confirmed by Jairo Smith [id number] on 01/29/2023 8:23:15 PM Referred By: REFERRED SELF Confirmed By:Fredi Smith
[2023-01-29] MEDS: LOSARTAN POTASSIUM 50 MG TAB PO SCH (21:04)
[2023-01-29] MEDS: carvediloL 12.5 MG TAB PO SCH (21:05)
[2023-01-29] MEDS: DOXYCYCLINE HYCLATE 100 MG in DEXTROSE 5% 100 ML IV SCH (21:06)
[2023-01-30 04:04] LABS: BUN Creatinine Ratio 19.7 (10-20); C Reactive Protein 9.39 mg/dl (0-0.5); Calcium 8.2 mg/dl (8.6-10.3); Creatinine Clr Calc Pharmacy 54.2 ml/min; Est GFR (Non-African American) 77.7 ml/min; Potassium 3.8 mmol/L (3.5-5.1)
[2023-01-30 04:49] LABS: Hematocrit (blood only) 30.8 % (37.0-47.0); Hemoglobin 10.9 g/dl (12.0-16.0); Mean Corpuscular Hemoglobin 31.6 pg (25.0-34.0); Mean Corpuscular Hgb Conc 35.4 g/dL (32.0-36.0); Mean Corpuscular Volume 89.3 fL (80.0-100.0); Platelet Count 3 K/uL (130-400); RDW Coefficient of Variation 12.4 % (11.5-14.5); RDW Standard Deviation 39.8 fL (36.4-46.3); Red Blood Count 3.45 M/uL (4.20-5.40); White Blood Count 2.27 K/ul (4.8-10.8)
[2023-01-30 05:11] LABS: Basophils # (auto) 0.02 K/uL (0-0.2); Basophils % (auto) 0.9 %; Immature Granulocytes # (auto) 0.01 K/uL (0.01-0.20); Immature Granulocytes % (auto) 0.4 %; Lymphocytes # (auto) 0.78 K/uL (1.2-3.4); Lymphocytes % (auto) 34.4 %; Monocytes # (auto) 0.11 K/uL (0.11-0.59); Monocytes % (auto) 4.8 %; Neutrophils # (auto) 1.35 K/uL (1.40-6.50); Neutrophils % (auto) 59.5 %; Platelet Estimate Signific. Decreased (Normal); RBC Morphology Unremarkable
[2023-01-30] MEDS: ACETAMINOPHEN 325 MG TAB PO PRN ×2 (05:49→17:22)
[2023-01-30 05:55] LABS: Hematocrit (blood only) 33.8 % (37.0-47.0); Hemoglobin 12.1 g/dl (12.0-16.0); Mean Corpuscular Hgb Conc 35.8 g/dL (32.0-36.0); Mean Corpuscular Volume 86.7 fL (80.0-100.0); Mean Platelet Volume 13.1 fL (9.4-12.4); Platelet Count 3 K/uL (130-400); RDW Coefficient of Variation 12.4 % (11.5-14.5); RDW Standard Deviation 39.7 fL (36.4-46.3); White Blood Count 2.55 K/ul (4.8-10.8)
--- NOTE | 2023-01-30 06:21 | Communication Note ---
Date of Service: January 30, 2023 4:51 Received notice patient's platelets were at 3, ordered repeat CBC unchanged. Patient seated comfortably in bed, denies any pain SOB on 4L NC, no new rashes, states she didn't sleep well last night due to vitals checks. She denies any bleeding or bruising. Obtained consent for blood product transfusion. Ordered 1U platelets to be transfused now. Patient has not received any heparin during admission.
--- NOTE | 2023-01-30 08:52 | Hospitalist Progress Note ---
Date of Service January 30, 2023 Assessment & Plan (1) Fever: Plan: Fever, chills, weakness. Suspect anaplasmosis versus UTI. Acute, unstable * CT head negative * Acute care visit 2 days ago ?uti --> keflex with no improvement * No leukocytosis, patient is neutropenic. * Hemoglobin 11.8, baseline around 12, MCV 88 * Platelet count 93 --> 3 x 2 * --> unit of platelets this morning ordered. monitor repeat cbc. 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 Distal esophageal wall thickening suspicious for esophagitis. Trace pleural effusions/trace abdominal pelvic ascites. No evidence of obstruction/wall thickening/free air. --> PPI daily as below. Monitor response/increase PPI if needed Procal 0.67 Repeat UA contaminated vs infected (>30 epi, but 1+ bacteria) - monitor culture Continue Doxy/Ceftriaxone IV for now Monitor blood cultures (last temp 38.2C this AM 01/30 around 540) PT/OT consults pending Hypoxia Is s/p 1L in ER for poor PO intake. Up to 4L this morning. Mag 1.9 on admit CXR repeated for today -- cardiomegaly with mild pulmonary edema. Mild bibasilar atelectasis. trace b/l effusions - Lasix 20mg IV x 1 and monitor response - Incentive spirometer Gastritis/Reflux - chronic reflux at home reported/belching per patient/daughter at bedside - ordered Protonix qam this morning given findings on imaging, ate lunch without issue and reported improvement in appetite - would continue at least once daily PPI at d/c given findings but if any increa sed issues consider increasing to BID vs BID + carafate (consider if switching to PO Doxycycline at d/c, but need to be clear about esophagitis risks/drinking plenty of water with Doxy use) Hyponatremia. Acute, history of prior episodes ? Low solute versus SIADH, ?SSRI use Urine studies w/ Na125. Fluid restriction 1500ml daily Monitor repeat BMP w/ lasix use Elevated troponin, acute Suspect demand, no acute ischemic change on EKG Echo without WMA. Suspect demand ischemia from infection/volume overload (IVC dilation) HTN, chronic well-controlled BP stable, 161/64 Remains on amlodipine 10mg daily, diltiazem 240mg, hydralazine 25mg TID Olmesartan converted to losartan 100mg while inpatient Monitor GERD, chronic NOT ON MEDICATION AT HOME - gastritis on imaging as above started once daily protonix -- continue at d/c. 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 Consider outpt f/u DVT proph : SCDS. No chemoproph given thrombocytopenia (2) Dyslipidemia: (3) Hypertension: (4) Anxiety: Admission and Anticipated Discharge Date Admission Date: January 29, 2023 Supervising Physician Co-Signing Physician Notes The patient was not seen by me. The chart was reviewed. Case discussed with HARSH Bland. Agree with assessment and plan Subjective eval this afternoon, daughter at bedside. stated feeling better, ate turkey and mashed potatoes for lunch - first time she's been eating much in past week. Daughter reports in ER was first time she was hungry. No bleeding reported - got unit of platelets this morning and discussed repea ting labs. No chest pain reported or shortness of breath despite oxygen use.On oxygen, no home use. Wheezing on exam, occasional cough/no sputum production. CXR obtained which shows some congestion. Discussed dose of lasix for findings/hypoxia and will monitor. No further fevers since this morning. Does have some chills at times but resolved with warm blanket. She did get dose of Protonix this morning for gastritis on imaging -- discussed symptoms -- reported decent amount of increased belching recently and has been ongoing issue. No dysphagia but +reflux. Discussed continuing once a day but can increase to twice a day as needed. Physical Exam Physical Exam: General: WD/WN elderly female resting in bed, blankets in place, NAD, daughter at bedside (Vero) HEENT: head normocephalic, atraumatic, mmm, trace JVD Resp: diminished in the bases, expiratory wheezing, no cough, no tachypnea, on 4L NC CV: regular rate/rhythm, faint systolic murmur, trace pedal edema, calves nontender GI: +BS, soft/NT : no royal MSK/Neuro: no focal deficits, no slurred speech Skin: no bullseye rash, skin perfused Results & Data Results & Data Vital Signs (Past 12 Hours) Vital Signs Temp Pulse Pulse Resp BP Pulse Ox O2 Del Method 01/30/23 07:58 37.5 C 77 16 144/64 H 95 Nasal Cannula 01/30/23 07:49 81 01/30/23 05:41 38.2 C H 88 18 167/69 H 93 Nasal Cannula 01/30/23 03:38 37.4 C 82 18 183/62 H 93 Nasal Cannula 01/29/23 22:00 64 01/29/23 23:21 36.8 C 73 18 151/64 H 93 Nasal Cannula O2 Flow Rate 01/30/23 07:58 4 01/30/23 07:49 01/30/23 05:41 4 01/30/23 03:38 4 01/29/23 22:00 01/29/23 23:21 2 Laboratory Results 01/30/23 01/30/23 01/30/23 Range/Units 08:29 05:19 03:18 WBC 2.55 L (4.8-10.8) K/ul RBC 3.90 L (4.20-5.40) M/uL Hgb 12.1 (12.0-16.0) g/dl Hct 33.8 L (37.0-47.0) % MCV 86.7 (80.0-100.0) fL MCH 31.0 (25.0-34.0) pg MCHC 35.8 (32.0-36.0) g/dL RDW Std Deviation 39.7 (36.4-46.3) fL RDW Coeff of Yuval 12.4 (11.5-14.5) % Plt Count 3 L* (130-400) K/uL MPV 13.1 H (9.4-12.4) fL Immature Gran % (Auto) % Neut % (Auto) % Lymph % (Auto) % [place] % (Auto) % Eos % (Auto) % Baso % (Auto) % Neut # (Auto) (1.40-6.50) K/uL Lymph # (Auto) (1.2-3.4) K/uL [place] # (Auto) (0.11-0.59) K/uL Eos # (Auto) (0-0.50) K/uL Baso # (Auto) (0-0.2) K/uL Immature Gran # (Auto) (0.01-0.20) K/uL Platelet Estimate (Normal) RBC Morphology Sodium 132 L (136-145) mmol/L Potassium 3.8 (3.5-5.1) mmol/L Chloride 103 (98-107) mmol/L Carbon Dioxide 22 (21-32) mmol/L Anion Gap 7 (3-11) BUN 14 (6-23) mg/dl Creatinine 0.71 (0.6-1.2) mg/dl Est Cr Clr Drug Dosing 54.2 ml/min Est GFR ( Amer) 90.0 ml/min Est GFR (Non-Af Amer) 77.7 ml/min BUN/Creatinine Ratio 19.7 (10-20) Glucose 96 (70-99(Fasting)) mg/dl Calcium 8.2 L (8.6-10.3) mg/dl Total Creatine Kinase 184 (26-192) U/L Troponin I High Sens 21.4 H (0-14) pg/ml C-Reactive Protein 9.39 H (0-0.5) mg/dl Urine Osmolality (500-800) mOsm/kg Ur Random Sodium mmol/L Blood Type Antibody Screen 01/30/23 01/30/23 01/30/23 Range/Units 03:18 03:18 03:15 WBC 2.27 L (4.8-10.8) K/ul RBC 3.45 L (4.20-5.40) M/uL Hgb 10.9 L (12.0-16.0) g/dl Hct 30.8 L (37.0-47.0) % MCV 89.3 (80.0-100.0) fL MCH 31.6 (25.0-34.0) pg MCHC 35.4 (32.0-36.0) g/dL RDW Std Deviation 39.8 (36.4-46.3) fL RDW Coeff of Yuval 12.4 (11.5-14.5) % Plt Count 3 L* D (130-400) K/uL MPV (9.4-12.4) fL Immature Gran % (Auto) 0.4 % Neut % (Auto) 59.5 % Lymph % (Auto) 34.4 % [place] % (Auto) 4.8 % Eos % (Auto) 0.0 % Baso % (Auto) 0.9 % Neut # (Auto) 1.35 L (1.40-6.50) K/uL Lymph # (Auto) 0.78 L (1.2-3.4) K/uL [place] # (Auto) 0.11 (0.11-0.59) K/uL Eos # (Auto) 0.00 (0-0.50) K/uL Baso # (Auto) 0.02 (0-0.2) K/uL Immature Gran # (Auto) 0.01 (0.01-0.20) K/uL Platelet Estimate Signific. Decreased L (Normal) RBC Morphology Unremarkable Sodium (136-145) mmol/L Potassium (3.5-5.1) mmol/L Chloride (98-107) mmol/L Carbon Dioxide (21-32) mmol/L Anion Gap (3-11) BUN (6-23) mg/dl Creatinine (0.6-1.2) mg/dl Est Cr Clr Drug Dosing ml/min Est GFR ( Amer) ml/min Est GFR (Non-Af Amer) ml/min BUN/Creatinine Ratio (10-20) Glucose (70-99(Fasting)) mg/dl Calcium (8.6-10.3) mg/dl Total Creatine Kinase (26-192) U/L Troponin I High Sens 15.9 H (0-14) pg/ml C-Reactive Protein (0-0.5) mg/dl Urine Osmolality (500-800) mOsm/kg Ur Random Sodium mmol/L Blood Type B Positive Antibody Screen NEGATIVE 01/29/23 01/29/23 01/29/23 Range/Units 20:22 16:33 08:20 WBC (4.8-10.8) K/ul RBC (4.20-5.40) M/uL Hgb (12.0-16.0) g/dl Hct (37.0-47.0) % MCV (80.0-100.0) fL MCH (25.0-34.0) pg MCHC (32.0-36.0) g/dL RDW Std Deviation (36.4-46.3) fL RDW Coeff of Yuval (11.5-14.5) % Plt Count (130-400) K/uL MPV (9.4-12.4) fL Immature Gran % (Auto) % Neut % (Auto) % Lymph % (Auto) % [place] % (Auto) % Eos % (Auto) % Baso % (Auto) % Neut # (Auto) (1.40-6.50) K/uL Lymph # (Auto) (1.2-3.4) K/uL [place] # (Auto) (0.11-0.59) K/uL Eos # (Auto) (0-0.50) K/uL Baso # (Auto) (0-0.2) K/uL Immature Gran # (Auto) (0.01-0.20) K/uL Platelet Estimate (Normal) RBC Morphology Sodium (136-145) mmol/L Potassium (3.5-5.1) mmol/L Chloride (98-107) mmol/L Carbon Dioxide (21-32) mmol/L Anion Gap (3-11) BUN (6-23) mg/dl Creatinine (0.6-1.2) mg/dl Est Cr Clr Drug Dosing ml/min Est GFR ( Amer) ml/min Est GFR (Non-Af Amer) ml/min BUN/Creatinine Ratio (10-20) Glucose (70-99(Fasting)) mg/dl Calcium (8.6-10.3) mg/dl Total Creatine Kinase (26-192) U/L Troponin I High Sens 16.1 H 14.7 H (0-14) pg/ml C-Reactive Protein (0-0.5) mg/dl Urine Osmolality (500-800) mOsm/kg Ur Random Sodium 64 mmol/L Blood Type Antibody Screen 01/29/23 Range/Units 08:20 WBC (4.8-10.8) K/ul RBC (4.20-5.40) M/uL Hgb (12.0-16.0) g/dl Hct (37.0-47.0) % MCV (80.0-100.0) fL MCH (25.0-34.0) pg MCHC (32.0-36.0) g/dL RDW Std Deviation (36.4-46.3) fL RDW Coeff of Yuval (11.5-14.5) % Plt Count (130-400) K/uL MPV (9.4-12.4) fL Immature Gran % (Auto) % Neut % (Auto) % Lymph % (Auto) % [place] % (Auto) % Eos % (Auto) % Baso % (Auto) % Neut # (Auto) (1.40-6.50) K/uL Lymph # (Auto) (1.2-3.4) K/uL [place] # (Auto) (0.11-0.59) K/uL Eos # (Auto) (0-0.50) K/uL Baso # (Auto) (0-0.2) K/uL Immature Gran # (Auto) (0.01-0.20) K/uL Platelet Estimate (Normal) RBC Morphology Sodium (136-145) mmol/L Potassium (3.5-5.1) mmol/L Chloride (98-107) mmol/L Carbon Dioxide (21-32) mmol/L Anion Gap (3-11) BUN (6-23) mg/dl Creatinine (0.6-1.2) mg/dl Est Cr Clr Drug Dosing ml/min Est GFR ( Amer) ml/min Est GFR (Non-Af Amer) ml/min BUN/Creatinine Ratio (10-20) Glucose (70-99(Fasting)) mg/dl Calcium (8.6-10.3) mg/dl Total Creatine Kinase (26-192) U/L Troponin I High Sens (0-14) pg/ml C-Reactive Protein (0-0.5) mg/dl Urine Osmolality 658 (500-800) mOsm/kg Ur Random Sodium mmol/L Blood Type Antibody Screen Diagnostic Findings Chest X-Ray 01/29/23 08:25 XR chest 1V portable HISTORY: 87 years-old Female Sepsis acute sepsis COMPARISON: 05/05/2020 TECHNIQUE: AP view of the chest FINDINGS: Cardiac silhouette is enlarged. Atherosclerosis of the aorta. Chronic interstitial coarsening. No pneumothorax, large pleural effusion, airspace consolidation or overt pulmonary edema. Bones of the chest appear grossly intact. Calcifications of the carotid vasculature. IMPRESSION: Cardiomegaly without acute process. ACT 112: Negative or not required by law. The above report was generated using voice recognition software. It may contain grammatical, syntax or spelling errors. Electronically signed by: Karlo Ocampo M.D. 01/29/2023 8:46 AM Abdomen/Pelvis CT 01/29/23 09:[address] WITH IV CONTRAST CT DOSE: 1465.12 mGy.cm HISTORY: Acute fever with urinary tract infection fever, UTI TECHNIQUE: Multiaxial CT images of the abdomen and pelvis were performed following the IV administration of 84 cc of Optiray, A dose lowering technique was utilized adhering to the principles of ALARA. COMPARISON STUDY: CT abdomen and pelvis 06/14/2020 FINDINGS: Small pleural effusions with mild subsegmental bibasilar atelectasis. Pectus excavatum. Cardiomegaly. No pneumatosis or pneumoperitoneum. The study is mildly degraded by respiratory motion artifact. Unremarkable spleen and left adrenal gland. Benign-appearing coarse right adrenal calcifications are again noted. Mild to moderate pancreatic atrophy. 1.4 cm cystic focus involving the pancreatic head on image 119 is similar in appearance to the prior exam suggestive of a sidebranch IPMN. Unremarkable gallbladder. 0.5 cm hypodense lesion of the intrahepatic lobe on image 98 is unchanged suggestive of a hepatic hemangioma. Patency of the hepatic and portal veins. On bile duct measures 7 mm transversely. Symmetric enhancement of the kidneys. There is no hydronephrosis. Mild distention of the urinary bladder with mild wall thickening. Heterogeneity of the anteflexed uterus. Trace abdominal pelvic ascites. Atherosclerosis of the aorta and branch vessels without aneurysm. No lymphadenopathy. Small hiatal hernia with mild distal esophageal wall thickening. No bowel obstruction. Moderate colonic fecal retention. No bowel wall thickening identified. Stool filled loops of small bowel noted within the lower abdomen and pelvis. The appendix is not definitively seen. No secondary signs of acute appendicitis. Unremarkable soft tissues. No acute fracture. Degenerative changes of the spine, pelvis and hips. Chronic appearing T12 compression deformity. IMPRESSION: 1. No bowel obstruction, bowel wall thickening or pneumoperitoneum. 2. Small pleural effusions with trace abdominal pelvic ascites. 3. The appendix is not visualized with certainty. If there is further clinical concern to evaluate the appendix, enteric contrast may be utilized. 4. Moderate fecal retention. 5. Small hiatal hernia with mild distal esophageal wall thickening suspicious for esophagitis. 6. Suggested cystitis. 7. Additional findings as above. ACT 112: Negative or not required by law. The above report was generated using voice recognition software. It may contain grammatical, syntax or spelling errors. Electronically signed by: Karlo Ocampo M.D. 01/29/2023 11:[address] 01/29/23 09:49 CT head/brain wo con CLINICAL HISTORY: 87 years-old Female with fever, headache. Acute fever with headache TECHNIQUE: Multiple axial CT images of the head were obtained without contrast. A dose lowering technique was utilized adhering to the principles of ALARA. COMPARISON: None. FINDINGS: No acute intracranial hemorrhage, midline shift, intracranial mass, hydrocephalus, territorial ischemia or abnormal extra-axial collection. Involutional changes with chronic microvascular ischemic disease. The calvarium is intact. Mastoid air cells are clear. Mild mucosal thickening of the ethmoid air cells. Unremarkable soft tissues. Prior bilateral lens repair. IMPRESSION: No acute intracranial abnormality. ACT 112: Negative or not required by law. The above report was generated using voice recognition software. It may contain grammatical, syntax or spelling errors. Electronically signed by: Karlo Ocampo M.D. 01/29/2023 10:45 AM Chest X-Ray 01/30/23 08:12 XR chest 1V portable HISTORY: 87 years-old Female hypoxia, eval overload acute hypoxia COMPARISON: CT abdomen and pelvis 01/29/2023 TECHNIQUE: AP view of the chest FINDINGS: Cardiac silhouette is enlarged. Pulmonary vascular congestion. Mild bibasilar opacities with probable trace pleural effusions. Interstitial coarsening. No pneumothorax. Degenerative changes of the shoulders and spine. IMPRESSION: 1. Cardiomegaly with mild pulmonary edema. 2. Mild bibasilar atelectasis. 3. Trace pleural effusions. ACT 112: Negative or not required by law. The above report was generated using voice recognition software. It may contain grammatical, syntax or spelling errors. Electronically signed by: Karlo Ocampo M.D. 01/30/2023 8:57 AM PG Care Time/CCT Total # of Minutes Spent Total Time Spent with Patient: Total time spent is greater than 50% in coordination of care (as documented) at patient's floor/unit and/or counseling patient: Coding Level of Care Code 84878 SUB INP/OBS CARE 3/50MIN Diagnoses Fever R50.9 Dyslipidemia E78.5 Hypertension I10 Hypertension type: unspecified Anxiety F41.9 (3) Hypertension Hypertension type: unspecified Qualified Code(s): I10 - Essential (primary) hypertension
--- NOTE | 2023-01-30 08:59 | XRay Report ---
XR chest 1V portable HISTORY: 87 years-old Female hypoxia, eval overload acute hypoxia COMPARISON: CT abdomen and pelvis 01/29/2023 TECHNIQUE: AP view of the chest FINDINGS: Cardiac silhouette is enlarged. Pulmonary vascular congestion. Mild bibasilar opacities with probable trace pleural effusions. Interstitial coarsening. No pneumothorax. Degenerative changes of the shoul ders and spine. IMPRESSION: 1. Cardiomegaly with mild pulmonary edema. 2. Mild bibasilar atelectasis. 3. Trace pleural effusions. ACT 112: Negative or not required by law. The above report was generated using voice recognition software. It may contain grammatical, syntax o r spelling errors. Electronically signed by: Karlo Ocampo M.D. 01/30/2023 8:57 AM
[2023-01-30] MEDS ORDERED: PANTOprazole 40 MG TAB PO SCH (09:00)
[2023-01-30] MEDS ORDERED: ASPIRIN 81 MG ECTAB PO SCH (09:00)
[2023-01-30] MEDS: DOXYCYCLINE HYCLATE 100 MG in DEXTROSE 5% 100 ML IV SCH ×2 (09:42→20:18)
[2023-01-30] MEDS: amLODIPine BESYLATE 5 MG TAB PO SCH (09:46)
[2023-01-30] MEDS: dilTIAZem HCL 240 MG CAPCR PO SCH (09:46)
[2023-01-30] MEDS: carvediloL 12.5 MG TAB PO SCH ×2 (09:46→20:13)
[2023-01-30] MEDS: hydrALAZINE HCL 25 MG TAB PO SCH ×3 (09:46→20:24)
[2023-01-30] MEDS ORDERED: FUROSEMIDE INJ 20 MG/2 ML VIAL IV ONE ×3 (13:30→21:00)
[2023-01-30] MEDS: cefTRIAXone SODIUM 2,000 MG in DEXTROSE 5% 50 ML IV SCH (13:45)
[2023-01-30] MEDS: LORazepam 0.5 MG TAB PO PRN (14:11)
[2023-01-30] MEDS ORDERED: LORazepam 2 MG/1 ML VIAL IV STA (14:31)
[2023-01-30] MEDS ORDERED: MAGNESIUM SULFATE / D5W 1 GM/100 ML BAG IV ONE ×2 (14:37→16:15)
[2023-01-30 15:31] LABS: Base Excess ABG 2.4 mEq/L (-9-1.8); HCO3 ABG 25 mmol/L (19-24); Oxygen Saturation ABG 97.9 % (90-95); PCO2 ABG 32 mmHg (35-46); PO2 ABG 76 mmHg (80-95)
[2023-01-30 15:32] LABS: Allen Test POS (Pos)
[2023-01-30 15:55] LABS: Calcium 8.7 mg/dl (8.6-10.3); Magnesium 1.6 mg/dl (1.7-2.4); Potassium 3.9 mmol/L (3.5-5.1)
[2023-01-30 16:00] LABS: BUN Creatinine Ratio 21.2 (10-20); Est GFR (African American) 56.7 ml/min
[2023-01-30] MEDS ORDERED: OPTIRAY 320 500ml IV ONE (16:12)
[2023-01-30] MEDS ORDERED: fentaNYL 12 MCG/HR TDSY TD SCH (16:30)
--- NOTE | 2023-01-30 16:32 | CT Scan Report ---
CT ANGIOGRAM OF THE CHEST CLINICAL HISTORY: Dyspnea COMPARISON STUDY: Chest x-ray dated 01/30/2023. Abdominal CT dated 01/29/2023. TECHNIQUE: Following the IV administration of 111 cc of Optiray 320, CT angiogram of the chest was pe rformed from the upper abdomen to the thoracic inlet utilizing the pulmonary embolus protocol. Images are reviewed in the axial, sagittal, and coronal planes. 3-D MIPS images are created and assessed. I V contrast was administered without complication. A dose lowering technique was utilized adhering to the principles of ALARA. The examination is significantly degraded by motion artifact. CT DOSE: 571.18 mGy.cm FINDINGS: Thyroid: Mildly enlarged and heterogeneous. Thoracic aorta: There is atherosclerotic calcification of the thoracic aorta, which is normal in aranza naz and demonstrates standard 3-vessel arch anatomy. No dissection is seen. Pulmonary vasculature: The pulmonary trunk is normal in caliber. There are no filling defects identif ied in main or lobar pulmonary branches to suggest pulmonary embolus. The segmental and subsegmental branches cannot be evaluated due to motion artifact. Heart: The heart is enlarged and without pericardial effusion. There are coronary artery calcificatio ns. Lungs and pleural spaces: Evaluation of the lung parenchyma is compromised by motion artifact. There are small pleural effusions with dependent consolidation. Intralobular septal thickening is noted. Bi lateral airspace opacities are seen throughout both lungs. The trachea and central airways appear rosenda ar. Mediastinum: Mildly enlarged mediastinal nodes measure up to 11 mm short axis. Carol Ann: Mildly enlarged hilar nodes measure up to 10 mm in short axis. Axillae: There is no axillary lymphadenopathy. Upper abdomen: A small hiatal hernia is noted. Partially visualized upper abdominal viscera is otherw ise grossly unremarkable. Skeletal structures: The skeletal structures are osteopenic. Degenerative change and hyperkyphosis is noted throughout the thoracic spine. A hemangioma is noted in the body of T12. No lytic or blastic b gayathri lesions are seen. Arthritic change is noted in the shoulders. IMPRESSION: 1. Significantly motion compromised examination. 2. There is no evidence of central pulmonary embolus in the main or lobar pulmonary arteries. The seg mental and subsegmental branches cannot be evaluated due to motion artifact. 3. Cardiomegaly with evidence of congestive failure. 4. Multifocal bilateral airspace opacities likely represent pulmonary edema. Correlate clinically for evidence of a superimposed infectious/inflammatory pneumonitis. Radiographic follow up resolution is recommended. 5. Small pleural effusions with dependent consolidation. 6. Additional findings as above. ACT 112: Negative or not required by law. Electronically signed by: Rudolph Diaz M.D. 01/30/2023 4:31 PM
[2023-01-30 16:46] LABS: Hematocrit (blood only) 34.1 % (37.0-47.0); Hemoglobin 12.5 g/dl (12.0-16.0); Mean Corpuscular Hemoglobin 33.3 pg (25.0-34.0); Mean Corpuscular Hgb Conc 36.7 g/dL (32.0-36.0); Mean Corpuscular Volume 90.9 fL (80.0-100.0); Platelet Count 11 K/uL (130-400); Red Blood Count 3.75 M/uL (4.20-5.40)
--- NOTE | 2023-01-30 17:07 | Communication Note ---
Date of Service: January 30, 2023 CT chest negative for PE, but did note motion compromised exam. Was up to 15L Oxymask this afternoon -- worsened after initial dose of lasix but hours after her platelet transfusion Good UOP and down to 7L Oxymask this afternoon. CT chest did note evidence for congestive failure, cardiomegaly. Multifocal bilateral airspace opacities likely represent pulmonary edema. ?infectious/inflammator pneumonitis not exlcluded. Denied aspiration, but significant gastritis/PPI added as outlined in plan. Could be pneumonitis as well. Noting small pleural effusions w/ dependent consolidation. On ceftriaxone/Doxy for abx, will check MRSA nasal for completeness (ECHO w/o significant valvular abnormalities) Will order additional dose of lasix 40mg IV x 1 for tonight, repeat CBC/BMP (platelets improved to 11-- will order additional unit) Will schedule solumedrol 60mg Q8H per direction of supervising provider. Monitor response/CXR in AM
[2023-01-30] MEDS ORDERED: methylPREDNISolone 60 MG in SYRINGE 0 ML IV SCH (17:15)
[2023-01-30] MEDS ORDERED: dexAMETHasone 4 MG TAB PO ONE ×2 (17:57→18:15)
--- NOTE | 2023-01-30 18:00 | Communication Note ---
Date of Service: January 30, 2023 Also, aspirin previously placed on hold but was given dose this morning. Discussed w/ Dr Perez -- continue to hold aspirin. Recs for decadron 40mg x 4 days. Did already get dose solu-medrol x1 and will give 20mg decadron today and start 40mg for tomorrow. Not TTP, cr stable. Hematology going to check peripheral smear Thinks immune reaction, could be sepsis from her current infection Added fingersticks to monitor sugars. Add SSI if needed.
[2023-01-30] MEDS ORDERED: FUROSEMIDE 40 MG/4 ML VIAL IV ONE (19:00)
[2023-01-30] MEDS: PANTOprazole 40 MG TAB PO SCH (20:15)
[2023-01-30] MEDS: LOSARTAN POTASSIUM 50 MG TAB PO SCH (20:24)
[2023-01-31] MEDS ORDERED: CHECK fentaNYL PATCH PLACEMENT SCH
[2023-01-31 00:14] LABS: BUN Creatinine Ratio 22.9 (10-20); Calcium 8.5 mg/dl (8.6-10.3); Creatinine Clr Calc Pharmacy 35.3 ml/min; Est GFR (African American) 53.6 ml/min; Est GFR (Non-African American) 46.3 ml/min; Magnesium 2.3 mg/dl (1.7-2.4)
[2023-01-31 00:42] LABS: Hematocrit (blood only) 30.4 % (37.0-47.0); Hemoglobin 10.8 g/dl (12.0-16.0); Mean Corpuscular Hemoglobin 30.9 pg (25.0-34.0); Mean Corpuscular Hgb Conc 35.5 g/dL (32.0-36.0); Mean Corpuscular Volume 86.9 fL (80.0-100.0); Mean Platelet Volume 13.2 fL (9.4-12.4); Platelet Count 19 K/uL (130-400); Platelet Estimate Signific. Decreased (Normal); RDW Coefficient of Variation 12.4 % (11.5-14.5); RDW Standard Deviation 39.5 fL (36.4-46.3); White Blood Count 3.72 K/ul (4.8-10.8)
[2023-01-31] MEDS: POTASSIUM CHLORIDE / WTR 10 MEQ/100 ML PLCT IV SCH ×4 (01:29→04:44)
--- NOTE | 2023-01-31 05:49 | Consultation ---
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 Her history, exam, and CT scans do not suggest a lymphoproliferative or other occult malignant disorder. She did not receive heparin or enoxaparin this admission and has had no unusual toxic exposures either historically or in the immediate time prior to her illness onset. While she did have some mild and transient leukopenia and has developed a mild anemia, her thrombocytopenia is significantly out of proportion to those. Is also developed quite sharply suggesting an abrupt onset of platelet destruction rather than simple decreased production. HIV and hepatitis C screens would be "routine" in the face of a possible ITP like presentation. Those have been submitted. Creatinine is stable and TTP/HUS spectrum seems unlikely though a peripheral smear review by pathology has been requested to specifically assess for schistocytes and also for any more subtle suggestions of an underlying lymphoproliferative disorder. We will also include a reticulocyte count and LDH in her assessment. I will submit quantitative immunoglobulins to make sure that there is no suggestion of any significant underlying immunodeficiency. Folic acid and B12 will be checked though 1 would expect that those if deficient would be associated with a more pancytopenia and as well with a more significant macrocytosis. Liver panel is being rechecked. Drug-induced immune thrombocytopenia is always an important part of the differential. While cephalosporins have some low-level association with drug- induced thrombocytopenia and she had been on cephalexin prior to admission, that remains a very unlikely offender and certainly not at the level of suspicion that piperacillin or vancomycin might be. Continuation of current cephalosporin is associated with improvement so I do not think that there is sufficient concern to discontinue that. Lasix has been associated with thrombocytopenia but clearly the onset of that process preceded the use of that medication. Escitalopram may occasionally be associated with thrombocytopenia and can be associated with platelet dysfunction, may want to consider a brief hold on that though the likelihood of it is contributing to the platelet count numerical drop seems small. Hydralazine is more often associated with white cell and red cell abnormalities. While aspirin is not associated with thrombocytopenia, it too was associated with platelet dysfunction and has been appropriately placed on hold. Overall, we seem to be most likely dealing with an acute immune thrombocytopenia possibly triggered by the infection itself. She does not have a history of diabetes or clear contraindications to steroids, she did receive a dose of Solu- Medrol today I would augment that with an additional dose of dexamethasone 20 mg for an overall functional equivalent of 40 mg day 1 dose and then continue a dexamethasone course of 40 mg for 3 additional days (total 4). Depending on platelet count response we could consider augmenting that with immunoglobulin. We will then have to monitor platelets closely in the days and weeks to come for any relapse that might instigate more comprehensive work-up or definitive intervention with thrombopoietin receptor agonist, rituximab, etc. Plan 1. Pending laboratory screening as above 2. Platelet transfusion in the face of ITP is rarely helpful unless there is nico and concerning bleeding. Transfuse platelets are consumed rapidly. Would hold on transfusions unless we do see major signs of wet purpura, obvious hemorrhage, or severe petechiae 3. Aspirin is on hold and may want to consider at least a brief hold of her escitalopram 4. Would administer the equivalent of a 4-day course of dexamethasone at 40 mg daily Will follow History of Present Illness Reason for Consultation: Thrombocytopenia Attending Physician: Kiet Huffman MD History of Present Illness 87-year-old generally healthy woman admitted with febrile illness and rapidly evolving thrombocytopenia in the context of mild anemia and transient leukopenia Patient has no history of ITP specifically nor blood disorders in general. She did have a skin cancer 30 years ago, possibly melanoma, but has been followed closely by dermatology since then and has had no new issues with skin krys gnancies particularly nor any issues with other malignancy in the interim. There is no family history of unusual patterns of malignancy or of unusual blood disorders. She did not work outside the home and has no history of toxic exposures. She eats a regular meat including diet. She is never been a tobacco user and only a scant alcohol user. She had been generally well up until 3 to 5 days prior to admission when she developed some general malaise, GI distress and then was admitted with a more acute febrile illness. We note that on admission CT scans showed some marginal and nonspecific adenopathy in the chest up to 11 mm, no significant abdominal adenopathy, no splenomegaly and certainly no localized mass of concern. Platelet counts have been historically normal in both December and July 2022, were 90,000 on admission and had fallen precipitously since then to approximately 10,000 range. This has not been associated with any major bleeding, petechiae, or unusual bruising. SARS/COV2 screen was negative on admission she did have some marginal elevations of liver enzymes, transient leukopenia which seems to be improving and has developed a very mild anemia She does feel improved since admission. Allergies Allergy/AdvReac Type Severity Reaction Status Date / Time No Known Drug Allergies Allergy Unknown Verified 01/29/23 11:30 Home Medications Medication Instructions Recorded Confirmed Type aspirin 81 mg tablet,delayed 81 mg PO QAM 01/06/20 01/29/23 History release acetaminophen 325 mg tablet 650 mg PO QID PRN Pain 05/20/20 01/29/23 History (Tylenol) multivitamin-ferrous 1 tab PO QAM 05/20/20 01/29/23 History fumarate-folic acid 18 mg-400 mcg tablet (Centrum) vitamins A,C,Q-kkhf-oarzla 4,296 1 cap PO BID 07/31/22 01/29/23 History mcg-226 mg-90 mg capsule (PreserVision AREDS) escitalopram oxalate 20 mg tablet 20 mg PO QAM #90 tabs 08/20/22 01/29/23 Rx olmesartan 40 mg tablet 40 mg PO HS #90 tabs 08/31/22 01/29/23 Rx carvedilol 12.5 mg tablet 12.5 mg PO BID #180 tabs 10/12/22 01/29/23 Rx diltiazem HCl 240 mg 240 mg PO QAM #90 tabs 10/19/22 01/29/23 Rx tablet,extended release 24 hr hydralazine 25 mg tablet 75 mg PO TID #270 tabs 11/08/22 01/29/23 Rx amlodipine 10 mg tablet 10 mg PO DAILY #90 tabs 11/09/22 01/29/23 Rx lorazepam 0.5 mg tablet 0.5 mg PO DAILY PRN Anxiety #30 01/07/23 01/29/23 Rx tabs cephalexin 500 mg capsule 500 mg PO BID 01/29/23 01/29/23 History Patient History Medical History Acute Lyme disease (05/2020) Anxiety Dyslipidemia Hypertension Lumbar spinal stenosis Surgical History History of skin surgery 1986 S/P bilateral cataract extraction (03/2022) Family History Mother Hypertension Brother Lung cancer Sister Ovarian cancer Denies family history of Prostate cancer Myocardial infarction Breast cancer Colorectal cancer Social History Smoking Status: Never smoker Second Hand Exposure: No; Do You Dip or Chew Tobacco: No; Hx Alcohol Use: No Hx Substance Use: No Preferred Language: [place] Communication Ability: Effective Visual Impairment: Limited Hearing Ability: Normal Enterostomal Therapy Nurse Required: No Beliefs That Will Affect Care: None marital status: / marital status details: lost of 62 yrs Jun 2022 Current Living Situation: Alone current occupational status: other current occupation: Homemaker How many Children do You have: 5 Feels Safe at Home: Yes Safety Concerns: Feels Safe At This Time Childhood Exposure to Second-Hand Smoke: Yes Diet: regular Diet Comment: regular caffeine: Yes during the past year weight has: remained stable Dental Care, Regularly: No Physical Activity Frequency: Daily Seatbelt Use: always Sunscreen Use: Yes Assistive Devices: None Physical Exam Physical Exam: Fever spike to 39.4 on the day of admission but otherwise has been essentially afebrile. Vital signs are currently stable Patient is wearing an oxygen mask but is alert, cooperative, and seems in no acute distress. Her lungs seem clear without focal rubs rales or wheezes. Cardiac rhythm is mildly bradycardic but regular without clearly pathologic murmur. Her abdomen seems benign and specifically there is no splenic enlargement or tenderness in the left upper quadrant. There is no palpable pathologic adenopathy in the cervical, supraclavicular, axillary regions. Skin does not show any unusual bruising or petechiae Results & Data Vital Signs (Past 12 Hours) Vital Signs Temp Pulse Pulse Resp BP BP Pulse Ox 01/30/23 17:34 37.4 C 83 20 179/67 H 90 01/30/23 17:16 37.4 C 95 H 20 180/70 H 91 01/30/23 16:34 36.8 C 89 20 181/64 H 93 01/30/23 15:37 38.1 C H 85 24 156/73 H 92 01/30/23 15:26 92 01/30/23 08:00 01/30/23 13:19 37.1 C 74 18 161/64 H 91 01/30/23 11:45 36.7 C 70 16 139/69 91 01/30/23 11:43 36.6 C 66 18 143/64 H 92 01/30/23 11:15 36.6 C 70 18 156/62 H 93 01/30/23 11:00 36.8 C 66 16 149/62 H 95 01/30/23 10:40 36.6 C 74 18 151/66 H 95 01/30/23 07:58 37.5 C 77 16 144/64 H 95 01/30/23 07:49 81 01/30/23 05:41 38.2 C H 88 18 167/69 H 93 O2 Del Method O2 Flow Rate 01/30/23 17:34 9 01/30/23 17:16 7 01/30/23 16:34 Oxymask 7 01/30/23 15:37 Oxymask 7 01/30/23 15:26 Oxymask 14 01/30/23 08:00 Nasal Cannula 3 01/30/23 13:19 4 01/30/23 11:45 4 01/30/23 11:43 3 01/30/23 11:15 3 01/30/23 11:00 01/30/23 10:40 01/30/23 07:58 Nasal Cannula 4 01/30/23 07:49 01/30/23 05:41 Nasal Cannula 4 Laboratory Results Abnormal lab results 01/30/23 01/30/23 01/30/23 Range/Units 05:19 08:29 15:12 WBC 2.55 L (4.8-10.8) K/ul RBC 3.90 L 3.75 L (4.20-5.40) M/uL Hgb (12.0-16.0) g/dl Hct 33.8 L 34.1 L (37.0-47.0) % MCHC 36.7 H (32.0-36.0) g/dL Plt Count 3 L* 11 L* D (130-400) K/uL MPV 13.1 H (9.4-12.4) fL Platelet Estimate (Normal) ABG pH (7.35-7.45) ABG pCO2 (35-46) mmHg ABG pO2 (80-95) mmHg ABG HCO3 (19-24) mmol/L ABG O2 Saturation (90-95) % ABG Base Excess (-9-1.8) mEq/L Sodium (136-145) mmol/L Potassium (3.5-5.1) mmol/L Chloride (98-107) mmol/L BUN (6-23) mg/dl BUN/Creatinine Ratio (10-20) Glucose (70-99(Fasting)) mg/dl POC Glucose (70-99) mg/dl Calcium (8.6-10.3) mg/dl Magnesium (1.7-2.4) mg/dl Troponin I High Sens 21.4 H (0-14) pg/ml B-Natriuretic Peptide (0-100) pg/ml 01/30/23 01/30/23 01/30/23 Range/Units 15:12 15:24 22:12 WBC (4.8-10.8) K/ul RBC (4.20-5.40) M/uL Hgb (12.0-16.0) g/dl Hct (37.0-47.0) % MCHC (32.0-36.0) g/dL Plt Count (130-400) K/uL MPV (9.4-12.4) fL Platelet Estimate (Normal) ABG pH 7.50 H (7.35-7.45) ABG pCO2 32 L (35-46) mmHg ABG pO2 76 L (80-95) mmHg ABG HCO3 25 H (19-24) mmol/L ABG O2 Saturation 97.9 H (90-95) % ABG Base Excess 2.4 H (-9-1.8) mEq/L Sodium 131 L (136-145) mmol/L Potassium (3.5-5.1) mmol/L Chloride 97 L (98-107) mmol/L BUN (6-23) mg/dl BUN/Creatinine Ratio 21.2 H (10-20) Glucose 153 H (70-99(Fasting)) mg/dl POC Glucose 221 H (70-99) mg/dl Calcium (8.6-10.3) mg/dl Magnesium 1.6 L (1.7-2.4) mg/dl Troponin I High Sens (0-14) pg/ml B-Natriuretic Peptide (0-100) pg/ml 01/30/23 01/30/23 01/30/23 Range/Units 23:24 23:24 23:24 WBC 3.72 L (4.8-10.8) K/ul RBC 3.50 L (4.20-5.40) M/uL Hgb 10.8 L (12.0-16.0) g/dl Hct 30.4 L (37.0-47.0) % MCHC (32.0-36.0) g/dL Plt Count 19 L* D (130-400) K/uL MPV 13.2 H (9.4-12.4) fL Platelet Estimate Signific. Decreased L (Normal) ABG pH (7.35-7.45) ABG pCO2 (35-46) mmHg ABG pO2 (80-95) mmHg ABG HCO3 (19-24) mmol/L ABG O2 Saturation (90-95) % ABG Base Excess (-9-1.8) mEq/L Sodium 132 L (136-145) mmol/L Potassium 3.0 L D (3.5-5.1) mmol/L Chloride 95 L (98-107) mmol/L BUN 25 H (6-23) mg/dl BUN/Creatinine Ratio 22.9 H (10-20) Glucose 180 H (70-99(Fasting)) mg/dl POC Glucose (70-99) mg/dl Calcium 8.5 L (8.6-10.3) mg/dl Magnesium (1.7-2.4) mg/dl Troponin I High Sens (0-14) pg/ml B-Natriuretic Peptide 220 H (0-100) pg/ml Diagnostic Findings Chest X-Ray 01/29/23 08:25 XR chest 1V portable HISTORY: 87 years-old Female Sepsis acute sepsis COMPARISON: 05/05/2020 TECHNIQUE: AP view of the chest FINDINGS: Cardiac silhouette is enlarged. Atherosclerosis of the aorta. Chronic interstitial coarsening. No pneumothorax, large pleural effusion, airspace consolidation or overt pulmonary edema. Bones of the chest appear grossly intact. Calcifications of the carotid vasculature. IMPRESSION: Cardiomegaly without acute process. ACT 112: Negative or not required by law. The above report was generated using voice recognition software. It may contain grammatical, syntax or spelling errors. Electronically signed by: Karlo Oacmpo M.D. 01/29/2023 8:46 AM Abdomen/Pelvis CT 01/29/23 09:[address] WITH IV CONTRAST CT DOSE: 1465.12 mGy.cm HISTORY: Acute fever with urinary tract infection fever, UTI TECHNIQUE: Multiaxial CT images of the abdomen and pelvis were performed following the IV administration of 84 cc of Optiray, A dose lowering technique was utilized adhering to the principles of ALARA. COMPARISON STUDY: CT abdomen and pelvis 06/14/2020 FINDINGS: Small pleural effusions with mild subsegmental bibasilar atelectasis. Pectus excavatum. Cardiomegaly. No pneumatosis or pneumoperitoneum. The study is mildly degraded by respiratory motion artifact. Unremarkable spleen and left adrenal gland. Benign-appearing coarse right adrenal calcifications are again noted. Mild to moderate pancreatic atrophy. 1.4 cm cystic focus involving the pancreatic head on image 119 is similar in appearance to the prior exam suggestive of a sidebranch IPMN. Unremarkable gallbladder. 0.5 cm hypodense lesion of the intrahepatic lobe on image 98 is unchanged suggestive of a hepatic hemangioma. Patency of the hepatic and portal veins. On bile duct measures 7 mm transversely. Symmetric enhancement of the kidneys. There is no hydronephrosis. Mild distention of the urinary bladder with mild wall thickening. Heterogeneity of the anteflexed uterus. Trace abdominal pelvic ascites. Atherosclerosis of the aorta and branch vessels without aneurysm. No lymphadenopathy. Small hiatal hernia with mild distal esophageal wall thickening. No bowel obstruction. Moderate colonic fecal retention. No bowel wall thickening identified. Stool filled loops of small bowel noted within the lower abdomen and pelvis. The appendix is not definitively seen. No secondary signs of acute appendicitis. Unremarkable soft tissues. No acute fracture. Degenerative changes of the spine, pelvis and hips. Chronic appearing T12 compression deformity. IMPRESSION: 1. No bowel obstruction, bowel wall thickening or pneumoperitoneum. 2. Small pleural effusions with trace abdominal pelvic ascites. 3. The appendix is not visualized with certainty. If there is further clinical concern to evaluate the appendix, enteric contrast may be utilized. 4. Moderate fecal retention. 5. Small hiatal hernia with mild distal esophageal wall thickening suspicious for esophagitis. 6. Suggested cystitis. 7. Additional findings as above. ACT 112: Negative or not required by law. The above report was generated using voice recognition software. It may contain grammatical, syntax or spelling errors. Electronically signed by: Karlo Ocampo M.D. 01/29/2023 11:[address] 01/29/23 09:49 CT head/brain wo con CLINICAL HISTORY: 87 years-old Female with fever, headache. Acute fever with headache TECHNIQUE: Multiple axial CT images of the head were obtained without contrast. A dose lowering technique was utilized adhering to the principles of ALARA. COMPARISON: None. FINDINGS: No acute intracranial hemorrhage, midline shift, intracranial mass, hydrocephalus, territorial ischemia or abnormal extra-axial collection. Involutional changes with chronic microvascular ischemic disease. The calvarium is intact. Mastoid air cells are clear. Mild mucosal thickening of the ethmoid air cells. Unremarkable soft tissues. Prior bilateral lens repair. IMPRESSION: No acute intracranial abnormality. ACT 112: Negative or not required by law. The above report was generated using voice recognition software. It may contain grammatical, syntax or spelling errors. Electronically signed by: Karlo Ocampo M.D. 01/29/2023 10:45 AM Chest X-Ray 01/30/23 08:12 XR chest 1V portable HISTORY: 87 years-old Female hypoxia, eval overload acute hypoxia COMPARISON: CT abdomen and pelvis 01/29/2023 TECHNIQUE: AP view of the chest FINDINGS: Cardiac silhouette is enlarged. Pulmonary vascular congestion. Mild bibasilar opacities with probable trace pleural effusions. Interstitial coarsening. No pneumothorax. Degenerative changes of the shoulders and spine. IMPRESSION: 1. Cardiomegaly with mild pulmonary edema. 2. Mild bibasilar atelectasis. 3. Trace pleural effusions. ACT 112: Negative or not required by law. The above report was generated using voice recognition software. It may contain grammatical, syntax or spelling errors. Electronically signed by: Karlo Ocampo M.D. 01/30/2023 8:57 AM Chest CTA 01/30/23 15:14 CT ANGIOGRAM OF THE CHEST CLINICAL HISTORY: Dyspnea COMPARISON STUDY: Chest x-ray dated 01/30/2023. Abdominal CT dated 01/29/2023. TECHNIQUE: Following the IV administration of 111 cc of Optiray 320, CT angiogram of the chest was performed from the upper abdomen to the thoracic inlet utilizing the pulmonary embolus protocol. Images are reviewed in the axial, sagittal, and coronal planes. 3-D MIPS images are created and assessed. IV contrast was administered without complication. A dose lowering technique was utilized adhering to the principles of ALARA. The examination is significantly degraded by motion artifact. CT DOSE: 571.18 mGy.cm FINDINGS: Thyroid: Mildly enlarged and heterogeneous. Thoracic aorta: There is atherosclerotic calcification of the thoracic aorta, which is normal in caliber and demonstrates standard 3-vessel arch anatomy. No dissection is seen. Pulmonary vasculature: The pulmonary trunk is normal in caliber. There are no filling defects identified in main or lobar pulmonary branches to suggest pulmonary embolus. The segmental and subsegmental branches cannot be evaluated due to motion artifact. Heart: The heart is enlarged and without pericardial effusion. There are coronary artery calcifications. Lungs and pleural spaces: Evaluation of the lung parenchyma is compromised by motion artifact. There are small pleural effusions with dependent consolidation. Intralobular septal thickening is noted. Bilateral airspace opacities are seen throughout both lungs. The trachea and central airways appear clear. Mediastinum: Mildly enlarged mediastinal nodes measure up to 11 mm short axis. Carol Ann: Mildly enlarged hilar nodes measure up to 10 mm in short axis. Axillae: There is no axillary lymphadenopathy. Upper abdomen: A small hiatal hernia is noted. Partially visualized upper abdominal viscera is otherwise grossly unremarkable. Skeletal structures: The skeletal structures are osteopenic. Degenerative change and hyperkyphosis is noted throughout the thoracic spine. A hemangioma is noted in the body of T12. No lytic or blastic bony lesions are seen. Arthritic change is noted in the shoulders. IMPRESSION: 1. Significantly motion compromised examination. 2. There is no evidence of central pulmonary embolus in the main or lobar pulmonary arteries. The segmental and subsegmental branches cannot be evaluated due to motion artifact. 3. Cardiomegaly with evidence of congestive failure. 4. Multifocal bilateral airspace opacities likely represent pulmonary edema. Correlate clinically for evidence of a superimposed infectious/inflammatory pneumonitis. Radiographic follow up resolution is recommended. 5. Small pleural effusions with dependent consolidation. 6. Additional findings as above. ACT 112: Negative or not required by law. Electronically signed by: Rudolph Diaz M.D. 01/30/2023 4:31 PM PG Care Time/CCT Total # of Minutes Spent Total Time Spent with Patient: Total time spent is greater than 50% in coordination of care (as documented) at patient's floor/unit and/or counseling patient: [place] [address] IN/OBS CONSULT LVL 4,60M Patient Type New History Expanded Problem Focused Exam Expanded Problem Focused Medical Decision Making High Complexity Diagnoses Thrombocytopenia D69.6
[2023-01-31 07:08] LABS: Albumin Level 3.3 gm/dl (3.4-5.0); BUN Creatinine Ratio 26.9 (10-20); Bilirubin Direct 0.1 mg/dl (0-0.2); Bilirubin,Total 0.5 mg/dl (0.2-1.0); Calcium 8.7 mg/dl (8.6-10.3); Est GFR (African American) 56.7 ml/min; Magnesium 2.2 mg/dl (1.7-2.4); Potassium 3.8 mmol/L (3.5-5.1); Total Protein 5.9 gm/dl (6.0-8.3)
[2023-01-31 07:14] LABS: Immunoglobulin A 139.5 mg/dl (70-400); Immunoglobulin G 646.1 mg/dl (635-1741)
--- NOTE | 2023-01-31 07:27 | XRay Report ---
XR chest 1V portable HISTORY: 87 years-old Female follow up pulmonary congestion/edema acute shortness of breath COMPARISON: 01/30/2023 TECHNIQUE: AP view of the chest FINDINGS: Cardiac silhouette is enlarged. Pulmonary vascular congestion. Bilateral airspace opacities with small pleural effusions. Interstitial coarsening. No pneumothorax. Degenerative changes of the shoulders and spine. IMPRESSION: 1. Cardiomegaly with intermixed interstitial and alveolar opacities again noted, mildly progressed wi thin the right upper lobe. Findings are suggestive of asymmetric pulmonary edema, however superimpose d pneumonia could appear similarly. 2. Small pleural effusions. ACT 112: Negative or not required by law. The above report was generated using voice recognition software. It may contain grammatical, syntax o r spelling errors. Electronically signed by: Karlo Ocampo M.D. 01/31/2023 7:25 AM
[2023-01-31 07:52] LABS: Hematocrit (blood only) 31.2 % (37.0-47.0); Hemoglobin 11.1 g/dl (12.0-16.0); Mean Corpuscular Hemoglobin 30.7 pg (25.0-34.0); Mean Corpuscular Hgb Conc 35.6 g/dL (32.0-36.0); Mean Corpuscular Volume 86.2 fL (80.0-100.0); Mean Platelet Volume 13.8 fL (9.4-12.4); Platelet Count 20 K/uL (130-400); RDW Coefficient of Variation 12.4 % (11.5-14.5); Red Blood Count 3.62 M/uL (4.20-5.40); White Blood Count 5.19 K/ul (4.8-10.8)
[2023-01-31 08:00] LABS: Basophils # (auto) 0.02 K/uL (0-0.2); Basophils % (auto) 0.4 %; Immature Granulocytes # (auto) 0.01 K/uL (0.01-0.20); Immature Granulocytes % (auto) 0.2 %; Lymphocytes # (auto) 2.19 K/uL (1.2-3.4); Lymphocytes % (auto) 42.2 %; Monocytes # (auto) 0.15 K/uL (0.11-0.59); Monocytes % (auto) 2.9 %; Neutrophils # (auto) 2.82 K/uL (1.40-6.50); Neutrophils % (auto) 54.3 %; Polychromasia 1+; Reticulocytes # 0.04 10^6/uL (0.02-0.10)
[2023-01-31] MEDS ORDERED: POTASSIUM CHLORIDE 20 MEQ/15 ML UDC PO STA (08:12)
[2023-01-31] MEDS ORDERED: FUROSEMIDE 40 MG/4 ML VIAL IV ONE ×2 (08:12→11:43)
--- NOTE | 2023-01-31 08:12 | Hospitalist Progress Note ---
Date of Service January 31, 2023 Assessment & Plan (1) Acute febrile illness: Plan: Fever, chills, weakness. Suspect anaplasmosis versus UTI. Acute, unstable * CT head negative * Acute care visit 2 days ago ?uti --> keflex with no improvement * No leukocytosis, patient is neutropenic. * Hemoglobin 11.8, baseline around 12, MCV 88 * Platelet count 93 --> 3 x 2 and has gotten 2u platelets, repeat plt 20. Heme/onc on consult for pancytopenia as below * --> unit of platelets this morning ordered. monitor repeat cbc. 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 Distal esophageal wall thickening suspicious for esophagitis. Trace pleural effusions/trace abdominal pelvic ascites. No evidence of obstruction/wall thickening/free air --> PPI BID Procal 0.67 Urine cx no growth (prior abx prior to admission w/ keflex Last temp 38.1C yesterday Continue Doxy/Ceftriaxone IV for now -- monitor Babesia PCR, Anaplasmosis PCR pending -- monitor in f/u Blood cultures remain NGTD PT/OT consults DVT proph: SCDs, no chemoproph given low platelets. no bleeding at present. 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 abx as outlined above s/p 2u platelets w/ repeat cbc w/ plt 20 Heme/onc consulted for pancytopenia and discussed with them last night -- started decadron Planning 40mg x 4 day course Additional labs sent by Dr Perez for eval, peripheral smear (3) Hypoxia: Plan: s/p 1L in ER for poor PO intake on admission and was on 4L NC AM 01/30 and then had to be increased to 7-->15L oxymask. Ativan provided for anxiety, dose of lasix 20mg IV x 1 which was repeated given pulmonary edema on imaging and stabilized back to 6-7L and additional dose of lasix 40mg IV x 1 last evening (01/30) CTA chest for PE NEGATIVE (however noting not best imaging) Currently on 4L NC, 94 Repeat CXR with continued congestion vs superimposed pneumonia could appear similarly Of note, did get her potassium replacement on labs last evening w/ 4 bags IV. If able to take PO would prefer such Lasix 40mg IV x 1 and continue incentive spirometer. Providing ORAL KCL to prevent excess volume. May require additional dosing of lasix on steroids Supplemental O2 to maintain sats Repeat CXR in AM Incentive spirometer (4) Gastritis: Plan: Gastritis/Reflux -- gastritis noted on imaging on admission - chronic reflux symptoms at home reported/belching per patient/daughter at bedside - ordered Protonix qam 01/30 and increased to BID given steroid use Reporting IMPROVEMENT in appetite/no early satiety or getting anything stuck. 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 Consider outpt f/u (5) Elevated troponin: Plan: Elevated troponin, acute Suspect demand, no acute ischemic change on EKG Echo without WMA. 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 Had been >60 years -Hold Lexapro for hyponatremia -- monitor (9) Hyponatremia: Plan: Acute, history of prior episodes ? Low solute versus SIADH, ?SSRI use Urine studies w/ Na125. Fluid restriction 1500ml daily, BNP elevated to 220 (ECHO w/o signiciant valvular dysfunction however) Additional lasix yesterday (20+20+40mg IV provided)--> Na improved to 134 on AM labs Additional lasix IV x 1 this morning and repeat dose as needed Plan continued inpatient stay continue abx, decadron monitor CBC/BMP/LFTs in AM F/u labs heme/onc ordered monitor pancytopenia CXR in AM/additional lasix as needed PT/OT consults Admission and Anticipated Discharge Date Admission Date: January 29, 2023 Supervising Physician Co-Signing Physician Notes The patient was not seen by me. The chart was reviewed. Case discussed with HARSH Bland. Agree with assessment and plan Subjective eval this morning doing much better than yesterday on 4L NC, SOB w walking but much improved at rest, no distress, no wheezing. s tates she did a LOT of peeing yesterday w/ all the lasix. CXR w/ continued congestion and discussed repeat lasix for today and continued monitoring. Labs pending for tick bourne but discussed suspicion for such given improvement w/ abx. Platelets improved. Daughter at bedside, reports eating also improved. Given a snickers as she is hungry. Discussed eval w/ speech to ensure no aspirations occuring. Actually ate all her breakfast and supper last night without issues since protonix use and discussed continued use at least once daily but twice daily minimum while on steroids per hematology. NO further fevers since yesterday. Questions/concerns addressed at this time. Physical Exam Physical Exam: General: WD/WN elderly female resting in bed, appearing improved from yesterday afternoon, no tachypnea, able to talk in complete sentences, daughter at bedside HEENT: head normocephalic, atraumatic, mmm, trace JVD Resp: diminished in the bases, resolution of wheezing, on 4L NC CV: regular rate/rhythm, + systolic murmur, trace pedal edema, calves nontender, no cough GI: +BS, soft/NT : no royal MSK/Neuro: no focal deficits, no slurred speech Skin: no bullseye rash, skin perfused Results & Data Results & Data Vital Signs (Past 12 Hours) Vital Signs Temp Pulse Pulse Resp BP Pulse Ox O2 Del Method 01/31/23 07:50 36.5 C 53 L 20 145/61 H 96 Nasal Cannula 01/31/23 03:13 36.5 C 55 L 18 127/64 97 Room Air 01/30/23 22:28 53 L 01/30/23 23:22 36.7 C 54 L 18 129/62 95 Room Air 01/30/23 20:42 36.7 C O2 Flow Rate 01/31/23 07:50 4 01/31/23 03:13 01/30/23 22:28 01/30/23 23:22 01/30/23 20:42 Laboratory Results 01/31/23 01/31/23 01/31/23 Range/Units 06:30 06:30 06:30 WBC (4.8-10.8) K/ul RBC (4.20-5.40) M/uL Hgb (12.0-16.0) g/dl Hct (37.0-47.0) % MCV (80.0-100.0) fL MCH (25.0-34.0) pg MCHC (32.0-36.0) g/dL RDW Std Deviation (36.4-46.3) fL RDW Coeff of Yuval (11.5-14.5) % Plt Count (130-400) K/uL MPV (9.4-12.4) fL Immature Gran % (Auto) % Neut % (Auto) % Lymph % (Auto) % Rains % (Auto) % Eos % (Auto) % Baso % (Auto) % Reticulocyte % (Auto) (0.5-2.0) % Neut # (Auto) (1.40-6.50) K/uL Lymph # (Auto) (1.2-3.4) K/uL Rains # (Auto) (0.11-0.59) K/uL Eos # (Auto) (0-0.50) K/uL Baso # (Auto) (0-0.2) K/uL Reticulocyte # (0.02-0.10) 10^6/uL Immature Gran # (Auto) (0.01-0.20) K/uL Platelet Estimate (Normal) Polychromasia Peripher Smr Path Cons ABG pH (7.35-7.45) ABG pCO2 (35-46) mmHg ABG pO2 (80-95) mmHg ABG HCO3 (19-24) mmol/L ABG O2 Saturation (90-95) % ABG Base Excess (-9-1.8) mEq/L Jt Test (Pos) Oxygen Given Sodium (136-145) mmol/L Potassium (3.5-5.1) mmol/L Chloride (98-107) mmol/L Carbon Dioxide (21-32) mmol/L Anion Gap (3-11) BUN (6-23) mg/dl Creatinine (0.6-1.2) mg/dl Est Cr Clr Drug Dosing ml/min Est GFR ( Amer) ml/min Est GFR (Non-Af Amer) ml/min BUN/Creatinine Ratio (10-20) Glucose (70-99(Fasting)) mg/dl POC Glucose (70-99) mg/dl Calcium (8.6-10.3) mg/dl Magnesium (1.7-2.4) mg/dl Total Bilirubin (0.2-1.0) mg/dl Direct Bilirubin (0-0.2) mg/dl AST (13-39) U/L ALT (7-52) U/L Alkaline Phosphatase (34-104) U/L Lactate Dehydrogenase (86-244) U/L Troponin I High Sens (0-14) pg/ml B-Natriuretic Peptide (0-100) pg/ml Total Protein (6.0-8.3) gm/dl Albumin (3.4-5.0) gm/dl Vitamin B12 Folate IgG 646.1 (635-1741) mg/dl IgA 139.5 (70-400) mg/dl IgM 149.0 (45-281) mg/dl Hepatitis C Ab (EIA) Pending Hep C Ab Signal/Cutoff Pending HIV (1&2) Ag & Ab Conf Pending Blood Type Antibody Screen 01/31/23 01/31/23 01/31/23 Range/Units 06:30 06:30 06:30 WBC (4.8-10.8) K/ul RBC (4.20-5.40) M/uL Hgb (12.0-16.0) g/dl Hct (37.0-47.0) % MCV (80.0-100.0) fL MCH (25.0-34.0) pg MCHC (32.0-36.0) g/dL RDW Std Deviation (36.4-46.3) fL RDW Coeff of Yuval (11.5-14.5) % Plt Count (130-400) K/uL MPV (9.4-12.4) fL Immature Gran % (Auto) % Neut % (Auto) % Lymph % (Auto) % Rains % (Auto) % Eos % (Auto) % Baso % (Auto) % Reticulocyte % (Auto) (0.5-2.0) % Neut # (Auto) (1.40-6.50) K/uL Lymph # (Auto) (1.2-3.4) K/uL Rains # (Auto) (0.11-0.59) K/uL Eos # (Auto) (0-0.50) K/uL Baso # (Auto) (0-0.2) K/uL Reticulocyte # (0.02-0.10) 10^6/uL Immature Gran # (Auto) (0.01-0.20) K/uL Platelet Estimate (Normal) Polychromasia Peripher Smr Path Cons ABG pH (7.35-7.45) ABG pCO2 (35-46) mmHg ABG pO2 (80-95) mmHg ABG HCO3 (19-24) mmol/L ABG O2 Saturation (90-95) % ABG Base Excess (-9-1.8) mEq/L Jt Test (Pos) Oxygen Given Sodium 134 L (136-145) mmol/L Potassium 3.8 D (3.5-5.1) mmol/L Chloride 97 L (98-107) mmol/L Carbon Dioxide 28 (21-32) mmol/L Anion Gap 9 (3-11) BUN 28 H (6-23) mg/dl Creatinine 1.04 (0.6-1.2) mg/dl Est Cr Clr Drug Dosing 37.0 ml/min Est GFR ( Amer) 56.7 ml/min Est GFR (Non-Af Amer) 49.0 ml/min BUN/Creatinine Ratio 26.9 H (10-20) Glucose 142 H (70-99(Fasting)) mg/dl POC Glucose (70-99) mg/dl Calcium 8.7 (8.6-10.3) mg/dl Magnesium 2.2 (1.7-2.4) mg/dl Total Bilirubin 0.5 (0.2-1.0) mg/dl Direct Bilirubin 0.1 (0-0.2) mg/dl AST 61 H (13-39) U/L ALT 46 (7-52) U/L Alkaline Phosphatase 96 (34-104) U/L Lactate Dehydrogenase 395 H (86-244) U/L Troponin I High Sens (0-14) pg/ml B-Natriuretic Peptide (0-100) pg/ml Total Protein 5.9 L (6.0-8.3) gm/dl Albumin 3.3 L (3.4-5.0) gm/dl Vitamin B12 Pending Folate Pending IgG (635-1741) mg/dl IgA (70-400) mg/dl IgM (45-281) mg/dl Hepatitis C Ab (EIA) Hep C Ab Signal/Cutoff HIV (1&2) Ag & Ab Conf Blood Type Antibody Screen 01/31/23 01/30/23 01/30/23 Range/Units 06:30 23:24 23:24 WBC 5.19 (4.8-10.8) K/ul RBC 3.62 L (4.20-5.40) M/uL Hgb 11.1 L (12.0-16.0) g/dl Hct 31.2 L (37.0-47.0) % MCV 86.2 (80.0-100.0) fL MCH 30.7 (25.0-34.0) pg MCHC 35.6 (32.0-36.0) g/dL RDW Std Deviation 39.0 (36.4-46.3) fL RDW Coeff of Yuval 12.4 (11.5-14.5) % Plt Count 20 L* (130-400) K/uL MPV 13.8 H (9.4-12.4) fL Immature Gran % (Auto) 0.2 % Neut % (Auto) 54.3 % Lymph % (Auto) 42.2 % Rains % (Auto) 2.9 % Eos % (Auto) 0.0 % Baso % (Auto) 0.4 % Reticulocyte % (Auto) 1.0 (0.5-2.0) % Neut # (Auto) 2.82 (1.40-6.50) K/uL Lymph # (Auto) 2.19 (1.2-3.4) K/uL Rains # (Auto) 0.15 (0.11-0.59) K/uL Eos # (Auto) 0.00 (0-0.50) K/uL Baso # (Auto) 0.02 (0-0.2) K/uL Reticulocyte # 0.04 (0.02-0.10) 10^6/uL Immature Gran # (Auto) 0.01 (0.01-0.20) K/uL Platelet Estimate (Normal) Polychromasia 1+ Peripher Smr Path Cons Pending ABG pH (7.35-7.45) ABG pCO2 (35-46) mmHg ABG pO2 (80-95) mmHg ABG HCO3 (19-24) mmol/L ABG O2 Saturation (90-95) % ABG Base Excess (-9-1.8) mEq/L Jt Test (Pos) Oxygen Given Sodium 132 L (136-145) mmol/L Potassium 3.0 L D (3.5-5.1) mmol/L Chloride 95 L (98-107) mmol/L Carbon Dioxide 28 (21-32) mmol/L Anion Gap 9 (3-11) BUN 25 H (6-23) mg/dl Creatinine 1.09 (0.6-1.2) mg/dl Est Cr Clr Drug Dosing 35.3 ml/min Est GFR ( Amer) 53.6 ml/min Est GFR (Non-Af Amer) 46.3 ml/min BUN/Creatinine Ratio 22.9 H (10-20) Glucose 180 H (70-99(Fasting)) mg/dl POC Glucose (70-99) mg/dl Calcium 8.5 L (8.6-10.3) mg/dl Magnesium 2.3 (1.7-2.4) mg/dl Total Bilirubin (0.2-1.0) mg/dl Direct Bilirubin (0-0.2) mg/dl AST (13-39) U/L ALT (7-52) U/L Alkaline Phosphatase (34-104) U/L Lactate Dehydrogenase (86-244) U/L Troponin I High Sens (0-14) pg/ml B-Natriuretic Peptide 220 H (0-100) pg/ml Total Protein (6.0-8.3) gm/dl Albumin (3.4-5.0) gm/dl Vitamin B12 Folate IgG (635-1741) mg/dl IgA (70-400) mg/dl IgM (45-281) mg/dl Hepatitis C Ab (EIA) Hep C Ab Signal/Cutoff HIV (1&2) Ag & Ab Conf Blood Type Antibody Screen 01/30/23 01/30/23 01/30/23 Range/Units 23:24 22:12 15:24 WBC 3.72 L (4.8-10.8) K/ul RBC 3.50 L (4.20-5.40) M/uL Hgb 10.8 L (12.0-16.0) g/dl Hct 30.4 L (37.0-47.0) % MCV 86.9 (80.0-100.0) fL MCH 30.9 (25.0-34.0) pg MCHC 35.5 (32.0-36.0) g/dL RDW Std Deviation 39.5 (36.4-46.3) fL RDW Coeff of Yuval 12.4 (11.5-14.5) % Plt Count 19 L* D (130-400) K/uL MPV 13.2 H (9.4-12.4) fL Immature Gran % (Auto) % Neut % (Auto) % Lymph % (Auto) % Rains % (Auto) % Eos % (Auto) % Baso % (Auto) % Reticulocyte % (Auto) (0.5-2.0) % Neut # (Auto) (1.40-6.50) K/uL Lymph # (Auto) (1.2-3.4) K/uL Rains # (Auto) (0.11-0.59) K/uL Eos # (Auto) (0-0.50) K/uL Baso # (Auto) (0-0.2) K/uL Reticulocyte # (0.02-0.10) 10^6/uL Immature Gran # (Auto) (0.01-0.20) K/uL Platelet Estimate Signific. Decreased L (Normal) Polychromasia Peripher Smr Path Cons ABG pH 7.50 H (7.35-7.45) ABG pCO2 32 L (35-46) mmHg ABG pO2 76 L (80-95) mmHg ABG HCO3 25 H (19-24) mmol/L ABG O2 Saturation 97.9 H (90-95) % ABG Base Excess 2.4 H (-9-1.8) mEq/L Jt Test POS (Pos) Oxygen Given FLOW RATE 4 Sodium (136-145) mmol/L Potassium (3.5-5.1) mmol/L Chloride (98-107) mmol/L Carbon Dioxide (21-32) mmol/L Anion Gap (3-11) BUN (6-23) mg/dl Creatinine (0.6-1.2) mg/dl Est Cr Clr Drug Dosing ml/min Est GFR ( Amer) ml/min Est GFR (Non-Af Amer) ml/min BUN/Creatinine Ratio (10-20) Glucose (70-99(Fasting)) mg/dl POC Glucose 221 H (70-99) mg/dl Calcium (8.6-10.3) mg/dl Magnesium (1.7-2.4) mg/dl Total Bilirubin (0.2-1.0) mg/dl Direct Bilirubin (0-0.2) mg/dl AST (13-39) U/L ALT (7-52) U/L Alkaline Phosphatase (34-104) U/L Lactate Dehydrogenase (86-244) U/L Troponin I High Sens (0-14) pg/ml B-Natriuretic Peptide (0-100) pg/ml Total Protein (6.0-8.3) gm/dl Albumin (3.4-5.0) gm/dl Vitamin B12 Folate IgG (635-1741) mg/dl IgA (70-400) mg/dl IgM (45-281) mg/dl Hepatitis C Ab (EIA) Hep C Ab Signal/Cutoff HIV (1&2) Ag & Ab Conf Blood Type Antibody Screen 01/30/23 01/30/23 01/30/23 Range/Units 15:12 15:12 08:29 WBC 7.10 (4.8-10.8) K/ul RBC 3.75 L (4.20-5.40) M/uL Hgb 12.5 (12.0-16.0) g/dl Hct 34.1 L (37.0-47.0) % MCV 90.9 (80.0-100.0) fL MCH 33.3 (25.0-34.0) pg MCHC 36.7 H (32.0-36.0) g/dL RDW Std Deviation 40.0 (36.4-46.3) fL RDW Coeff of Yuval 13.0 (11.5-14.5) % Plt Count 11 L* D (130-400) K/uL MPV (9.4-12.4) fL Immature Gran % (Auto) % Neut % (Auto) % Lymph % (Auto) % Rains % (Auto) % Eos % (Auto) % Baso % (Auto) % Reticulocyte % (Auto) (0.5-2.0) % Neut # (Auto) (1.40-6.50) K/uL Lymph # (Auto) (1.2-3.4) K/uL Rains # (Auto) (0.11-0.59) K/uL Eos # (Auto) (0-0.50) K/uL Baso # (Auto) (0-0.2) K/uL Reticulocyte # (0.02-0.10) 10^6/uL Immature Gran # (Auto) (0.01-0.20) K/uL Platelet Estimate (Normal) Polychromasia Peripher Smr Path Cons ABG pH (7.35-7.45) ABG pCO2 (35-46) mmHg ABG pO2 (80-95) mmHg ABG HCO3 (19-24) mmol/L ABG O2 Saturation (90-95) % ABG Base Excess (-9-1.8) mEq/L Jt Test (Pos) Oxygen Given Sodium 131 L (136-145) mmol/L Potassium 3.9 (3.5-5.1) mmol/L Chloride 97 L (98-107) mmol/L Carbon Dioxide 23 (21-32) mmol/L Anion Gap 11 (3-11) BUN 22 (6-23) mg/dl Creatinine 1.04 D (0.6-1.2) mg/dl Est Cr Clr Drug Dosing 37.0 ml/min Est GFR ( Amer) 56.7 ml/min Est GFR (Non-Af Amer) 49.0 ml/min BUN/Creatinine Ratio 21.2 H (10-20) Glucose 153 H (70-99(Fasting)) mg/dl POC Glucose (70-99) mg/dl Calcium 8.7 (8.6-10.3) mg/dl Magnesium 1.6 L (1.7-2.4) mg/dl Total Bilirubin (0.2-1.0) mg/dl Direct Bilirubin (0-0.2) mg/dl AST (13-39) U/L ALT (7-52) U/L Alkaline Phosphatase (34-104) U/L Lactate Dehydrogenase (86-244) U/L Troponin I High Sens 21.4 H (0-14) pg/ml B-Natriuretic Peptide (0-100) pg/ml Total Protein (6.0-8.3) gm/dl Albumin (3.4-5.0) gm/dl Vitamin B12 Folate IgG (635-1741) mg/dl IgA (70-400) mg/dl IgM (45-281) mg/dl Hepatitis C Ab (EIA) Hep C Ab Signal/Cutoff HIV (1&2) Ag & Ab Conf Blood Type Antibody Screen 01/30/23 Range/Units 03:15 WBC (4.8-10.8) K/ul RBC (4.20-5.40) M/uL Hgb (12.0-16.0) g/dl Hct (37.0-47.0) % MCV (80.0-100.0) fL MCH (25.0-34.0) pg MCHC (32.0-36.0) g/dL RDW Std Deviation (36.4-46.3) fL RDW Coeff of Yuval (11.5-14.5) % Plt Count (130-400) K/uL MPV (9.4-12.4) fL Immature Gran % (Auto) % Neut % (Auto) % Lymph % (Auto) % Rains % (Auto) % Eos % (Auto) % Baso % (Auto) % Reticulocyte % (Auto) (0.5-2.0) % Neut # (Auto) (1.40-6.50) K/uL Lymph # (Auto) (1.2-3.4) K/uL Rains # (Auto) (0.11-0.59) K/uL Eos # (Auto) (0-0.50) K/uL Baso # (Auto) (0-0.2) K/uL Reticulocyte # (0.02-0.10) 10^6/uL Immature Gran # (Auto) (0.01-0.20) K/uL Platelet Estimate (Normal) Polychromasia Peripher Smr Path Cons ABG pH (7.35-7.45) ABG pCO2 (35-46) mmHg ABG pO2 (80-95) mmHg ABG HCO3 (19-24) mmol/L ABG O2 Saturation (90-95) % ABG Base Excess (-9-1.8) mEq/L Jt Test (Pos) Oxygen Given Sodium (136-145) mmol/L Potassium (3.5-5.1) mmol/L Chloride (98-107) mmol/L Carbon Dioxide (21-32) mmol/L Anion Gap (3-11) BUN (6-23) mg/dl Creatinine (0.6-1.2) mg/dl Est Cr Clr Drug Dosing ml/min Est GFR ( Amer) ml/min Est GFR (Non-Af Amer) ml/min BUN/Creatinine Ratio (10-20) Glucose (70-99(Fasting)) mg/dl POC Glucose (70-99) mg/dl Calcium (8.6-10.3) mg/dl Magnesium (1.7-2.4) mg/dl Total Bilirubin (0.2-1.0) mg/dl Direct Bilirubin (0-0.2) mg/dl AST (13-39) U/L ALT (7-52) U/L Alkaline Phosphatase (34-104) U/L Lactate Dehydrogenase (86-244) U/L Troponin I High Sens (0-14) pg/ml B-Natriuretic Peptide (0-100) pg/ml Total Protein (6.0-8.3) gm/dl Albumin (3.4-5.0) gm/dl Vitamin B12 Folate IgG (635-1741) mg/dl IgA (70-400) mg/dl IgM (45-281) mg/dl Hepatitis C Ab (EIA) Hep C Ab Signal/Cutoff HIV (1&2) Ag & Ab Conf Blood Type B Positive Antibody Screen NEGATIVE Diagnostic Findings Chest CTA 01/30/23 15:14 CT ANGIOGRAM OF THE CHEST CLINICAL HISTORY: Dyspnea COMPARISON STUDY: Chest x-ray dated 01/30/2023. Abdominal CT dated 01/29/2023. TECHNIQUE: Following the IV administration of 111 cc of Optiray 320, CT angiogram of the chest was performed from the upper abdomen to the thoracic inlet utilizing the pulmonary embolus protocol. Images are reviewed in the axial, sagittal, and coronal planes. 3-D MIPS images are created and assessed. I V contrast was administered without complication. A dose lowering technique was utilized adhering to the principles of ALARA. The examination is significantly degraded by motion artifact. CT DOSE: 571.18 mGy.cm FINDINGS: Thyroid: Mildly enlarged and heterogeneous. Thoracic aorta: There is atherosclerotic calcification of the thoracic aorta, which is normal in caliber and demonstrates standard 3-vessel arch anatomy. No dissection is seen. Pulmonary vasculature: The pulmonary trunk is normal in caliber. There are no filling defects identified in main or lobar pulmonary branches to suggest pulmonary embolus. The segmental and subsegmental branches cannot be evaluated due to motion artifact. Heart: The heart is enlarged and without pericardial effusion. There are coronary artery calcifications. Lungs and pleural spaces: Evaluation of the lung parenchyma is compromised by motion artifact. There are small pleural effusions with dependent consolidation. Intralobular septal thickening is noted. Bilateral airspace opacities are seen throughout both lungs. The trachea and central airways appear clear. Mediastinum: Mildly enlarged mediastinal nodes measure up to 11 mm short axis. Carol Ann: Mildly enlarged hilar nodes measure up to 10 mm in short axis. Axillae: There is no axillary lymphadenopathy. Upper abdomen: A small hiatal hernia is noted. Partially visualized upper abdominal viscera is otherwise grossly unremarkable. Skeletal structures: The skeletal structures are osteopenic. Degenerative change and hyperkyphosis is noted throughout the thoracic spine. A hemangioma is noted in the body of T12. No lytic or blastic bony lesions are seen. Arthritic change is noted in the shoulders. IMPRESSION: 1. Significantly motion compromised examination. 2. There is no evidence of central pulmonary embolus in the main or lobar pulmonary arteries. The segmental and subsegmental branches cannot be evaluated due to motion artifact. 3. Cardiomegaly with evidence of congestive failure. 4. Multifocal bilateral airspace opacities likely represent pulmonary edema. Correlate clinically for evidence of a superimposed infectious/inflammatory pneumonitis. Radiographic follow up resolution is recommended. 5. Small pleural effusions with dependent consolidation. 6. Additional findings as above. ACT 112: Negative or not required by law. Electronically signed by: Rudolph Diaz M.D. 01/30/2023 4:31 PM Chest X-Ray 01/31/23 06:00 XR chest 1V portable HISTORY: 87 years-old Female follow up pulmonary congestion/edema acute shortness of breath COMPARISON: 01/30/2023 TECHNIQUE: AP view of the chest FINDINGS: Cardiac silhouette is enlarged. Pulmonary vascular congestion. Bilateral airspace opacities with small pleural effusions. Interstitial coarsening. No pneumothorax. Degenerative changes of the shoulders and spine. IMPRESSION: 1. Cardiomegaly with intermixed interstitial and alveolar opacities again noted, mildly progressed within the right upper lobe. Findings are suggestive of asymmetric pulmonary edema, however superimposed pneumonia could appear similarly. 2. Small pleural effusions. ACT 112: Negative or not required by law. The above report was generated using voice recognition software. It may contain grammatical, syntax or spelling errors. Electronically signed by: Karlo Ocampo M.D. 01/31/2023 7:25 AM PG Care Time/CCT Total # of Minutes Spent Total Time Spent with Patient: Total time spent is greater than 50% in coordination of care (as documented) at patient's floor/unit and/or counseling patient: Coding Level of Care Code 53319 SUB INP/OBS CARE 3/50MIN Diagnoses Acute febrile illness R50.9 Immune thrombocytopenia D69.3 Hypoxia R09.02 Gastritis K29.70 Elevated troponin R77.8 Fever R50.9 Hypertension I10 Hypertension type: unspecified Anxiety F41.9 Hyponatremia E87.1 (7) Hypertension Hypertension type: unspecified Qualified Code(s): I10 - Essential (primary) hypertension
[2023-01-31 08:13] LABS: Vitamin B12 898 pg/ml (180-914)
[2023-01-31] MEDS: hydrALAZINE HCL 25 MG TAB PO SCH ×3 (09:29→21:24)
[2023-01-31] MEDS: PANTOprazole 40 MG TAB PO SCH ×2 (09:29→21:25)
[2023-01-31] MEDS: amLODIPine BESYLATE 5 MG TAB PO SCH (09:29)
[2023-01-31] MEDS: dilTIAZem HCL 240 MG CAPCR PO SCH (09:30)
[2023-01-31] MEDS: dexAMETHasone 4 MG TAB PO SCH (09:30)
[2023-01-31] MEDS: carvediloL 12.5 MG TAB PO SCH ×2 (09:31→21:24)
[2023-01-31] MEDS: DOXYCYCLINE HYCLATE 100 MG in DEXTROSE 5% 100 ML IV SCH ×2 (11:24→21:25)
[2023-01-31] MEDS: cefTRIAXone SODIUM 2,000 MG in DEXTROSE 5% 50 ML IV SCH (14:23)
[2023-01-31] MEDS: LOSARTAN POTASSIUM 50 MG TAB PO SCH (21:24)
[2023-01-31] MEDS: LORazepam 0.5 MG TAB PO PRN (21:32)
[2023-02-01 07:40] LABS: BUN Creatinine Ratio 34.1 (10-20); Bilirubin Direct 0.1 mg/dl (0-0.2); Bilirubin,Total 0.4 mg/dl (0.2-1.0); Calcium 8.8 mg/dl (8.6-10.3); Creatinine Clr Calc Pharmacy 28.5 ml/min; Est GFR (African American) 41.4 ml/min; Est GFR (Non-African American) 35.7 ml/min; Potassium 3.9 mmol/L (3.5-5.1); Total Protein 5.4 gm/dl (6.0-8.3)
--- NOTE | 2023-02-01 07:52 | Hospitalist Progress Note ---
Date of Service February 01, 2023 Assessment & Plan (1) Acute febrile illness: Plan: Fever, chills, weakness. Suspect anaplasmosis versus UTI. Acute, unstable * CT head negative * Acute care visit 2 days ago ?uti --> keflex with no improvement * No leukocytosis, patient is neutropenic. 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 was given 1L IVF (hypoxic/volume overloaded on repeat CXR, lasix as below) * Hemoglobin 11.8, baseline around 12, MCV 88 * Platelet count 93 --> 3 x 2 and has gotten 2u platelets, repeat plt 20, now 17. Heme/onc on consult for pancytopenia * --> Decadron 40mg daily. Plt 17 and recs for IVIG for today * Positive Lyme IgG 12/22 with 1IgM band reactive on block, 2IgG bands reactive on blot at that time CTAP w/ appendix poorly visualized, moderate fecal retention, suspected cystitis. Distal esophageal wall thickening suspicious for esophagitis. Trace pleural effusions/trace abdominal pelvic ascites. No evidence of obstruction/wall thickening/free air --> PPI BID. Patient w/ reflux/poor PO intake at home. Has been stable and excellent since PPI BID and would continue BID at discharge Procal 0.67 Urine cx no growth Blood cultures NGTD after 48 hours Last temp afternoon 01/30 38.1C Continues on Doxy/Ceftriaxone Babesia PCR, Anaplasmosis PCR pending -- monitor in f/u Lasix 60mg IV BID per supervising provider as below for continued hypoxia/pulmonary edema, worsening on CXR but stable O2 requirements. PO KCL BID and repeat labs for tonight. Possible edema from high dose steroids. Kidney function slight bump but good output. Slight orange color from bowel regimen but no darkend urine reported. Giving IVIG 1g/kg for today per Dr Perez given plt 17. Continue decadron 40mg daily Discussed w/ pulm, rec biofire. CT reviewed possible mixed pna/chf picture. Should be covered w/ abx ordered. Will check MRSA nasal PT/OT consults -- recs rehab for patient. Encouraged. Will be inpatient through weekend DVT proph: SCDs, no chemoproph given low platelets. no bleeding at present. No hx ITP or purpura on exam (2) Hypoxia: Plan: On admission and was on2L - 3--> 4L by AM 01/30 . breathing was stable but with wheezing/low magnesium s/p 1L in ER for poor PO intake In afternoon 01/30, then had to be increased to 7-->15L oxymask. Increased respiratory distress/rales on exam. CXR w congestion. BNP 220. Echo w/ mild MR, RVSP elevated 30-40mmhg. IVC mildly dilated day prior Multiple doses IV lasix on 01/30 for total 80mg IV an given additional 40mg IV AM 01/31 CXR w/ worsened edema, remains on 3-4L NC, breathing stable on exam Suspect high dose decadron contributing to fluid retention/edema as well Per supervising provider, lasix 60mg IV BID for now. Added PO KCL BID and will repeat labs this evening to see if any additional potassium supplementation will be required Discussed purewick for patient overnight to prevent having to get up to urinate. 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 abx as outlined above s/p 2u platelets w/ repeat cbc w/ plt 20 Heme/onc consulted for pancytopenia and discussed with them last night -- started decadron, planning 4 day course (day 3 today) IVIG per Dr Perez, peripheral smear ordered Would not dc unless plt AT LEAST >30k Monitor CBC on repeat (4) Gastritis: Plan: Gastritis/Reflux -- gastritis noted on imaging on admission - chronic reflux symptoms at home reported/belching per patient/daughter at bedside - ordered Protonix qam 01/30 and increased to BID given steroid use Reporting continued IMPROVEMENT in appetite/no early satiety or getting anything stuck. Speech consulted for completeness but discussed continuing at least BID for now on steroids, once daily at d/c Aspiration precautions, HOB elevation. Continue current diet with thin liquids Would continue PPI BID at discharge. 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 outpt f/u (5) Elevated troponin: Plan: Elevated troponin, acute Suspect demand, no acute ischemic change on EKG Echo without WMA. Suspect demand ischemia from infection/volume overload (IVC dilation) Lasix as above for pulm edema, kidney function stable on such No chest pain reported, CTA chest negative for PE (6) Fever: Plan: improving as far as frequency/significant elevations. no further fevers monitor on abx/cx as above (7) Hypertension: Plan: HTN, chronic well-controlled BP stable, 124/62 Remains on amlodipine 10mg daily, diltiazem 240mg, hydralazine 25mg TID Olmesartan converted to losartan 100mg while inpatient --> will hold given bump in creatinine Will also hold further hydralazine while on high dose lasix IV BID Monitor Hyperlipidemia- Diet managed (8) Anxiety: Plan: Anxiety, chronic suboptimal control due to grief With loss of in the last year -- support provided. Had been >60 years -Hold Lexapro for hyponatremia -- monitor (9) Hyponatremia: Plan: Acute, history of prior episodes ? Low solute versus SIADH, ?SSRI use Urine studies w/ Na125. Fluid restriction 1500ml daily, BNP elevated to 220 (ECHO w/o signiciant valvular dysfunction however) Additional Lasix yesterday (20+20+40mg IV provided)--> Na improved to 134 on AM labs Additional Lasix IV x 1 01/31 Na 134 on am labs and will continue to monitor. SSRI remains on hold Plan continued inpatient stay IVIG, continue steroids IV lasix repeat labs this evening monitor labs on repeat/CXR PT/OT and likely need for rehab once stabilized Admission and Anticipated Discharge Date Admission Date: January 29, 2023 Supervising Physician Co-Signing Physician Notes The patient was not seen by me. The chart was reviewed. Case discussed with HARSH Bland. Agree with assessment and plan Subjective eval this afternoon, good appetite. eating all her meals which is new compared to what she does at home. No further fevers. breathing stable on 3L NC. Faint wheezing appreciated -- discussed IV lasix for diuresis. Getting IVIG this morning per discussion with Dr Perez. Nasal swab biofire per discussion w/ pulm but to continue current course otherwise. Discussed monitoring response to diuretics, continue steroids, monitoring platelets. likely to remain inpatient through the weekend. Strongly encouraging rehab. Physical Exam Physical Exam: General: WD/WN elderly female resting in bed, appearing improved from yesterday afternoon, no tachypnea, able to talk in complete sentences, daughter at bedside HEENT: head normocephalic, atraumatic, mmm, + JVD Resp: diminished in the bases, faint wheezing inspiratory/expiratory, no rales, on 3-4L NC SpO2 >93% CV: regular rate/rhythm, + systolic murmur, trace pedal edema, calves nontender, no cough GI: +BS, soft/NT : no royal MSK/Neuro: no focal deficits, no slurred speech Skin: no bullseye rash, skin perfused, no purpura Results & Data Results & Data Vital Signs (Past 12 Hours) Vital Signs Temp Pulse Pulse Resp BP Pulse Ox O2 Del Method 02/01/23 03:01 36.4 C L 68 18 134/84 93 Nasal Cannula 01/31/23 23:46 57 L 01/31/23 23:37 62 16 130/60 94 Nasal Cannula 01/31/23 23:29 36.5 C 61 18 118/43 L 92 Nasal Cannula 01/31/23 23:24 Nasal Cannula O2 Flow Rate 02/01/23 03:01 2 01/31/23 23:46 01/31/23 23:37 3 01/31/23 23:29 3 01/31/23 23:24 Laboratory Results 02/01/23 02/01/23 02/01/23 Range/Units 13:26 06:31 06:31 WBC 10.51 (4.8-10.8) K/ul RBC 3.25 L (4.20-5.40) M/uL Hgb 10.0 L (12.0-16.0) g/dl Hct 28.4 L (37.0-47.0) % MCV 87.4 (80.0-100.0) fL MCH 30.8 (25.0-34.0) pg MCHC 35.2 (32.0-36.0) g/dL RDW Std Deviation 41.1 (36.4-46.3) fL RDW Coeff of Yuval 13.0 (11.5-14.5) % Plt Count 17 L* (130-400) K/uL Immature Gran % (Auto) 0.6 % Neut % (Auto) 68.8 % Lymph % (Auto) 27.0 % Fleming % (Auto) 3.4 % Eos % (Auto) 0.0 % Baso % (Auto) 0.2 % Neut # (Auto) 7.23 H (1.40-6.50) K/uL Lymph # (Auto) 2.84 (1.2-3.4) K/uL Fleming # (Auto) 0.36 (0.11-0.59) K/uL Eos # (Auto) 0.00 (0-0.50) K/uL Baso # (Auto) 0.02 (0-0.2) K/uL Immature Gran # (Auto) 0.06 (0.01-0.20) K/uL RBC Agglutinates 2+ Sodium 134 L (136-145) mmol/L Potassium 3.9 (3.5-5.1) mmol/L Chloride 98 (98-107) mmol/L Carbon Dioxide 27 (21-32) mmol/L Anion Gap 9 (3-11) BUN 46 H (6-23) mg/dl Creatinine 1.35 H D (0.6-1.2) mg/dl Est Cr Clr Drug Dosing 28.5 ml/min Est GFR ( Amer) 41.4 ml/min Est GFR (Non-Af Amer) 35.7 ml/min BUN/Creatinine Ratio 34.1 H (10-20) Glucose 148 H (70-99(Fasting)) mg/dl Calcium 8.8 (8.6-10.3) mg/dl Magnesium 2.2 (1.7-2.4) mg/dl Total Bilirubin 0.4 (0.2-1.0) mg/dl Direct Bilirubin 0.1 (0-0.2) mg/dl AST 79 H (13-39) U/L ALT 58 H (7-52) U/L Alkaline Phosphatase 80 (34-104) U/L Total Protein 5.4 L (6.0-8.3) gm/dl Albumin 3.0 L (3.4-5.0) gm/dl Adenovirus (PCR) Not Detected (NotDetected) B. pertussis DNA (PCR) Not Detected (NotDetected) B.parapertussis DNA PCR Not Detected (NotDetected) C. pneumoniae DNA (PCR) Not Detected (NotDetected) Coronavirus OC43 (PCR) Not Detected (NotDetected) Coronavirus HKU1 (PCR) Not Detected (NotDetected) Coronavirus 229E (PCR) Not Detected (NotDetected) SARS-CoV-2 (PCR) Not Detected (NotDetected) Coronavirus NL63 (PCR) Not Detected (NotDetected) Hepatitis C Ab (EIA) (NON-REACTIVE) Hep C Ab Signal/Cutoff (<1.00) HIV (1&2) Ag & Ab Conf (NON-REACTIVE) Human Metapneumovir PCR Not Detected (NotDetected) Influenza Type A (PCR) Not Detected (NotDetected) Influenza Type B (PCR) Not Detected (NotDetected) M. pneumoniae (PCR) Not Detected (NotDetected) Parainfluenza 1 (PCR) Not Detected (NotDetected) Parainfluenza 2 (PCR) Not Detected (NotDetected) Parainfluenza 3 (PCR) Not Detected (NotDetected) Parainfluenza 4 (PCR) Not Detected (NotDetected) RSV (PCR) Not Detected (NotDetected) Entero/Rhino (PCR) Not Detected (NotDetected) 01/31/23 01/31/23 Range/Units 06:30 06:30 WBC (4.8-10.8) K/ul RBC (4.20-5.40) M/uL Hgb (12.0-16.0) g/dl Hct (37.0-47.0) % MCV (80.0-100.0) fL MCH (25.0-34.0) pg MCHC (32.0-36.0) g/dL RDW Std Deviation (36.4-46.3) fL RDW Coeff of Yuval (11.5-14.5) % Plt Count (130-400) K/uL Immature Gran % (Auto) % Neut % (Auto) % Lymph % (Auto) % Fleming % (Auto) % Eos % (Auto) % Baso % (Auto) % Neut # (Auto) (1.40-6.50) K/uL Lymph # (Auto) (1.2-3.4) K/uL Fleming # (Auto) (0.11-0.59) K/uL Eos # (Auto) (0-0.50) K/uL Baso # (Auto) (0-0.2) K/uL Immature Gran # (Auto) (0.01-0.20) K/uL RBC Agglutinates Sodium (136-145) mmol/L Potassium (3.5-5.1) mmol/L Chloride (98-107) mmol/L Carbon Dioxide (21-32) mmol/L Anion Gap (3-11) BUN (6-23) mg/dl Creatinine (0.6-1.2) mg/dl Est Cr Clr Drug Dosing ml/min Est GFR ( Amer) ml/min Est GFR (Non-Af Amer) ml/min BUN/Creatinine Ratio (10-20) Glucose (70-99(Fasting)) mg/dl Calcium (8.6-10.3) mg/dl Magnesium (1.7-2.4) mg/dl Total Bilirubin (0.2-1.0) mg/dl Direct Bilirubin (0-0.2) mg/dl AST (13-39) U/L ALT (7-52) U/L Alkaline Phosphatase (34-104) U/L Total Protein (6.0-8.3) gm/dl Albumin (3.4-5.0) gm/dl Adenovirus (PCR) (NotDetected) B. pertussis DNA (PCR) (NotDetected) B.parapertussis DNA PCR (NotDetected) C. pneumoniae DNA (PCR) (NotDetected) Coronavirus OC43 (PCR) (NotDetected) Coronavirus HKU1 (PCR) (NotDetected) Coronavirus 229E (PCR) (NotDetected) SARS-CoV-2 (PCR) (NotDetected) Coronavirus NL63 (PCR) (NotDetected) Hepatitis C Ab (EIA) NON-REACTIVE (NON-REACTIVE) Hep C Ab Signal/Cutoff 0.05 (<1.00) HIV (1&2) Ag & Ab Conf NON-REACTIVE (NON-REACTIVE) Human Metapneumovir PCR (NotDetected) Influenza Type A (PCR) (NotDetected) Influenza Type B (PCR) (NotDetected) M. pneumoniae (PCR) (NotDetected) Parainfluenza 1 (PCR) (NotDetected) Parainfluenza 2 (PCR) (NotDetected) Parainfluenza 3 (PCR) (NotDetected) Parainfluenza 4 (PCR) (NotDetected) RSV (PCR) (NotDetected) Entero/Rhino (PCR) (NotDetected) Diagnostic Findings Chest X-Ray 02/01/23 06:00 XR chest 2V PA/lateral CLINICAL HISTORY: follow up congestion COMPARISON STUDY: Chest CT January 30, 2023. Chest radiograph January 31, 2023. FINDINGS: Cardiomediastinal silhouette is stable. Small bilateral pleural effusions have mildly increased. There is no pneumothorax. Interstitial thickening and asymmetric right lung airspace opacities persist. IMPRESSION: 1. Persistent interstitial thickening consistent with pulmonary edema. Asymmetric right lung opacities likely reflect alveolar edema however superimposed pneumonia could appear similar. 2. Mild increase in size of small bilateral pleural effusions. ACT 112: Negative or not required by law. Electronically signed by: Andi Downs M.D. 02/01/2023 9:19 AM PG Care Time/CCT Total # of Minutes Spent Total Time Spent with Patient: Total time spent is greater than 50% in coordination of care (as documented) at patient's floor/unit and/or counseling patient: Coding Level of Care Code 43830 SUB INP/OBS CARE 3/50MIN Diagnoses Acute febrile illness R50.9 Hypoxia R09.02 Immune thrombocytopenia D69.3 Gastritis K29.70 Elevated troponin R77.8 Fever R50.9 Hypertension I10 Hypertension type: unspecified Anxiety F41.9 Hyponatremia E87.1 (7) Hypertension Hypertension type: unspecified Qualified Code(s): I10 - Essential (primary) hypertension
[2023-02-01 08:19] LABS: Magnesium 2.2 mg/dl (1.7-2.4)
[2023-02-01] MEDS: amLODIPine BESYLATE 5 MG TAB PO SCH (08:58)
[2023-02-01] MEDS: carvediloL 12.5 MG TAB PO SCH ×2 (08:58→20:26)
[2023-02-01] MEDS: dexAMETHasone 4 MG TAB PO SCH (08:59)
[2023-02-01] MEDS: DOXYCYCLINE HYCLATE 100 MG in DEXTROSE 5% 100 ML IV SCH ×2 (09:00→20:24)
[2023-02-01] MEDS: dilTIAZem HCL 240 MG CAPCR PO SCH (09:00)
[2023-02-01] MEDS: PANTOprazole 40 MG TAB PO SCH ×2 (09:00→20:25)
[2023-02-01] MEDS: hydrALAZINE HCL 25 MG TAB PO SCH ×2 (09:00→14:42)
[2023-02-01 09:05] LABS: Hematocrit (blood only) 28.4 % (37.0-47.0); Mean Corpuscular Hemoglobin 30.8 pg (25.0-34.0); Mean Corpuscular Hgb Conc 35.2 g/dL (32.0-36.0); Mean Corpuscular Volume 87.4 fL (80.0-100.0); Platelet Count 17 K/uL (130-400); RDW Standard Deviation 41.1 fL (36.4-46.3); Red Blood Count 3.25 M/uL (4.20-5.40); White Blood Count 10.51 K/ul (4.8-10.8)
[2023-02-01 09:06] LABS: Agglutinated RBC 2+; Basophils # (auto) 0.02 K/uL (0-0.2); Basophils % (auto) 0.2 %; Immature Granulocytes # (auto) 0.06 K/uL (0.01-0.20); Immature Granulocytes % (auto) 0.6 %; Lymphocytes # (auto) 2.84 K/uL (1.2-3.4); Monocytes # (auto) 0.36 K/uL (0.11-0.59); Monocytes % (auto) 3.4 %; Neutrophils # (auto) 7.23 K/uL (1.40-6.50); Neutrophils % (auto) 68.8 %
--- NOTE | 2023-02-01 09:20 | XRay Report ---
XR chest 2V PA/lateral CLINICAL HISTORY: follow up congestion COMPARISON STUDY: Chest CT January 30, 2023. Chest radiograph January 31, 2023. FINDINGS: Cardiomediastinal silhouette is stable. Small bilateral pleural effusions have mildly incre ased. There is no pneumothorax. Interstitial thickening and asymmetric right lung airspace opacities persist. IMPRESSION: 1. Persistent interstitial thickening consistent with pulmonary edema. Asymmetric right lung opacitie s likely reflect alveolar edema however superimposed pneumonia could appear similar. 2. Mild increase in size of small bilateral pleural effusions. ACT 112: Negative or not required by law. Electronically signed by: Andi Downs M.D. 02/01/2023 9:19 AM
[2023-02-01] MEDS ORDERED: IMMUNE GLOBULIN (HUMAN) SOLN IV ONE (09:24)
[2023-02-01] MEDS ORDERED: Octagam 10% IVIG 10 gram bottle IV SCH (10:00)
[2023-02-01] MEDS ORDERED: Octagam 10% IVIG 20 gram bottle IV SCH (11:00)
[2023-02-01] MEDS: Octagam 10% IVIG 20 gram bottle IV SCH ×2 (11:21→13:53)
[2023-02-01] MEDS ORDERED: Octagam 10% IVIG 30 gram bottle IV SCH (12:00)
[2023-02-01] MEDS: FUROSEMIDE 40 MG/4 ML VIAL IV SCH ×2 (13:45→23:42)
[2023-02-01] MEDS: POTASSIUM CHLORIDE 20 MEQ/15 ML UDC PO SCH ×2 (14:42→20:26)
[2023-02-01 14:44] LABS: Adenovirus PCR Not Detected (NotDetected); Bordetella parapertussis PCR Not Detected (NotDetected); Bordetella pertussis PCR Not Detected (NotDetected); Chlamydia pneumoniae PCR Not Detected (NotDetected); Coronavirus 229E PCR Not Detected (NotDetected); Coronavirus CoV-2 (COVID19)PCR Not Detected (NotDetected); Coronavirus HKU1 PCR Not Detected (NotDetected); Coronavirus NL63 PCR Not Detected (NotDetected); Coronavirus OC43PCR Not Detected (NotDetected); Human Metapneumovirus PCR Not Detected (NotDetected); Influenza A PCR Not Detected (NotDetected); Influenza B PCR Not Detected (NotDetected); Mycoplasma pneumoniae PCR Not Detected (NotDetected); Parainfluenza Virus 1 PCR Not Detected (NotDetected); Parainfluenza Virus 2 PCR Not Detected (NotDetected); Parainfluenza Virus 3 PCR Not Detected (NotDetected); Parainfluenza Virus 4 PCR Not Detected (NotDetected); Respiratory Syncytial VirusPCR Not Detected (NotDetected); Rhinovirus/Enterovirus PCR Not Detected (NotDetected)
[2023-02-01] MEDS: LORazepam 0.5 MG TAB PO PRN (20:25)
[2023-02-01 21:44] LABS: BUN Creatinine Ratio 32.3 (10-20); Calcium 8.1 mg/dl (8.6-10.3); Creatinine Clr Calc Pharmacy 23.5 ml/min; Est GFR (African American) 32.7 ml/min; Est GFR (Non-African American) 28.2 ml/min; Potassium 3.5 mmol/L (3.5-5.1)
[2023-02-02 04:17] LABS: Babesia microti DNA Not Detected (Not Detected)
[2023-02-02 06:35] LABS: Albumin Globulin Ratio 0.7 (0.9-2); Albumin Level 2.8 gm/dl (3.4-5.0); BUN Creatinine Ratio 34.9 (10-20); Bilirubin,Total 0.5 mg/dl (0.2-1.0); Calcium 8.3 mg/dl (8.6-10.3); Creatinine Clr Calc Pharmacy 25.8 ml/min; Est GFR (African American) 36.7 ml/min; Est GFR (Non-African American) 31.7 ml/min; Globulin 4.1 gm/dl (2.5-4.0); Potassium 3.6 mmol/L (3.5-5.1); Total Protein 6.9 gm/dl (6.0-8.3)
[2023-02-02 06:58] LABS: Basophils # (auto) 0.02 K/uL (0-0.2); Basophils % (auto) 0.2 %; Hematocrit (blood only) 26.9 % (37.0-47.0); Hemoglobin 9.8 g/dl (12.0-16.0); Immature Granulocytes # (auto) 0.18 K/uL (0.01-0.20); Immature Granulocytes % (auto) 1.6 %; Lymphocytes % (auto) 23.6 %; Mean Corpuscular Hemoglobin 32.1 pg (25.0-34.0); Mean Corpuscular Hgb Conc 36.4 g/dL (32.0-36.0); Mean Corpuscular Volume 88.2 fL (80.0-100.0); Mean Platelet Volume 12.7 fL (9.4-12.4); Monocytes # (auto) 0.41 K/uL (0.11-0.59); Monocytes % (auto) 3.7 %; Neutrophils # (auto) 7.83 K/uL (1.40-6.50); Neutrophils % (auto) 70.9 %; Platelet Count 75 K/uL (130-400); RDW Coefficient of Variation 13.1 % (11.5-14.5); RDW Standard Deviation 40.9 fL (36.4-46.3); Red Blood Count 3.05 M/uL (4.20-5.40); White Blood Count 11.04 K/ul (4.8-10.8)
[2023-02-02] MEDS: amLODIPine BESYLATE 5 MG TAB PO SCH (07:47)
[2023-02-02] MEDS: POTASSIUM CHLORIDE 20 MEQ/15 ML UDC PO SCH ×2 (07:48→20:16)
[2023-02-02] MEDS: dexAMETHasone 4 MG TAB PO SCH (07:48)
[2023-02-02] MEDS: carvediloL 12.5 MG TAB PO SCH ×2 (07:48→20:16)
[2023-02-02] MEDS: DOXYCYCLINE HYCLATE 100 MG in DEXTROSE 5% 100 ML IV SCH ×2 (07:48→20:25)
[2023-02-02] MEDS: dilTIAZem HCL 240 MG CAPCR PO SCH (07:48)
[2023-02-02] MEDS: PANTOprazole 40 MG TAB PO SCH ×2 (07:48→20:16)
--- NOTE | 2023-02-02 07:50 | Hospitalist Progress Note ---
Date of Service February 02, 2023 Assessment & Plan (1) Acute febrile illness: Plan: Fever, chills, weakness. Suspect anaplasmosis versus UTI. 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 Distal esophageal wall thickening suspicious for esophagitis. Trace pleural effusions/trace abdominal pelvic ascites. No evidence of obstruction/wall thickening/free air --> PPI BID. Patient w/ reflux/poor PO intake at home. 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 Got dose IVIG yesterday, plt now 75 Lasix 60mg IV BID initiated 02/01 for continued congestion on CXR, almost completely resolved on AM labs and provided QAM dose for today as completing steroids and will monitor kidney function/CXR in AM. Supplemental O2 as needed-- titrate per RN today given CXR findings Blood cultures remain NGTD WBC elevation from steroids, AFEBRILE (last temp 38.1C on 01/30) DVT proph: SCDS, no chemoproph given low plts, now improved. No hx ITP or purpura on exam PT/OT -- likely need rehab, [facility] planned. transport TBD pending O2 needs (2) Hypoxia: Plan: IMPROVING, 2nd to pulm congestion from IVF/steroid use suspected. No significant valvular disease, does have some MR Was upt ot 15L oxymask 01/30, IV lasix for total 80mg given but continued congestion on repeat exams with diuretics (suspected from high dose steroids) and placed on 60mg IV BID 02/01 w/ resolution on CXR and cleared up on exam Asked RN to titrate O2 as able to maintain sats Lasix 60mg IV x 1 this morning and holding further dosing (will need to resume hydralazine for BP as needed, likely tomorrow). PO KCL supplementation Intake/output not accurrate initially, but will monitor. 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 abx as outlined above s/p 2u platelets w/ repeat cbc w/ plt 20 Heme/onc consulted for pancytopenia and discussed with them last night -- started decadron, planning 4 day course (day 4 today) and will complete today IVIG per Dr Perez, peripheral smear ordered Would not dc unless plt AT LEAST >30k -- now up to 75 and improved, no bleeding CBC in Am as completed decadron (4) Gastritis: Plan: Gastritis/Reflux -- gastritis noted on imaging on admission - chronic reflux symptoms at home reported/belching per patient/daughter at bedside - ordered Protonix qam 01/30 and increased to BID given steroid use Reporting continued IMPROVEMENT in appetite/no early satiety or getting anything stuck. Speech consulted for completeness but discussed continuing at least BID for now on steroids, once daily at d/c Aspiration precautions, HOB elevation. Continue current diet with thin liquids Would continue PPI BID at discharge. 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 outpt f/u (5) Elevated troponin: Plan: Elevated troponin, acute Suspect demand, no acute ischemic change on EKG Echo without WMA. Suspect demand ischemia from infection/volume overload (IVC d ilation) Lasix as above for pulm edema, kidney function stable on such No chest pain reported, CTA chest negative for PE (6) Fever: Plan: improving as far as frequency/significant elevations. no further fevers monitor on abx/cx as above (7) Hypertension: Plan: HTN, chronic well-controlled BP stable, 144/64 Remains on amlodipine 10mg daily, diltiazem 240mg, hydralazine 25mg TID Olmesartan converted to losartan 100mg while inpatient --> held for now given bump in creatinine likley from IV lasix. Holding hydralazine to prevent hypotension/worsening kidney function but will plan to resume tomorrow if BPs stable and kidney function stable Hyperlipidemia- Diet managed (8) Anxiety: Plan: Anxiety, chronic suboptimal control due to grief With loss of in the last year -- support provided. Had been >60 years -Hold Lexapro for hyponatremia -- monitor (9) Hyponatremia: Plan: Acute, history of prior episodes ? Low solute versus SIADH, ?SSRI use Urine studies w/ Na125. Fluid restriction 1500ml daily, BNP elevated to 220 (ECHO w/o signiciant valvular dysfunction however) Additional Lasix 01/30 (20+20+40mg IV provided),Additional Lasix IV x 1 01/31 and increased as above Na stable at 132 and additional 1x dose lasix for today and monitor BMP in AM Holding SSRI Plan continued inpatient stay planning on rehab at d/c Admission and Anticipated Discharge Date Admission Date: January 29, 2023 Supervising Physician Co-Signing Physician Notes The patient was not seen by me. The chart was reviewed. Chest x-ray looks better. The patient is doing better. Case discussed with HARSH Bland. Agree with assessment and plan Subjective eval this morning, continued improvement. CXR w/ near resolution and last day of steroids. Plts improved. Urine clear in color. Discussed holding off further lasix for now and monitoring CXR in AM and labs. She LOVED the purewick overnight and was able to get rest. Daughter ace coming to visit today with her brother from out of town in [place]. She is hopeful for dc before her birthday this upcoming week. Physical Exam Physical Exam: General: WD/WN elderly female resting in bed, appearing improved from yesterday afternoon, no tachypnea, able to talk in complete sentences, daughter at bedside HEENT: head normocephalic, atraumatic, mmm, + JVD Resp: improvement in air entry bilaterally, less diminished in the bases, no wheezing/crackles, 96% on 3L (asked Rn to titrate) CV: regular rate/rhythm, + systolic murmur, trace pedal edema resolved, calves nontender, no cough GI: +BS, soft/NT : no royal -- purewick on wall from overnight with clear yellow urine MSK/Neuro: no focal deficits, no slurred speech Skin: no bullseye rash, skin perfused, no purpura Results & Data Results & Data Vital Signs (Past 12 Hours) Vital Signs Temp Pulse Pulse Resp BP Pulse Ox O2 Del Method 02/02/23 07:20 71 02/02/23 07:19 36.5 C 60 18 134/62 95 Nasal Cannula 02/02/23 02:26 36.5 C 69 16 130/60 93 Nasal Cannula 02/01/23 23:08 58 L 02/01/23 22:12 36.5 C 71 18 139/56 L 99 Nasal Cannula O2 Flow Rate 02/02/23 07:20 02/02/23 07:19 3 02/02/23 02:26 3 02/01/23 23:08 02/01/23 22:12 3 Laboratory Results 02/02/23 02/02/23 02/01/23 Range/Units 05:34 05:34 21:01 WBC 11.04 H (4.8-10.8) K/ul RBC 3.05 L (4.20-5.40) M/uL Hgb 9.8 L (12.0-16.0) g/dl Hct 26.9 L (37.0-47.0) % MCV 88.2 (80.0-100.0) fL MCH 32.1 (25.0-34.0) pg MCHC 36.4 H (32.0-36.0) g/dL RDW Std Deviation 40.9 (36.4-46.3) fL RDW Coeff of Yuval 13.1 (11.5-14.5) % Plt Count 75 L D (130-400) K/uL MPV 12.7 H (9.4-12.4) fL Immature Gran % (Auto) 1.6 % Neut % (Auto) 70.9 % Lymph % (Auto) 23.6 % [place] % (Auto) 3.7 % Eos % (Auto) 0.0 % Baso % (Auto) 0.2 % Neut # (Auto) 7.83 H (1.40-6.50) K/uL Lymph # (Auto) 2.60 (1.2-3.4) K/uL [place] # (Auto) 0.41 (0.11-0.59) K/uL Eos # (Auto) 0.00 (0-0.50) K/uL Baso # (Auto) 0.02 (0-0.2) K/uL Immature Gran # (Auto) 0.18 (0.01-0.20) K/uL RBC Agglutinates Sodium 132 L 128 L (136-145) mmol/L Potassium 3.6 3.5 (3.5-5.1) mmol/L Chloride 98 95 L (98-107) mmol/L Carbon Dioxide 27 25 (21-32) mmol/L Anion Gap 7 8 (3-11) BUN 52 H 53 H (6-23) mg/dl Creatinine 1.49 H 1.64 H (0.6-1.2) mg/dl Est Cr Clr Drug Dosing 25.8 23.5 ml/min Est GFR ( Amer) 36.7 32.7 ml/min Est GFR (Non-Af Amer) 31.7 28.2 ml/min BUN/Creatinine Ratio 34.9 H 32.3 H (10-20) Glucose 146 H 199 H (70-99(Fasting)) mg/dl Calcium 8.3 L 8.1 L (8.6-10.3) mg/dl Magnesium 2.0 (1.7-2.4) mg/dl Total Bilirubin 0.5 (0.2-1.0) mg/dl AST 71 H (13-39) U/L ALT 69 H (7-52) U/L Alkaline Phosphatase 75 (34-104) U/L Total Protein 6.9 D (6.0-8.3) gm/dl Albumin 2.8 L (3.4-5.0) gm/dl Globulin 4.1 H (2.5-4.0) gm/dl Albumin/Globulin Ratio 0.7 L (0.9-2) Nasal Screen MRSA (PCR) (Negative) Adenovirus (PCR) (NotDetected) Babesia microti DNA PCR (Not Detected) B. pertussis DNA (PCR) (NotDetected) B.parapertussis DNA PCR (NotDetected) C. pneumoniae DNA (PCR) (NotDetected) Coronavirus OC43 (PCR) (NotDetected) Coronavirus HKU1 (PCR) (NotDetected) Coronavirus 229E (PCR) (NotDetected) SARS-CoV-2 (PCR) (NotDetected) Coronavirus NL63 (PCR) (NotDetected) Hepatitis C Ab (EIA) (NON-REACTIVE) Hep C Ab Signal/Cutoff (<1.00) HIV (1&2) Ag & Ab Conf (NON-REACTIVE) Human Metapneumovir PCR (NotDetected) Influenza Type A (PCR) (NotDetected) Influenza Type B (PCR) (NotDetected) M. pneumoniae (PCR) (NotDetected) Parainfluenza 1 (PCR) (NotDetected) Parainfluenza 2 (PCR) (NotDetected) Parainfluenza 3 (PCR) (NotDetected) Parainfluenza 4 (PCR) (NotDetected) RSV (PCR) (NotDetected) Entero/Rhino (PCR) (NotDetected) 02/01/23 02/01/23 02/01/23 Range/Units 17:04 13:26 06:31 WBC (4.8-10.8) K/ul RBC (4.20-5.40) M/uL Hgb (12.0-16.0) g/dl Hct (37.0-47.0) % MCV (80.0-100.0) fL MCH (25.0-34.0) pg MCHC (32.0-36.0) g/dL RDW Std Deviation (36.4-46.3) fL RDW Coeff of Yuval (11.5-14.5) % Plt Count (130-400) K/uL MPV (9.4-12.4) fL Immature Gran % (Auto) % Neut % (Auto) % Lymph % (Auto) % [place] % (Auto) % Eos % (Auto) % Baso % (Auto) % Neut # (Auto) (1.40-6.50) K/uL Lymph # (Auto) (1.2-3.4) K/uL [place] # (Auto) (0.11-0.59) K/uL Eos # (Auto) (0-0.50) K/uL Baso # (Auto) (0-0.2) K/uL Immature Gran # (Auto) (0.01-0.20) K/uL RBC Agglutinates Sodium (136-145) mmol/L Potassium (3.5-5.1) mmol/L Chloride (98-107) mmol/L Carbon Dioxide (21-32) mmol/L Anion Gap (3-11) BUN (6-23) mg/dl Creatinine (0.6-1.2) mg/dl Est Cr Clr Drug Dosing ml/min Est GFR ( Amer) ml/min Est GFR (Non-Af Amer) ml/min BUN/Creatinine Ratio (10-20) Glucose (70-99(Fasting)) mg/dl Calcium (8.6-10.3) mg/dl Magnesium 2.2 (1.7-2.4) mg/dl Total Bilirubin (0.2-1.0) mg/dl AST (13-39) U/L ALT (7-52) U/L Alkaline Phosphatase (34-104) U/L Total Protein (6.0-8.3) gm/dl Albumin (3.4-5.0) gm/dl Globulin (2.5-4.0) gm/dl Albumin/Globulin Ratio (0.9-2) Nasal Screen MRSA (PCR) Negative (Negative) Adenovirus (PCR) Not Detected (NotDetected) Babesia microti DNA PCR (Not Detected) B. pertussis DNA (PCR) Not Detected (NotDetected) B.parapertussis DNA PCR Not Detected (NotDetected) C. pneumoniae DNA (PCR) Not Detected (NotDetected) Coronavirus OC43 (PCR) Not Detected (NotDetected) Coronavirus HKU1 (PCR) Not Detected (NotDetected) Coronavirus 229E (PCR) Not Detected (NotDetected) SARS-CoV-2 (PCR) Not Detected (NotDetected) Coronavirus NL63 (PCR) Not Detected (NotDetected) Hepatitis C Ab (EIA) (NON-REACTIVE) Hep C Ab Signal/Cutoff (<1.00) HIV (1&2) Ag & Ab Conf (NON-REACTIVE) Human Metapneumovir PCR Not Detected (NotDetected) Influenza Type A (PCR) Not Detected (NotDetected) Influenza Type B (PCR) Not Detected (NotDetected) M. pneumoniae (PCR) Not Detected (NotDetected) Parainfluenza 1 (PCR) Not Detected (NotDetected) Parainfluenza 2 (PCR) Not Detected (NotDetected) Parainfluenza 3 (PCR) Not Detected (NotDetected) Parainfluenza 4 (PCR) Not Detected (NotDetected) RSV (PCR) Not Detected (NotDetected) Entero/Rhino (PCR) Not Detected (NotDetected) 02/01/23 01/31/23 01/31/23 Range/Units 06:31 06:30 06:30 WBC 10.51 (4.8-10.8) K/ul RBC 3.25 L (4.20-5.40) M/uL Hgb 10.0 L (12.0-16.0) g/dl Hct 28.4 L (37.0-47.0) % MCV 87.4 (80.0-100.0) fL MCH 30.8 (25.0-34.0) pg MCHC 35.2 (32.0-36.0) g/dL RDW Std Deviation 41.1 (36.4-46.3) fL RDW Coeff of Yuval 13.0 (11.5-14.5) % Plt Count 17 L* (130-400) K/uL MPV (9.4-12.4) fL Immature Gran % (Auto) 0.6 % Neut % (Auto) 68.8 % Lymph % (Auto) 27.0 % [place] % (Auto) 3.4 % Eos % (Auto) 0.0 % Baso % (Auto) 0.2 % Neut # (Auto) 7.23 H (1.40-6.50) K/uL Lymph # (Auto) 2.84 (1.2-3.4) K/uL [place] # (Auto) 0.36 (0.11-0.59) K/uL Eos # (Auto) 0.00 (0-0.50) K/uL Baso # (Auto) 0.02 (0-0.2) K/uL Immature Gran # (Auto) 0.06 (0.01-0.20) K/uL RBC Agglutinates 2+ Sodium (136-145) mmol/L Potassium (3.5-5.1) mmol/L Chloride (98-107) mmol/L Carbon Dioxide (21-32) mmol/L Anion Gap (3-11) BUN (6-23) mg/dl Creatinine (0.6-1.2) mg/dl Est Cr Clr Drug Dosing ml/min Est GFR ( Amer) ml/min Est GFR (Non-Af Amer) ml/min BUN/Creatinine Ratio (10-20) Glucose (70-99(Fasting)) mg/dl Calcium (8.6-10.3) mg/dl Magnesium (1.7-2.4) mg/dl Total Bilirubin (0.2-1.0) mg/dl AST (13-39) U/L ALT (7-52) U/L Alkaline Phosphatase (34-104) U/L Total Protein (6.0-8.3) gm/dl Albumin (3.4-5.0) gm/dl Globulin (2.5-4.0) gm/dl Albumin/Globulin Ratio (0.9-2) Nasal Screen MRSA (PCR) (Negative) Adenovirus (PCR) (NotDetected) Babesia microti DNA PCR (Not Detected) B. pertussis DNA (PCR) (NotDetected) B.parapertussis DNA PCR (NotDetected) C. pneumoniae DNA (PCR) (NotDetected) Coronavirus OC43 (PCR) (NotDetected) Coronavirus HKU1 (PCR) (NotDetected) Coronavirus 229E (PCR) (NotDetected) SARS-CoV-2 (PCR) (NotDetected) Coronavirus NL63 (PCR) (NotDetected) Hepatitis C Ab (EIA) NON-REACTIVE (NON-REACTIVE) Hep C Ab Signal/Cutoff 0.05 (<1.00) HIV (1&2) Ag & Ab Conf NON-REACTIVE (NON-REACTIVE) Human Metapneumovir PCR (NotDetected) Influenza Type A (PCR) (NotDetected) Influenza Type B (PCR) (NotDetected) M. pneumoniae (PCR) (NotDetected) Parainfluenza 1 (PCR) (NotDetected) Parainfluenza 2 (PCR) (NotDetected) Parainfluenza 3 (PCR) (NotDetected) Parainfluenza 4 (PCR) (NotDetected) RSV (PCR) (NotDetected) Entero/Rhino (PCR) (NotDetected) 01/29/23 Range/Units 11:20 WBC (4.8-10.8) K/ul RBC (4.20-5.40) M/uL Hgb (12.0-16.0) g/dl Hct (37.0-47.0) % MCV (80.0-100.0) fL MCH (25.0-34.0) pg MCHC (32.0-36.0) g/dL RDW Std Deviation (36.4-46.3) fL RDW Coeff of Yuval (11.5-14.5) % Plt Count (130-400) K/uL MPV (9.4-12.4) fL Immature Gran % (Auto) % Neut % (Auto) % Lymph % (Auto) % [place] % (Auto) % Eos % (Auto) % Baso % (Auto) % Neut # (Auto) (1.40-6.50) K/uL Lymph # (Auto) (1.2-3.4) K/uL [place] # (Auto) (0.11-0.59) K/uL Eos # (Auto) (0-0.50) K/uL Baso # (Auto) (0-0.2) K/uL Immature Gran # (Auto) (0.01-0.20) K/uL RBC Agglutinates Sodium (136-145) mmol/L Potassium (3.5-5.1) mmol/L Chloride (98-107) mmol/L Carbon Dioxide (21-32) mmol/L Anion Gap (3-11) BUN (6-23) mg/dl Creatinine (0.6-1.2) mg/dl Est Cr Clr Drug Dosing ml/min Est GFR ( Amer) ml/min Est GFR (Non-Af Amer) ml/min BUN/Creatinine Ratio (10-20) Glucose (70-99(Fasting)) mg/dl Calcium (8.6-10.3) mg/dl Magnesium (1.7-2.4) mg/dl Total Bilirubin (0.2-1.0) mg/dl AST (13-39) U/L ALT (7-52) U/L Alkaline Phosphatase (34-104) U/L Total Protein (6.0-8.3) gm/dl Albumin (3.4-5.0) gm/dl Globulin (2.5-4.0) gm/dl Albumin/Globulin Ratio (0.9-2) Nasal Screen MRSA (PCR) (Negative) Adenovirus (PCR) (NotDetected) Babesia microti DNA PCR Not Detected (Not Detected) B. pertussis DNA (PCR) (NotDetected) B.parapertussis DNA PCR (NotDetected) C. pneumoniae DNA (PCR) (NotDetected) Coronavirus OC43 (PCR) (NotDetected) Coronavirus HKU1 (PCR) (NotDetected) Coronavirus 229E (PCR) (NotDetected) SARS-CoV-2 (PCR) (NotDetected) Coronavirus NL63 (PCR) (NotDetected) Hepatitis C Ab (EIA) (NON-REACTIVE) Hep C Ab Signal/Cutoff (<1.00) HIV (1&2) Ag & Ab Conf (NON-REACTIVE) Human Metapneumovir PCR (NotDetected) Influenza Type A (PCR) (NotDetected) Influenza Type B (PCR) (NotDetected) M. pneumoniae (PCR) (NotDetected) Parainfluenza 1 (PCR) (NotDetected) Parainfluenza 2 (PCR) (NotDetected) Parainfluenza 3 (PCR) (NotDetected) Parainfluenza 4 (PCR) (NotDetected) RSV (PCR) (NotDetected) Entero/Rhino (PCR) (NotDetected) Diagnostic Findings Chest X-Ray 02/02/23 07:00 XR chest 1V portable HISTORY: Shortness of breath. f/u pulmonary edema/congestion COMPARISON: Chest 02/01/2023. FINDINGS: No pneumothorax. Trace bilateral pleural effusions have improved. The cardiac silhouette remains mildly enlarged. The mild interstitial pulmonary edema/congestive change has almost completely resolved. No new focal lung consolidations to suggest a pneumonia. Degenerative changes again noted within the shoulders. IMPRESSION: Near complete resolution of the pulmonary edema and trace bilateral pleural effusions. ACT 112: Negative or not required by law. Electronically signed by: Milton Bergeron M.D. 02/02/2023 8:29 AM PG Care Time/CCT Total # of Minutes Spent Total Time Spent with Patient: Total time spent is greater than 50% in coordination of care (as documented) at patient's floor/unit and/or counseling patient: Coding Level of Care Code 55420 SUB INP/OBS CARE 3/50MIN Diagnoses Acute febrile illness R50.9 Hypoxia R09.02 Immune thrombocytopenia D69.3 Gastritis K29.70 Elevated troponin R77.8 Fever R50.9 Hypertension I10 Hypertension type: unspecified Anxiety F41.9 Hyponatremia E87.1 (7) Hypertension Hypertension type: unspecified Qualified Code(s): I10 - Essential (primary) hypertension
--- NOTE | 2023-02-02 08:30 | XRay Report ---
XR chest 1V portable HISTORY: Shortness of breath. f/u pulmonary edema/congestion COMPARISON: Chest 02/01/2023. FINDINGS: No pneumothorax. Trace bilateral pleural effusions have improved. The cardiac silhouette re yumi mildly enlarged. The mild interstitial pulmonary edema/congestive change has almost completely resolved. No new focal lung consolidations to suggest a pneumonia. Degenerative changes again noted w ithin the shoulders. IMPRESSION: Near complete resolution of the pulmonary edema and trace bilateral pleural effusions. ACT 112: Negative or not required by law. Electronically signed by: Milton Bergeron M.D. 02/02/2023 8:29 AM
[2023-02-02] MEDS ORDERED: FUROSEMIDE 40 MG/4 ML VIAL IV SCH (09:30)
[2023-02-03 06:37] LABS: Albumin Globulin Ratio 0.8 (0.9-2); Albumin Level 2.9 gm/dl (3.4-5.0); BUN Creatinine Ratio 45.2 (10-20); Bilirubin,Total 0.6 mg/dl (0.2-1.0); Calcium 8.6 mg/dl (8.6-10.3); Creatinine Clr Calc Pharmacy 31.1 ml/min; Est GFR (African American) 45.9 ml/min; Est GFR (Non-African American) 39.6 ml/min; Globulin 3.8 gm/dl (2.5-4.0); Magnesium 2.1 mg/dl (1.7-2.4); Potassium 3.8 mmol/L (3.5-5.1); Total Protein 6.7 gm/dl (6.0-8.3)
[2023-02-03 06:46] LABS: Hematocrit (blood only) 26.9 % (37.0-47.0); Hemoglobin 10.1 g/dl (12.0-16.0); Mean Corpuscular Hemoglobin 34.2 pg (25.0-34.0); Mean Corpuscular Hgb Conc 37.5 g/dL (32.0-36.0); Mean Corpuscular Volume 91.2 fL (80.0-100.0); Mean Platelet Volume 11.9 fL (9.4-12.4); Platelet Count 97 K/uL (130-400); RDW Coefficient of Variation 13.5 % (11.5-14.5); RDW Standard Deviation 41.3 fL (36.4-46.3); Red Blood Count 2.95 M/uL (4.20-5.40); White Blood Count 9.14 K/ul (4.8-10.8)
[2023-02-03] MEDS: DOXYCYCLINE HYCLATE 100 MG in DEXTROSE 5% 100 ML IV SCH ×2 (07:37→20:55)
[2023-02-03] MEDS: POTASSIUM CHLORIDE 20 MEQ/15 ML UDC PO SCH (07:38)
[2023-02-03] MEDS: amLODIPine BESYLATE 5 MG TAB PO SCH (07:38)
[2023-02-03] MEDS: carvediloL 12.5 MG TAB PO SCH ×2 (07:38→20:56)
[2023-02-03] MEDS: PANTOprazole 40 MG TAB PO SCH ×2 (07:38→20:55)
[2023-02-03] MEDS: dilTIAZem HCL 240 MG CAPCR PO SCH (07:38)
--- NOTE | 2023-02-03 07:56 | Hospitalist Progress Note ---
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 Was on ceftriaxone/Doxy, ceftriaxone fell off after 48 hours but ok as + anaplasmosis Was pancytopenic from such, low platelets to 3 and ASA held, s/p 2u Plt, now Decadron x 4 day course and IVIG 2 days ago for continued lows and plt up to 97. no bleeding reported Cr elevation from repeated Lasix use but improving w/ such given pulmonary edema prior. Repeat dose 40mg IV Lasix x 1 w/ 2 more doses PO KCL and stop On day 6 of Doxy -- needs to complete 10 day course through AM 02/08 PT/OT consulted during stay and we are hoping to have patient go to rehab for some strengthening/conditioning. Has been discussed multiple times and patient was agreeable. Monitor labs on repeat (2) Acute febrile illness: Plan: as above, now positive anaplasmosis testing no further fevers, blood cultures remain NGTD (3) Hypoxia: Plan: IMPROVING/resolved 2nd to pulm congestion from IVF/steroid use suspected. No significant valvular disease, does have some MR Was upt ot 15L oxymask 01/30, IV lasix for total 80mg given but continued congestion on repeat exams with diuretics (suspected from high dose steroids) and placed on 60mg IV BID 02/01 w/ improvement on repeat CXR Lasix 60mg IV x 1 on 02/02 and continued improvement in CXR, now on room air. 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 abx as outlined above s/p 2u platelets w/ repeat cbc w/ plt 20 Heme/onc consulted for pancytopenia and discussed with them last night -- started decadron and completed 4 day course w/ IVIG for low plt which have improved to 97k Heme/onc rec checking plt count q3-4 days to ensure no issues Monitor CBC in AM ASA remains on hold (5) Gastritis: Plan: Gastritis/Reflux CTAP w/ appendix poorly visualized, moderate fecal retention, suspected cystitis. Distal esophageal wall thickening suspicious for esophagitis. Trace pleural effusions/trace abdominal pelvic ascites. No evidence of obstruction/wall thickening/free air Started PPI BID as patient w/ reflux/poor PO intake at home and since initiation of protonix BID has had GREAT intake/appeitie and no further issues. Speech seen, current diet w/ thin liquids. Continue aspiration precautions Would continue Protonix BID at discharge. 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 outpt f/u (6) Elevated troponin: Plan: Elevated troponin, acute Suspect demand, no acute ischemic change on EKG Echo without WMA. Suspect demand ischemia from infection/volume overload (IVC dilation) Lasix as above for pulm edema, kidney function stable on such No chest pain reported, CTA chest negative for PE (7) Fever: Plan: improving as far as frequency/significant elevations. 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 Had been >60 years -Hold Lexapro for hyponatremia -- monitor Mood stable off this and consider not resuming (10) Hyponatremia: Plan: Acute, history of prior episodes? Low solute versus SIADH, ?SSRI use Urine studies w/ Na125. Fluid restriction 1500ml daily, BNP elevated to 220 (ECHO w/o significant valvular dysfunction however) Lasix/steroids as above, Na 132 yesterday and additional 60mg IV lasix x 1 --> 135 today Additional 40mg IV lasix for today and monitor BMP in AM Holding SSRI -- consider alternative agent vs dc of such at discharge Plan continued inpatient stay will need to complete 10 day course doxy at dc resume asa when ok w/ heme/onc will need repeat cbc to monitor plt q3-4 days called and updated daughter ace on the phone this morning. questions/concerns addressed planning on rehab at d/c. cm to follow Admission and Anticipated Discharge Date Admission Date: January 29, 2023 Supervising Physician Co-Signing Physician Notes The patient was not seen by me. The chart was reviewed. Case discussed with HARSH Bland. Agree with assessment and plan Subjective Patient evaluated this morning. Was up in chair eating breakfast. Good appetite. Will switch PO KCL to pills today and stop after one more dose lasix. Discussed anaplasmosis testing did come back positive and she is on the right treatment. Will call daughter with update today. Stable on room air presently. Plt up to 97. Physical Exam Physical Exam: General: WD/WN elderly female just got back into bed, NAD, on room air presently HEENT: head normocephalic, atraumatic, mmm, trachea midline Resp: slightly diminished in the bases but much better air entry bilaterally, no wheezing/crackles, on room air CV: regular rate/rhythm, + systolic murmur, trace pedal edema resolved, calves nontender, no cough GI: +BS, soft/NT : no royal MSK/Neuro: no focal deficits, no slurred speech Skin: no bullseye rash, skin perfused, no purpura Results & Data Results & Data Vital Signs (Past 12 Hours) Vital Signs Temp Pulse Pulse Resp BP Pulse Ox O2 Del Method 02/03/23 04:01 36.9 C 87 16 144/59 H 90 Room Air 02/02/23 22:01 56 L 02/02/23 22:14 36.4 C L 61 16 145/60 H 91 Room Air 02/02/23 22:10 Room Air Laboratory Results 02/03/23 02/03/23 02/03/23 Range/Units 07:45 05:43 05:43 WBC 9.14 (4.8-10.8) K/ul RBC 2.95 L (4.20-5.40) M/uL Hgb 10.1 L (12.0-16.0) g/dl Hct 26.9 L (37.0-47.0) % MCV 91.2 (80.0-100.0) fL MCH 34.2 H (25.0-34.0) pg MCHC 37.5 H (32.0-36.0) g/dL RDW Std Deviation 41.3 (36.4-46.3) fL RDW Coeff of Yuval 13.5 (11.5-14.5) % Plt Count 97 L (130-400) K/uL MPV 11.9 (9.4-12.4) fL Sodium 135 L (136-145) mmol/L Potassium 3.8 (3.5-5.1) mmol/L Chloride 100 (98-107) mmol/L Carbon Dioxide 28 (21-32) mmol/L Anion Gap 7 (3-11) BUN 56 H (6-23) mg/dl Creatinine 1.24 H (0.6-1.2) mg/dl Est Cr Clr Drug Dosing 31.1 ml/min Est GFR ( Amer) 45.9 ml/min Est GFR (Non-Af Amer) 39.6 ml/min BUN/Creatinine Ratio 45.2 H (10-20) Glucose 140 H (70-99(Fasting)) mg/dl POC Glucose 148 H (70-99) mg/dl Calcium 8.6 (8.6-10.3) mg/dl Magnesium 2.1 (1.7-2.4) mg/dl Total Bilirubin 0.6 (0.2-1.0) mg/dl AST 47 H (13-39) U/L ALT 58 H (7-52) U/L Alkaline Phosphatase 72 (34-104) U/L Total Protein 6.7 (6.0-8.3) gm/dl Albumin 2.9 L (3.4-5.0) gm/dl Globulin 3.8 (2.5-4.0) gm/dl Albumin/Globulin Ratio 0.8 L (0.9-2) A. phagocytophilum DNA (Negative) 02/02/23 01/29/23 Range/Units 22:23 11:20 WBC (4.8-10.8) K/ul RBC (4.20-5.40) M/uL Hgb (12.0-16.0) g/dl Hct (37.0-47.0) % MCV (80.0-100.0) fL MCH (25.0-34.0) pg MCHC (32.0-36.0) g/dL RDW Std Deviation (36.4-46.3) fL RDW Coeff of Yuval (11.5-14.5) % Plt Count (130-400) K/uL MPV (9.4-12.4) fL Sodium (136-145) mmol/L Potassium (3.5-5.1) mmol/L Chloride (98-107) mmol/L Carbon Dioxide (21-32) mmol/L Anion Gap (3-11) BUN (6-23) mg/dl Creatinine (0.6-1.2) mg/dl Est Cr Clr Drug Dosing ml/min Est GFR ( Amer) ml/min Est GFR (Non-Af Amer) ml/min BUN/Creatinine Ratio (10-20) Glucose (70-99(Fasting)) mg/dl POC Glucose 201 H (70-99) mg/dl Calcium (8.6-10.3) mg/dl Magnesium (1.7-2.4) mg/dl Total Bilirubin (0.2-1.0) mg/dl AST (13-39) U/L ALT (7-52) U/L Alkaline Phosphatase (34-104) U/L Total Protein (6.0-8.3) gm/dl Albumin (3.4-5.0) gm/dl Globulin (2.5-4.0) gm/dl Albumin/Globulin Ratio (0.9-2) A. phagocytophilum DNA Positive A (Negative) Diagnostic Findings Chest X-Ray 02/03/23 07:00 XR chest 1V portable CLINICAL HISTORY: f/u pulmonary edema/congestion TECHNIQUE: Single frontal radiograph of the chest was obtained. Comparison: Comparison is made to chest radiograph 02/02/2023 FINDINGS: No lines and tubes are seen. Cardiomegaly is noted. The aortic arch is calcified. The lungs are clear. No evidence of pleural effusion or pneumothorax. IMPRESSION: Interval resolution of previously noted pulmonary edema. ACT 112: Negative or not required by law. Electronically signed by: Bienvenido Canales M.D. 02/03/2023 9:48 AM PG Care Time/CCT Total # of Minutes Spent Total Time Spent with Patient: Total time spent is greater than 50% in coordination of care (as documented) at patient's floor/unit and/or counseling patient: Coding Level of Care Code 21139 SUB INP/OBS CARE MIN Diagnoses Anaplasmosis A77.49 Acute febrile illness R50.9 Hypoxia R09.02 Immune thrombocytopenia D69.3 Gastritis K29.70 Elevated troponin R77.8 Fever R50.9 Hypertension I10 Hypertension type: unspecified Anxiety F41.9 Hyponatremia E87.1 (8) Hypertension Hypertension type: unspecified Qualified Code(s): I10 - Essential (primary) hypertension
--- NOTE | 2023-02-03 08:05 | Hospitalist Progress Note ---
Date of Service February 03, 2023 Assessment & Plan (1) Thrombocytopenia: Plan: Reassuring and significant rise in platelets over the last 48 hours certainly supports the diagnosis of immune thrombocytopenia, still some questions as to what extent this is an "idiopathic" process exacerbated somewhat nonspecifically by recent inflammation versus one more specifically tied to her primary process. Mild thrombocytopenia is a common consequence of anaplasmosis infections and there are at least anecdotal reports of severe thrombocytopenia in that context. Moreover, in the veterinary literature there is some suggestion of an HUS like picture that can be seen in this infection. Fortunately, creatinine seems to be trending back towards normal, LDH was not dramatically elevated, and the peripheral smear did not show any schistocytes all suggesting against a microangiopathic process Patient has completed her plannded 4 days of dexamethasone and given the good count recovery, going forward indications would only be for close monitoring for any relapse of the thrombocytopenia. As soon as she is otherwise sufficiently stable for discharge we can coordinate outpatient monitoring of her platelet counts. Plan will be to continue to check every 3 to 4 days, more acutely if she has sudden onset of unusual bruising/bleeding/petechiae Plan Has completed dexamethasone, will continue to monitor platelet counts every 3 to 4 days for now and more acutely if there is any unusual signs of hemostatic compromise. Would complete appropriate treatment for potential anaplasmosis. Admission and Anticipated Discharge Date Admission Date: January 29, 2023 Subjective stable Physical Exam Physical Exam: VSS, now oxygenating more effectively on room air Results & Data Results & Data Vital Signs (Past 12 Hours) Vital Signs Temp Pulse Pulse Resp BP Pulse Ox O2 Del Method 02/03/23 04:01 36.9 C 87 16 144/59 H 90 Room Air 02/02/23 22:01 56 L 02/02/23 22:14 36.4 C L 61 16 145/60 H 91 Room Air 02/02/23 22:10 Room Air PG Care Time/CCT Total # of Minutes Spent Total Time Spent with Patient: Total time spent is greater than 50% in coordination of care (as documented) at patient's floor/unit and/or counseling patient: Coding Level of Care Code None Diagnoses Thrombocytopenia D69.6
--- NOTE | 2023-02-03 09:49 | XRay Report ---
XR chest 1V portable CLINICAL HISTORY: f/u pulmonary edema/congestion TECHNIQUE: Single frontal radiograph of the chest was obtained. Comparison: Comparison is made to chest radiograph 02/02/2023 FINDINGS: No lines and tubes are seen. Cardiomegaly is noted. The aortic arch is calcified. The lungs are clear . No evidence of pleural effusion or pneumothorax. IMPRESSION: Interval resolution of previously noted pulmonary edema. ACT 112: Negative or not required by law. Electronically signed by: Bienvenido Canales M.D. 02/03/2023 9:48 AM
[2023-02-03] MEDS ORDERED: FUROSEMIDE 40 MG/4 ML VIAL IV ONE (09:55)
[2023-02-03] MEDS ORDERED: POTASSIUM CHLORIDE CRTAB 20 MEQ TABCR PO SCH (10:00)
[2023-02-03] MEDS: POTASSIUM CHLORIDE CRTAB 20 MEQ TABCR PO SCH ×2 (10:28→21:00)
[2023-02-03] MEDS: LORazepam 0.5 MG TAB PO PRN (20:55)
[2023-02-04 08:01] LABS: Calcium 8.7 mg/dl (8.6-10.3); Magnesium 2.1 mg/dl (1.7-2.4); Potassium 4.3 mmol/L (3.5-5.1)
[2023-02-04 08:07] LABS: BUN Creatinine Ratio 44.3 (10-20); Creatinine Clr Calc Pharmacy 33.5 ml/min; Est GFR (African American) 50.2 ml/min; Est GFR (Non-African American) 43.4 ml/min
[2023-02-04 08:23] LABS: Hematocrit (blood only) 31.1 % (37.0-47.0); Hemoglobin 10.9 g/dl (12.0-16.0); Mean Corpuscular Hemoglobin 30.5 pg (25.0-34.0); Mean Corpuscular Volume 87.1 fL (80.0-100.0); Mean Platelet Volume 11.6 fL (9.4-12.4); Platelet Count 140 K/uL (130-400); RDW Coefficient of Variation 13.2 % (11.5-14.5); RDW Standard Deviation 42.1 fL (36.4-46.3); Red Blood Count 3.57 M/uL (4.20-5.40); White Blood Count 10.87 K/ul (4.8-10.8)
[2023-02-04] MEDS: dilTIAZem HCL 240 MG CAPCR PO SCH (09:12)
[2023-02-04] MEDS: amLODIPine BESYLATE 5 MG TAB PO SCH (09:12)
[2023-02-04] MEDS: PANTOprazole 40 MG TAB PO SCH (09:12)
[2023-02-04] MEDS: carvediloL 12.5 MG TAB PO SCH (09:12)
[2023-02-04] MEDS: DOXYCYCLINE HYCLATE 100 MG in DEXTROSE 5% 100 ML IV SCH (09:18)
--- NOTE | 2023-02-04 09:18 | XRay Report ---
XR chest 1V portable CLINICAL HISTORY: f/u pulmonary edema/congestion COMPARISON STUDY: Chest CT January 30, 2023. Chest radiograph February 03, 2023. FINDINGS: There is no pneumothorax. No pleural effusion is identified. Cardiomegaly is unchanged. The re is no consolidation. No evidence for pulmonary edema. IMPRESSION: No acute cardiopulmonary findings. No change in appearance of the chest. ACT 112: Negative or not required by law. Electronically signed by: Andi Downs M.D. 02/04/2023 9:16 AM
--- NOTE | 2023-02-04 13:35 | Discharge Summary ---
Date of Service February 04, 2023 Admission HPI Per Admitting Provider Ximena is an 87-year-old female who presented for weakness, fever, and UTI unimproved on Keflex Patient seen at the bedside. She reports she feels much better after receiving some fluids. She notes that she has not had any dysuria or polyuria. Has had a little nocturia, but in the last day has had much reduced urine output and has felt much more tired. She reports she has had fevers and felt generally weak an d unwell since Saturday. She has not any chest pain, chest pressure, shortness of breath, syncope, presyncope. She [place] and is outside often, has not noticed any rashes or tick bites recently. Did have Lyme 3 years ago. She reports she has had lower extremity muscle aches of around 2 days but no rash and no leg swelling. She saw urgent care for UTI on Saturday, w as placed on Keflex which she has been taking but which has not helped her symptoms. No other attempted treatment. Denies any history of heart or lung disease. No history of heart attack, no stents. No blood thinners. Medical History: Reviewed Medications: Reviewed Surgical History: Reviewed Family history: Reviewed Allergies: Reviewed Social History: Reviewed Code Status: DNR/DNI Admission Exam Per Admitting Provider General: A&Ox3. NAD. Cooperative. HEENT: Atraumatic, normocephalic. Vision and hearing grossly intact Pulm: CTAB A&P. -wheezes, -rales, -rhonchi. Symmetrical chest rise. No increased work of breathing. No respiratory distress. Cardiac: RRR,+sm. Radial pulses intact and symmetrical. Abdominal: Nontender, nondistended, soft. BS present. Ext: Warm, dry. Moves all extremities equally. Skin: No rash. Left posterior scapula with postsurgical well-healed scar. Principal Diagnosis Anaplasmosis Discharge Exam General: Awake, conversant Heart: S1, S2/regular rate and rhythm, no murmur rubs or gallops Lungs: Clear to auscultation bilaterally. Normal effort Abdomen: Soft/nontender/nondistended. No hepatosplenomegaly Extremities: No clubbing/cyanosis. 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 Was on ceftriaxone/Doxy, ceftriaxone fell off after 48 hours but ok as + anaplasmosis Was pancytopenic from such, low platelets to 3 and ASA held, s/p 2u Plt, now Decadron x 4 day course and IVIG 2 days ago for continued lows and plt up to normal. no bleeding reported Cr elevation from repeated Lasix use but resolved w/ such given pulmonary edema prior. On day 7 of Doxy -- needs to complete 10 day course through AM 02/08 PT/OT consulted during stay and we are hoping to have patient go to rehab for some strengthening/conditioning. Has been discussed multiple times and patient was agreeable. Patient has been accepted [facility] Plan is to monitor CBC (2) Acute febrile illness: as above, now positive anaplasmosis testing no further fevers, blood cultures remain NGTD (3) Hypoxia: resolved 2nd to pulm congestion from IVF/steroid use suspected. No significant valvular disease, does have some MR Was upt ot 15L oxymask 01/30, IV lasix for total 80mg given but continued congestion on repeat exams with diuretics (suspected from high dose steroids) and placed on 60mg IV BID 02/01 w/ improvement on repeat CXR Lasix 60mg IV x 1 on 02/02 and continued improvement in CXR, now on room air. 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 abx as outlined above s/p 2u platelets w/ repeat cbc w/ plt 20 Heme/onc consulted for pancytopenia - started decadron and completed 4 day course w/ IVIG for low plt which have improved to normal Heme/onc rec checking plt count q3-4 days to ensure no issues Monitor CBC outpatient (5) Gastritis: Gastritis/Reflux CTAP w/ appendix poorly visualized, moderate fecal retention, suspected cystitis. Distal esophageal wall thickening suspicious for esophagitis. Trace pleural effusions/trace abdominal pelvic ascites. No evidence of obstruction/wall thickening/free air Started PPI BID as patient w/ reflux/poor PO intake at home and since initiation of protonix BID has had GREAT intake/appeitie and no further issues. Speech seen, current diet w/ thin liquids. Continue aspiration precautions Would continue Protonix BID at discharge. 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 outpt f/u (6) Elevated troponin: Elevated troponin, acute Suspect demand, no acute ischemic change on EKG Echo without WMA. Suspect demand ischemia from infection/volume overload (IVC dilation) Lasix as above for pulm edema, kidney function stable on such No chest pain reported, CTA chest negative for PE (7) Fever: improving as far as frequency/significant elevations. 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 Had been >60 years -Hold Lexapro for hyponatremia -- monitor Mood stable off this and consider not resuming (10) Hyponatremia: Acute, history of prior episodes? Low solute versus SIADH, ?SSRI use Urine studies w/ Na125. Fluid restriction 1500ml daily, BNP elevated to 220 (ECHO w/o significant valvular dysfunction however) Lasix/steroids as above, Na 132 yesterday and additional 60mg IV lasix x 1 --> 135 today Additional 40mg IV lasix for today and monitor BMP in AM Holding SSRI -- consider alternative agent vs dc of such at discharge Plan called and updated daughter ace on the phone this morning. questions/concerns addressed Discharge to rehab Total Time Total Time Spent Total Time Spent (In Minutes): 35 Discharge Plan Discharge Items Patient Disposition: Transfer Nursing Home Fac Reason For Visit: UTI VS ANAPLASMOSIS Discharge Diagnosis: Anaplasmosis Activity: As commented below Activity Comment: Per PT/OT recommendations Non-emergency contact: Primary Care Provider Call non-emergency contact if: you have any medication questions Follow-up/Referrals: Dawna Silverman DO [Primary Care Provider] - Diet: Heart Healthy Addtl Attending Provider Instructions: Advised to continue doxycycline till 5/26 AM Advised to check platelet count every 3 to 4 days to ensure complete recovery Pending Studies at Discharge: No Stand-Alone Forms: My [facility] Skilled Items Patient informed of condition?: Yes DNR: Yes Discharge Level of Care: Skilled Communicable Disease: No Discharge Prognosis: Stable Lines: None Urinary Catheter: No Medications and DC Order Prescriptions: New doxycycline hyclate 100 mg Capsule 100 mg PO BID Qty: 7 0RF pantoprazole 40 mg Tablet,Delayed Release (Dr/Ec) 40 mg PO BID Qty: 14 0RF Continued escitalopram oxalate 20 mg tablet 20 mg PO QAM Qty: 90 1RF olmesartan 40 mg tablet 40 mg PO HS Qty: 90 1RF carvedilol 12.5 mg tablet 12.5 mg PO BID Qty: 180 1RF diltiazem HCl 240 mg tablet extended release 24 hr 240 mg PO QAM Qty: 90 1RF hydralazine 25 mg tablet 75 mg PO TID Qty: 270 5RF amlodipine 10 mg tablet 10 mg PO DAILY Qty: 90 1RF lorazepam 0.5 mg tablet 0.5 mg PO DAILY PRN (Reason: Anxiety) Qty: 30 0RF PreserVision AREDS [id number] [id number]-ch-loss capsule 1 cap PO BID aspirin 81 mg tablet,delayed release (DR/EC) 81 mg PO QAM Centrum 18-400 mg-mcg Tablet 1 tab PO QAM acetaminophen [Tylenol] 325 mg Tablet 650 mg PO QID PRN (Reason: Pain) Discontinued cephalexin 500 mg capsule 500 mg PO BID Rx Instructions: TAKE FOR 7 DAYS Discharge Orders: Discharge Order (Routine); Ordered 02/04/23 Ordered By: Candido Burgos Admission Data Admit Date/Time: 01/29/23 12:16 Attending Provider: Candido Burgos Admit Provider: David Regalado Primary Care Provider: Dawna Silverman Other Providers: David Regalado ; Meseret Chang ; [facility] Other Interventions: Discharge Summary Assessment (RN) Last Done: 02/04/23 13:38 Coding Level of Care Code 18653 INP/OBS DISCH >30 MIN Diagnoses Anaplasmosis A77.49 Acute febrile illness R50.9 Hypoxia R09.02 Immune thrombocytopenia D69.3 Gastritis K29.70 Elevated troponin R77.8 Fever R50.9 Hypertension I10 Hypertension type: unspecified Anxiety F41.9 Hyponatremia E87.1
[2023-02-04] MEDS ORDERED: DOXYCYCLINE HYCLATE 100 MG CAP PO SCH (21:00)
[2023-02-06 02:59] LABS: RBC Morphology Unremarkable
== END 2023-02-04 14:11 | DRG 868 ==
LOC: ED 08:05 → SUATTDRO 12:16 → 2W 12:16

== ENCOUNTER 2024-10-14 02:05 | Inpatient (IN) ==
[2024-10-14] MEDS: DICLOFENAC SOD 1% GEL 100 GM TUBE EXT STA (02:45)
[2024-10-14] MEDS: ACETAMINOPHEN 325 MG TAB PO STA (03:47)
--- NOTE | 2024-10-14 03:47 | Emergency Department Note ---
Impression & Plan Acute pain of left hip, Ambulatory dysfunction ED Provider Note ED Provider Note NAME: SCOTT ONEAL AGE:89 SEX: Female : 1935 ARRIVES VIA: Private vehicle INFORMANT: Patient ED PROVIDER(s): June Kyle DO CHIEF COMPLAINT: Left hip pain HPI: This is an 89-year-old female who presents emergency department due to concern for left hip and left leg pain. She states she does have a history of weakness and intermittent pain in the left leg and does have difficulty walking. She states typically she uses a walker at home or a cane at night to go to the bathroom. She states no recent trauma or change in activity. She states in the last 3 to 4 days she has had increased sharp spasms that seem to start lower and lower leg and radiate up through her left hip and into her left low back. She states the worst area of pain seems to be at the left hip anteriorly. No recent change in medications. She does have chronic lower extremity edema bilaterally. She denies fevers or chills. No prior joint replacements. She denies any change in urine or stools. Patient states tonight she could not walk due to worsening weakness and pain. No history of rheumatologic disorders. No history of low back problems. PAST MEDICAL HISTORY:See Below PAST SURGICAL HISTORY:See Below FAMILY HISTORY:See Below SOCIAL HISTORY:See Below HOME MEDICATIONS:See Below ALLERGIES:See Below VITALS:See Below PHYSICAL EXAMINATION: GENERAL: alert, well appearing, well nourished, no distress, non-toxic EYE EXAM: normal conjunctiva, PERRL and EOM's grossly intact OROPHARYNX: no exudate, no erythema, lips, buccal mucosa, and tongue normal and mucous membranes are moist NECK: supple, no nuchal rigidity, no adenopathy, non-tender LUNGS: Clear to auscultation. Normal chest wall mechanics, no w/r/r HEART: no murmurs, S1 normal and S2 normal ABDOMEN: abdomen soft, non-tender, normo-active bowel sounds, no masses, no rebound or guarding. SKIN: no rashes, petechiae, orbruising UPPER EXTREMITIES: upper extremities are grossly normal. FROM, nml pulses b/l. LOWER EXTREMITIES: 1+ bilateral pitting edema. FROM RLE, nml pulses b/l. Decreased range of motion at the left lower extremity due to pain and weakness. No bony tenderness. No evidence of trauma or deformity. NEURO EXAM: Normal sensorium, cranial nerves II-XII grossly intact, normal speech, no facial droop,nogross weakness of arms, no gross weakness of legs. Gross sensation intact. No ataxia. Vital Signs: reviewed and remarkable Differential Diagnosis: Arthritis, occult fracture, ligamentous injury, sciatica, peripheral neuropathy, septic arthritis, spinal stenosis, as well as others were considered MEDICAL DECISION MAKING: This is an 89-year-old female who presents to the emergency department with family at bedside due to increased left leg weakness and pain. She was afebrile and hemodynamically stable. She was neurovascularly intact and did have 1+ bilateral lower extremity edema. Patient with decreased range of motion on the left secondary to pain. We started with x-rays initially which did not reveal any acute pathology. Given advanced age, and risk of occult pathology hiding an x-ray due to her worsening symptoms and ambulatory dysfunction we discussed additional CT imaging. CT is performed. After reviewing these and discussion at bedside I suspect some of her problems may actually be originating from findings noted in the lumbar spine. Patient was given topical Voltaren, oral Tylenol, and oral gabapentin with some improvement in her pain. She was able to use her walker although had difficulty getting out of bed, standing, and still had difficulty ambulating despite patient stating that it was "better than before". She states while she still had pain with ambulation it was less than before as well. As patient is elderly and lives alone, family concern for her safety. After further bedside discussion, we discussed further inpatient evaluation. Case discussed with the hospitalist team. Labs drawn and sent and IV established as a precaution. Patient was monitored on telemetry. Consultation(s): 0602: Discussed with Dr. Chau, [facility] hospitalist team, for additional evaluation and management. ER Treatment Provided: See below 0600: Ambulatory trial performed here. While patient states she does have less pain than she did before, she did still have pain getting out of bed and difficulty getting to her walker. Daughter is concerned given she lives alone for her ability to safely ambulate around her house given the amount of pain and the fact that she was previously dragging her left foot. Diagnostics Interpreted By Me: -Cardiac Monitoring: An order was placed for continuous cardiac monitoring. The monitor shows a rate of 72 with normal sinus rhythm. -Laboratory studies: As stated above and show below. -Imaging studies: xr left hip/pelvis: No obvious fracture or dislocation X-ray lumbar spine: Degenerative changes noted, no obvious compression fracture Triage Nursing Note Reviewed Prior/Outside Records Reviewed Past Med/Surg History Problem List (Updated 10/14/24 @ 06:41 by Patricio Chau MD) Lumbar degenerative disc disease Weakness of left lower extremity Ambulatory dysfunction (Acute) Acute pain of left hip (Acute) Hyponatremia Anxiety Dyslipidemia Hypertension Lumbar spinal stenosis Medical History Anaplasmosis Gastritis Acute Lyme disease (05/2020) Surgical History H/O hand surgery (06/2023) S/P bilateral cataract extraction (03/2022) History of skin surgery Family History Mother Hypertension Brother Lung cancer Sister Ovarian cancer Denies family history of Prostate cancer Myocardial infarction Breast cancer Colorectal cancer Social History Smoking Status: Never smoker Second Hand Exposure: No; Do You Dip or Chew Tobacco: No; Hx Alcohol Use: Yes Alcohol type: wine Hx Substance Use: No Preferred Language: Indonesian Communication Ability: Effective Visual Impairment: No Limitations Hearing Ability: Normal Funeral Attendant Required: No Beliefs That Will Affect Care: None marital status: / marital status details: lost of 62 yrs Jun 2022 Current Living Situation: Alone current occupational status: other current occupation: Homemaker How many Children do You have: 5 Feels Safe at Home: Yes Childhood Exposure to Second-Hand Smoke: Yes Diet: regular Diet Comment: regular caffeine: Yes during the past year weight has: remained stable Dental Care, Regularly: No Physical Activity Frequency: Daily Seatbelt Use: always Sunscreen Use: Yes Assistive Devices: Glasses and Walker Allergies Allergies Allergy/AdvReac Type Severity Reaction Status Date / Time No Known Drug Allergies Allergy Unknown Verified 07/14/24 12:51 Home Meds Home Medications Medication Instructions Recorded Confirmed aspirin 81 mg tablet,delayed 81 mg PO QAM 01/06/20 10/14/24 release acetaminophen 325 mg tablet 650 mg PO QID PRN Pain 05/20/20 10/14/24 (Tylenol) vitamins A,C,[id number] 4,296 1 cap PO BID 07/31/22 10/14/24 mcg-226 mg-90 mg capsule (PreserVision AREDS) Previous Rx's Medication Instructions Recorded mecobalamin (vitamin B12) 1,000 1,000 mcg sublingual DAILY #30 tabs 12/26/23 mcg disintegrating tablet,sublingual diltiazem HCl 240 mg 240 mg PO QAM #90 tabs 04/20/24 tablet,extended release 24 hr hydralazine 25 mg tablet 75 mg (3 x 25 mg) PO TID #270 tabs 05/13/24 carvedilol 12.5 mg tablet 12.5 mg PO BID #180 tabs 07/20/24 amlodipine 10 mg tablet 10 mg PO DAILY #90 tabs 08/17/24 escitalopram oxalate 20 mg tablet 20 mg PO QAM #90 tabs 08/23/24 olmesartan 40 mg tablet 40 mg PO HS #90 tabs 09/01/24 lorazepam 0.5 mg tablet 0.5 mg PO DAILY PRN Anxiety #30 09/24/24 tabs Results & Data (ED) Vital Signs Vital Signs - 24 hr 10/14/24 02:09 10/14/24 02:43 10/14/24 04:00 Temperature 36.9 C Temperature Source Temporal Artery Scan Pulse Rate 89 74 Pulse Rate [Finger] 80 Pulse Rhythm [Finger] Regular Pulse Strength [Finger] Normal Respiratory Rate 19 20 Respiratory Effort / Characteristics Non-Labored Spontaneous Non-Labored Spontaneous Respiratory Depth Normal Normal Respiratory Pattern Regular Regular Blood Pressure 150/74 H Blood Pressure [Right Arm] 180/67 H Blood Pressure Mean 99 Blood Pressure Mean [Right Arm] 104 Blood Pressure Position [Right Arm] Lying Pulse Oximetry 96 97 Oxygen Delivery Method Room Air Room Air Sepsis Recent Fever Within 48 Hours No Sepsis New/Unexplained Change in Mental Status N/A Sepsis Action Taken by Nursing No Action Required 10/14/24 04:00 10/14/24 05:00 10/14/24 06:00 Temperature Temperature Source Pulse Rate 72 70 70 Pulse Rate [Finger] Pulse Rhythm [Finger] Pulse Strength [Finger] Respiratory Rate 18 18 18 Respiratory Effort / Characteristics Respiratory Depth Respiratory Pattern Blood Pressure 163/71 H 126/56 L 149/79 H Blood Pressure [Right Arm] Blood Pressure Mean 119 97 115 Blood Pressure Mean [Right Arm] Blood Pressure Position [Right Arm] Pulse Oximetry 94 95 94 Oxygen Delivery Method Room Air Room Air Room Air Sepsis Recent Fever Within 48 Hours Sepsis New/Unexplained Change in Mental Status Sepsis Action Taken by Nursing Laboratory Data 10/14/24 06:40 10/14/24 06:40 Administered Medications Acetaminophen (Acetaminophen 325 Mg Tab) 650 mg PO QID PRN PRN Reason: Pain Stop: 11/13/24 09:30 Last Admin: 10/14/24 22:08 Dose: 650 mg Documented By: ANGE Amlodipine Besylate (Amlodipine Besylate 5 Mg Tab) 10 mg PO DAILY [facility] Stop: 11/13/24 09:30 Last Admin: 10/14/24 10:47 Dose: 10 mg Documented By: LAMAR Aspirin (Aspirin 81 Mg Ectab) [facility] Stop: 11/13/24 09:30 Last Admin: 10/14/24 10:47 Dose: 81 mg Documented By: LAMAR Carvedilol (Carvedilol 12.5 Mg Tab) 12.5 mg PO BID [facility] Stop: 11/13/24 09:30 Last Admin: 10/14/24 21:23 Dose: 12.5 mg Documented By: Admin: 10/14/24 10:47 Dose: 12.5 mg Documented By: LAMAR Cyanocobalamin (Cyanocobalamin (B-12) 500 Mcg Tablet) 1,000 mcg PO DAILY [facility] Stop: 11/13/24 09:59 Last Admin: 10/14/24 10:48 Dose: 1,000 mcg Documented By: LAMAR Diltiazem HCl (Diltiazem Hcl 240 Mg Capcr) [facility] [place] Stop: 11/13/24 09:44 Last Admin: 10/14/24 10:48 Dose: 240 mg Documented By: LAMAR Escitalopram Oxalate (Escitalopram Oxalate 20 Mg Tab) 20 mg PO QAM [facility] Stop: 11/13/24 09:44 Last Admin: 10/14/24 10:48 Dose: 20 mg Documented By: LAMAR Hydralazine HCl (Hydralazine Hcl 25 Mg Tab) 75 mg PO TID [facility] Stop: 11/13/24 09:30 Last Admin: 10/14/24 21:22 Dose: 75 mg Documented By: Admin: 10/14/24 13:50 Dose: 75 mg Documented By: Admin: 10/14/24 10:48 Dose: 75 mg Documented By: LAMAR Losartan Potassium (Losartan Potassium 50 Mg Tab) 100 mg PO HS [facility] Stop: 11/13/24 20:59 Last Admin: 10/14/24 21:22 Dose: 100 mg Documented By: ANGE Oxycodone HCl (Oxycodone Hcl Ir 5 Mg Tab (Immediate Release)) 5 mg PO Q8 PRN PRN Reason: Pain Stop: 10/28/24 08:25 Last Admin: 10/14/24 08:35 Dose: 5 mg Documented By: LAMAR Discontinued Medications Acetaminophen (Acetaminophen 325 Mg Tab) 650 mg PO NOW STA Stop: 10/14/24 03:44 Last Admin: 10/14/24 03:47 Dose: 650 mg Documented By: VIMAL Diclofenac Sodium (Diclofenac Sod 1% Gel 100 Gm Tube) 1 gm EXT NOW STA; Protocol Stop: 10/14/24 02:34 Last Admin: 10/14/24 02:45 Dose: 1 gm Documented By: ERNESTINA Gabapentin (Gabapentin 100 Mg Cap) 100 mg PO NOW STA Stop: 10/14/24 04:42 Last Admin: 10/14/24 05:03 Dose: 100 mg Documented By: VIMAL Imaging Data Radiologist's Impression: Hip/Pelvis X-Ray 10/14/24 02:33 EXAM: XR hip LT 2V w pelvis CLINICAL HISTORY: LT HIP PAIN JOLTS OF PAIN LIMITED ROM JM TECHNIQUE: X-ray images of the left hip joint and pelvis were obtained in anteroposterior (AP) projection. COMPARISON: No prior studies available for comparison. FINDINGS: Pelvic Bones: No evidence of fractures, dislocations, or significant osseous lesions. Acetabular structures appear normal and intact. No signs of acetabular fracture or dysplasia. Femoral heads are normal and centered within the acetabulum. No evidence of fractures, avascular necrosis, or significant deformities. Reduced bone density. Hip and SI Joints: Mild osteoarthritic changes of both sacroiliac joints as noted by few marginal osteophytes and subchondral sclerosis. No evidence of joint effusion or subluxation. No evidence of hip dislocation, subluxation. Preserved hip joint spaces. Symphysis Pubis: Osteiitis pubis. No evidence of separation or widening. Soft Tissues: Visualized soft tissues are normal and unremarkable. No soft tissue swelling, calcifications, or masses. Additional Findings: No other significant abnormalities noted. IMPRESSION: 1. 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 2. Reduced bone density. 3. No evidence of acute fractures, or dislocations. Disclaimer: A subtle bone abnormality or fracture may not be readily apparent on X-rays, thus clinical correlation and further imaging including follow-up CT, MRI, or follow-up X-rays are advised as needed. Electronically signed by Sebastián Avitia 10-14-2024 04:40 AM Lumbar Spine X-Ray 10/14/24 02:33 EXAM: XR lumbar spine 2-3V CLINICAL HISTORY: LEFT HIP PAIN JOLTS OF PAIN LIMITED ROM JMF TECHNIQUE: X-ray images of the lumbar spine were obtained in anteroposterior (AP), LS spot and lateral projections. COMPARISON: No prior studies available for comparison. FINDINGS: Alignment: Abnormal alignment, with multiple lateral tilt of vertebral bodies. L4 spondylolisthesis grade I over L5. L3 retrolisthesis grade I over L4. Vertebral Bodies: Degenerative changes noted by multiple marginal osteophytes, subchondral sclerosis and facet joints arthropathy. Reduced bone density. Intervertebral Disc Spaces: Severe degenerative changes seen as multilevel decrease in disc spaces and irregularities. Soft Tissues: Paraspinal soft tissues are of normal thickness. No evidence of paraspinal soft tissue swelling or mass effect. Additional Findings: No other significant abnormalities noted. IMPRESSION: 1. Severe degenerative changes of vertebral bodies and intervertebral disc spaces with loss of disc spaces height and severe sclerosis of vertebral endplates. 2. Reduced bone density. 3. No evidence of acute fractures, or dislocations. Disclaimer: A subtle bone abnormality or fracture may not be readily apparent on X-rays, thus clinical correlation and further imaging including follow-up CT, MRI, or follow-up X-rays are advised as needed. Electronically signed by Sebastián Avitia 10-14-2024 04:[address] 10/14/24 03:43 EXAM: CT hip LT wo con CLINICAL HISTORY: low back pain , left hip pain , difficulty ambulating TECHNIQUE: Multiple, contiguous, nonenhanced CT scan of the right hip joint in axial plane with multiplanar reconstructions. One of the following dose reduction techniques was utilized for this exam: Automated exposure control, adjustment of the mA and/or kV according to patient size, and use of iterative reconstruction. CTDI: 48mGy, DLP: 1117.30mGy*cm. COMPARISON: prior CR 10/14/2024 FINDINGS: Bones: Diffuse osteopenia. Mild irregularities of the greater trochanters, likely representing ethesiopathies Normal alignment of the femoral heads, necks, and acetabula. No fractures, lytic, or sclerotic lesions. No evidence of avascular necrosis of the femoral heads. Joints: Mild arthritic changes with relatively mild narrowing of the joint space. No evidence of joint effusions or intra-articular loose bodies. Soft Tissues: Normal appearance of the soft tissues surrounding the hips. No abnormal masses, swelling, or fluid collections. Vascular calcifications. IMPRESSION: 1. No fracture lines. 2. Diffuse osteopenia. 3. 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 4. Mild irregularities of the greater trochanters, likely representing enthesopathies. 5. No significant interval changes. Electronically signed by Sebastián Avitia 10-14-2024 05:[address] 10/14/24 03:43 EXAM: CT lumbar spine wo con CLINICAL HISTORY: low back pain , left hip pain , difficulty ambulating. TECHNIQUE: CT scan of the lumbar spine was performed without the administration of intravenous contrast. Contiguous axial images were obtained from the upper lumbar spine to the sacrum. Coronal and sagittal reformatted images were also reviewed. One of the following dose reduction techniques was utilized for this exam. Automated exposure control, adjustment of the mA and/or kV according to patient size, and use of iterative reconstruction. COMPARISON: CR 10/14/2024, CT 05/20/2020. FINDINGS: Vertebrae: Moderate levoscoliosis and left lateral subluxations. Diffuse mottled osteopenia of the examined bones, with accentuated bone trabeculae. Minimal retrolisthesis of L5 over S1, L3 over L4 vertebral bodies, of degenerative aspect. Degenerative forward slippage of L4 over L5 secondary to advanced facets arthropathic changes ( degenerative spondylolisthesis). Wedged T12 vertebral body, with about 20% height reduction, no retropulsion, with intact posterior neural elements. chronic (stable). Small T12 osseous hemangioma. No acute fractures, lytic or sclerotic lesions. 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 Intervertebral Discs: Lumbar spondylotic changes manifested by anterior marginal bone hypertrophy of the opposing vertebral endplates with a reduced height of the L1/2 down to L4/5 intervertebral discs with multilevel vacuum phenomena. Multilevel Schmorl's node vertebral end plate with fine irregularities. [id number] analysis: L1-L2: Diffuse disc bulge/traction osteophyte complex measuring 2 mm, abutting the theca and causing moderate bilateral foraminal stenosis. No spinal canal stenosis.No ligamentum flavum hypertrophy and facet joint arthropathy. L2-L3: Diffuse disc bulge/traction osteophyte complex measuring 3.2 mm, indenting the theca and causing moderate bilateral foraminal stenosis. No spinal canal stenosis.No ligamentum flavum hypertrophy and facet joint arthropathy. L3-L4: Diffuse disc bulge/traction osteophyte complex measuring 5 mm, indenting the theca and causing moderate to marked left and moderate right foraminal stenosis, causing left radicular compression. Mild spinal canl stenosis. Mild ligamentum flavum hypertrophy and facet joint arthropathy. L4-L5: Diffuse disc bulge/traction osteophyte complex measuring 5.8 mm, indenting the theca and causing moderate to marked bilateral foraminal stenosis, causing left radicular compression, more on the right side. Moderate to marked spinal canal stenosis. The effect is augmented by anterolithesis, marked hypertrophic facetal arthropathy, and hypertrophied ligamenta flava. L5-S1: Diffuse disc bulge/traction osteophyte complex measuring 4.7 mm, indenting the theca and causing moderate bilateral foraminal stenosis. No spinal canal stenosis. Mild ligamentum flavum hypertrophy and facet joint arthropathy. Facet Joints: Multilevel facets arthropathic changes with degenerative foraminal narrowing and nerve root compression. Soft Tissues: Mild fatty infiltration of the paraspinal muscles. Normal appearance of the paraspinal soft tissues. No abnormal masses, fluid collections, or signs of inflammation. Aortic vascular atherosclerotic calcifications. Right adrenal calcification, is likely old granulomatous. IMPRESSION: 1. No fracture lines or dislocations. 2. Diffuse osteopenia. 3. Moderate levoscoliosis and left lateral subluxations. 4. Minimal retrolisthesis of L5 over S1, L3 over L4 vertebral bodies, of degenerative aspect. 5. Degenerative forward slippage of L4 over L5 secondary to advanced facets arthropathic changes ( degenerative spondylolisthesis). 6. Wedged T12 vertebral body, with about 20% height reduction, no retropulsion, with intact posterior neural elements. chronic (stable). 7. Lumbar spondylotic changes 8. Mutileverl diffuse disc bulges cause variable degrees of the central neural canal and encroachment upon the corresponding neural exit foramina, most evident at L4-5 level causing moderate to marked bilateral foraminal stenosis, causing left radicular compression, more on the right side and moderate to marked spinal canal stenosis. 9. Opposing facets arthropathies add to degenerative foraminal stenosis at those levels. 10. Still noted bilateral pleural effusions, need further CT chest correlation. 11. No significant interval changes. Electronically signed by Sebastián Avitia 10-14-2024 05:21 AM Discharge Plan Visit Data Chief Complaint: Leg Weakness, Bilateral Stated Complaint: PAIN AND WEAKNESS IN LEGS - MAINLY L LEG ED Provider: June Kyle Discharge Problem: Acute pain of left hip, Ambulatory dysfunction Patient Disposition: Admitted As Inpatient Discharge Instructions Interventions: ED Discharge Assessment Last Done: 10/14/24 09:32
--- NOTE | 2024-10-14 04:20 | XRay Report ---
EXAM: XR lumbar spine 2-3V CLINICAL HISTORY: LEFT HIP PAIN JOLTS OF PAIN LIMITED ROM [facility] TECHNIQUE: X-ray images of the lumbar spine were obtained in anteroposterior (AP), LS spot and lateral projections. COMPARISON: No prior studies available for comparison. FINDINGS: Alignment: Abnormal alignment, with multiple lateral tilt of vertebral bodies. L4 spondylolisthesis grade I over L5. L3 retrolisthesis grade I over L4. Vertebral Bodies: Degenerative changes noted by multiple marginal osteophytes, subchondral sclerosis and facet joints arthropathy. Reduced bone density. Intervertebral Disc Spaces: Severe degenerative changes seen as multilevel decrease in disc spaces and irregularities. Soft Tissues: Paraspinal soft tissues are of normal thickness. No evidence of paraspinal soft tissue swelling or mass effect. Additional Findings: No other significant abnormalities noted. IMPRESSION: 1. Severe degenerative changes of vertebral bodies and intervertebral disc spaces with loss of disc spaces height and severe sclerosis of vertebral endplates. 2. Reduced bone density. 3. No evidence of acute fractures, or dislocations. Disclaimer: A subtle bone abnormality or fracture may not be readily apparent on X-rays, thus clinical correlation and further imaging including follow-up CT, MRI, or follow-up X-rays are advised as needed. Electronically signed by Sebastián Avitia 10-14-2024 04:19 AM
--- NOTE | 2024-10-14 04:40 | XRay Report ---
EXAM: XR hip LT 2V w pelvis CLINICAL HISTORY: LT HIP PAIN JOLTS OF PAIN LIMITED ROM JMF TECHNIQUE: X-ray images of the left hip joint and pelvis were obtained in anteroposterior (AP) projection. COMPARISON: No prior studies available for comparison. FINDINGS: Pelvic Bones: No evidence of fractures, dislocations, or significant osseous lesions. Acetabular structures appear normal and intact. No signs of acetabular fracture or dysplasia. Femoral heads are normal and centered within the acetabulum. No evidence of fractures, avascular necrosis, or significant deformities. Reduced bone density. Hip and SI Joints: Mild osteoarthritic changes of both sacroiliac joints as noted by few marginal osteophytes and subchondral sclerosis. No evidence of joint effusion or subluxation. No evidence of hip dislocation, subluxation. Preserved hip joint spaces. Symphysis Pubis: Osteiitis pubis. No evidence of separation or widening. Soft Tissues: Visualized soft tissues are normal and unremarkable. No soft tissue swelling, calcifications, or masses. Additional Findings: No other significant abnormalities noted. IMPRESSION: 1. 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 2. Reduced bone density. 3. No evidence of acute fractures, or dislocations. Disclaimer: A subtle bone abnormality or fracture may not be readily apparent on X-rays, thus clinical correlation and further imaging including follow-up CT, MRI, or follow-up X-rays are advised as needed. Electronically signed by Sebastián Avitia 10-14-2024 04:40 AM
[2024-10-14] MEDS: GABAPENTIN 100 MG CAP PO STA (05:03)
--- NOTE | 2024-10-14 05:21 | CT Scan Report ---
EXAM: CT lumbar spine wo con CLINICAL HISTORY: low back pain , left hip pain , difficulty ambulating. TECHNIQUE: CT scan of the lumbar spine was performed without the administration of intravenous contrast. Contiguous axial images were obtained from the upper lumbar spine to the sacrum. Coronal and sagittal reformatted images were also reviewed. One of the following dose reduction techniques was utilized for this exam. Automated exposure control, adjustment of the mA and/or kV according to patient size, and use of iterative reconstruction. COMPARISON: CR 10/14/2024, CT 05/20/2020. FINDINGS: Vertebrae: Moderate levoscoliosis and left lateral subluxations. Diffuse mottled osteopenia of the examined bones, with accentuated bone trabeculae. Minimal retrolisthesis of L5 over S1, L3 over L4 vertebral bodies, of degenerative aspect. Degenerative forward slippage of L4 over L5 secondary to advanced facets arthropathic changes ( degenerative spondylolisthesis). Wedged T12 vertebral body, with about 20% height reduction, no retropulsion, with intact posterior neural elements. chronic (stable). Small T12 osseous hemangioma. No acute fractures, lytic or sclerotic lesions. 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 Intervertebral Discs: Lumbar spondylotic changes manifested by anterior marginal bone hypertrophy of the opposing vertebral endplates with a reduced height of the L1/2 down to L4/5 intervertebral discs with multilevel vacuum phenomena. Multilevel Schmorl's node vertebral end plate with fine irregularities. [id number] analysis: L1-L2: Diffuse disc bulge/traction osteophyte complex measuring 2 mm, abutting the theca and causing moderate bilateral foraminal stenosis. No spinal canal stenosis.No ligamentum flavum hypertrophy and facet joint arthropathy. L2-L3: Diffuse disc bulge/traction osteophyte complex measuring 3.2 mm, indenting the theca and causing moderate bilateral foraminal stenosis. No spinal canal stenosis.No ligamentum flavum hypertrophy and facet joint arthropathy. L3-L4: Diffuse disc bulge/traction osteophyte complex measuring 5 mm, indenting the theca and causing moderate to marked left and moderate right foraminal stenosis, causing left radicular compression. Mild spinal canl stenosis. Mild ligamentum flavum hypertrophy and facet joint arthropathy. L4-L5: Diffuse disc bulge/traction osteophyte complex measuring 5.8 mm, indenting the theca and causing moderate to marked bilateral foraminal stenosis, causing left radicular compression, more on the right side. Moderate to marked spinal canal stenosis. The effect is augmented by anterolithesis, marked hypertrophic facetal arthropathy, and hypertrophied ligamenta flava. L5-S1: Diffuse disc bulge/traction osteophyte complex measuring 4.7 mm, indenting the theca and causing moderate bilateral foraminal stenosis. No spinal canal stenosis. Mild ligamentum flavum hypertrophy and facet joint arthropathy. Facet Joints: Multilevel facets arthropathic changes with degenerative foraminal narrowing and nerve root compression. Soft Tissues: Mild fatty infiltration of the paraspinal muscles. Normal appearance of the paraspinal soft tissues. No abnormal masses, fluid collections, or signs of inflammation. Aortic vascular atherosclerotic calcifications. Right adrenal calcification, is likely old granulomatous. IMPRESSION: 1. No fracture lines or dislocations. 2. Diffuse osteopenia. 3. Moderate levoscoliosis and left lateral subluxations. 4. Minimal retrolisthesis of L5 over S1, L3 over L4 vertebral bodies, of degenerative aspect. 5. Degenerative forward slippage of L4 over L5 secondary to advanced facets arthropathic changes ( degenerative spondylolisthesis). 6. Wedged T12 vertebral body, with about 20% height reduction, no retropulsion, with intact posterior neural elements. chronic (stable). 7. Lumbar spondylotic changes 8. Mutileverl diffuse disc bulges cause variable degrees of the central neural canal and encroachment upon the corresponding neural exit foramina, most evident at L4-5 level causing moderate to marked bilateral foraminal stenosis, causing left radicular compression, more on the right side and moderate to marked spinal canal stenosis. 9. Opposing facets arthropathies add to degenerative foraminal stenosis at those levels. 10. Still noted bilateral pleural effusions, need further CT chest correlation. 11. No significant interval changes. Electronically signed by Sebastián Avitia 10-14-2024 05:21 AM
--- NOTE | 2024-10-14 05:24 | CT Scan Report ---
EXAM: CT hip LT wo con CLINICAL HISTORY: low back pain , left hip pain , difficulty ambulating TECHNIQUE: Multiple, contiguous, nonenhanced CT scan of the right hip joint in axial plane with multiplanar reconstructions. One of the following dose reduction techniques was utilized for this exam: Automated exposure control, adjustment of the mA and/or kV according to patient size, and use of iterative reconstruction. CTDI: 48mGy, DLP: 1117.30mGy*cm. COMPARISON: prior CR 10/14/2024 FINDINGS: Bones: Diffuse osteopenia. Mild irregularities of the greater trochanters, likely representing ethesiopathies Normal alignment of the femoral heads, necks, and acetabula. No fractures, lytic, or sclerotic lesions. No evidence of avascular necrosis of the femoral heads. Joints: Mild arthritic changes with relatively mild narrowing of the joint space. No evidence of joint effusions or intra-articular loose bodies. Soft Tissues: Normal appearance of the soft tissues surrounding the hips. No abnormal masses, swelling, or fluid collections. Vascular calcifications. IMPRESSION: 1. No fracture lines. 2. Diffuse osteopenia. 3. 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 4. Mild irregularities of the greater trochanters, likely representing enthesopathies. 5. No significant interval changes. Electronically signed by Sebastián Avitia 10-14-2024 05:22 AM
--- NOTE | 2024-10-14 06:29 | History & Physical Report ---
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 She has difficulty with activities like lifting her leg up to get into a car, and has had more difficulties ambulating despite using a walker at home and using a cane at night to go to the bathroom. She notes that over the past 3 to 4 days she had worsening increasing sharp spasms that began in her low back area and can radiate down to her left hip and into her leg. She denies any recent trauma. Ambulatory dysfunction/progressive weakness of left lower extremity- On physical examination patient definitely has weakness on the left lower extremity Her daughter feels that this is initially began with admission for anaplasmosis treatment from 01/29-02/04/2023. Patient does use a walker and a cane at home, but has noticed progressively worsening pain in particular over the past 3 to 4 days, right-sided weakness ongoing for a number of months. A typical example is that patient is having significant difficulty lifting her leg up to get into the car. Imaging reveals the following: CT scan of left hip shows diffuse osteopenia, mild arthritic changes, mild irregularities of the greater trochanters, likely representing enthesopathies CT scan of lumbar spine shows diffuse osteopenia, moderate levoscoliosis and left lateral subluxations degenerative forward slippage of L4 over L5 secondary to advanced facet arthropathic changes. Wedge T12 vertebral body with about 20% height reduction with no retropulsion. Multilevel diffuse disc bulges most evident at L4-5 causing moderate to marked bilateral foraminal stenosis causing left radicular compression and moderate to marked spinal canal stenosis Patient will be admitted for pain management, PT/OT, orthopedic surgery consult Hypertension- continue amlodipine, carvedilol, diltiazem, hydralazine and telmisartan with hold parameters Patient would likely be most happiest if she did have to take 9 hydralazine pills daily Chronic medical issues: Anxiety depression-continue escitalopram daily, and lorazepam as needed B12 deficiency continue supplementation 1000 mcg daily CODE STATUS: Conditional code Patient does not want chest compressions, but will except pressors, and would want intubated if necessary History of Present Illness Chief Complaint: The patient presents to the emergency department due to her concerns of family concerns regarding worsening left hip pain and left leg weakness, that her daughter reports that she has been dragging somewhat ever since 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 She has difficulty with activities like lifting her leg up to get into a car, and has had more difficulties ambulating despite using a walker at home and using a cane at night to go to the bathroom. She notes that over the past 3 to 4 days she had worse issa increasing sharp spasms that began in her low back area and can radiate down to her left hip and into her leg. She denies any recent trauma. 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 She has difficulty with activities like lifting her leg up to get into a car, and has had more difficulties ambulating despite using a walker at home and using a cane at night to go to the bathroom. She notes that over the past 3 to 4 days she had worsening increasing sharp spasms that began in her low back area and can radiate down to her left hip and into her leg. She denies any recent trauma. Allergies Allergy/AdvReac Type Severity Reaction Status Date / Time No Known Drug Allergies Allergy Unknown Verified 07/14/24 12:51 Home Medications Medication Instructions Recorded Confirmed Type aspirin 81 mg tablet,delayed 81 mg PO QAM 01/06/20 10/14/24 History release acetaminophen 325 mg tablet 650 mg PO QID PRN Pain 05/20/20 10/14/24 History (Tylenol) vitamins A,C,Q-exmg-wadvfh 4,296 1 cap PO BID 07/31/22 10/14/24 History mcg-226 mg-90 mg capsule (PreserVision AREDS) mecobalamin (vitamin B12) 1,000 1,000 mcg sublingual DAILY #30 tabs 12/26/23 10/14/24 Rx mcg disintegrating tablet,sublingual diltiazem HCl 240 mg 240 mg PO QAM #90 tabs 04/20/24 10/14/24 Rx tablet,extended release 24 hr hydralazine 25 mg tablet 75 mg (3 x 25 mg) PO TID #270 tabs 05/13/24 10/14/24 Rx carvedilol 12.5 mg tablet 12.5 mg PO BID #180 tabs 07/20/24 10/14/24 Rx amlodipine 10 mg tablet 10 mg PO DAILY #90 tabs 08/17/24 10/14/24 Rx escitalopram oxalate 20 mg tablet 20 mg PO QAM #90 tabs 08/23/24 10/14/24 Rx olmesartan 40 mg tablet 40 mg PO HS #90 tabs 09/01/24 10/14/24 Rx lorazepam 0.5 mg tablet 0.5 mg PO DAILY PRN Anxiety #30 09/24/24 10/14/24 Rx tabs Past Med/Surg History Problem List (Updated 10/14/24 @ 06:41 by Patricio Chau MD) Lumbar degenerative disc disease Weakness of left lower extremity Ambulatory dysfunction (Acute) Acute pain of left hip (Acute) Hyponatremia Anxiety Dyslipidemia Hypertension Lumbar spinal stenosis Medical History Anaplasmosis Gastritis Acute Lyme disease (05/2020) Surgical History H/O hand surgery (06/2023) S/P bilateral cataract extraction (03/2022) History of skin surgery Family History Mother Hypertension Brother Lung cancer Sister Ovarian cancer Denies family history of Prostate cancer Myocardial infarction Breast cancer Colorectal cancer Social History Smoking Status: Never smoker Second Hand Exposure: No; Do You Dip or Chew Tobacco: No; Hx Alcohol Use: No Hx Substance Use: No Preferred Language: Cymro Communication Ability: Effective Visual Impairment: No Limitations Hearing Ability: Normal 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 Beliefs That Will Affect Care: None marital status: / marital status details: lost of 64 yrs Jun 2022 Current Living Situation: Alone current occupational status: other current occupation: Homemaker How many Children do You have: 5 Feels Safe at Home: Yes Childhood Exposure to Second-Hand Smoke: Yes Diet: regular Diet Comment: regular caffeine: Yes during the past year weight has: remained stable Dental Care, Regularly: No Physical Activity Frequency: Daily Seatbelt Use: always Sunscreen Use: Yes Assistive Devices: None Review of Systems Review of Systems: The patient denies chest pain, palpitations, shortness of breath, dyspnea on exertion, cough, lower extremity swelling, sore throat, fevers, chills, sweats, weight change, fatigue, nausea, vomiting, diarrhea , constipation, abdominal pain, pelvic pain, blood in urine or stool, dysuria, urinary frequency or urgency, lightheadedness, dizziness, headache, memory loss, loss of consciousness, rash, abnormal bruising or bleeding, focal or generalized weakness, numbness or tingling in arms or right leg, generalized arthralgias or myalgias, neck pain, or night sweats. The review of systems is otherwise negative other than for that already noted above, and at least 10 systems have been reviewed. Physical Exam Physical Exam: The patient is awake, alert and oriented 3, well developed and well nourished, normocephalic and atraumatic, lying in bed and in no acute distress. HEENT--PERRL, EOMI, mucous membranes and oropharynx normal. Neck--supple. No JVD. No bruits. Thyroid normal, trachea midline, no adenopathy. Heart--normal S1 and S2. No murmurs, rubs or gallops. Lungs--clear bilaterally, no respiratory distress, no accessory muscle use. Abdomen--normal bowel sounds and soft. Nontender. Nondistended, no hernias or masses, no organomegaly. Extremities--no cyanosis or clubbing. No edema. There are good distal pulses b/l. Dermatologic--normal skin turgor, normal color, no abnormal lymph nodes, no rash. Neurologic--cranial nerves II through XII grossly intact. Rheumatologic--normal range of motion on right side. Decreased ability to lift left leg off of bed due to low back and left hip pain Psychiatric--normal affect. Results & Data Results & Data Vital Signs (Past 12 Hours) Vital Signs Temp Pulse Pulse Resp BP BP Pulse Ox 10/14/24 06:00 70 18 149/79 H 94 10/14/24 05:00 70 18 126/56 L 95 10/14/24 04:00 72 18 163/71 H 94 10/14/24 04:00 74 10/14/24 02:43 80 20 180/67 H 97 10/14/24 02:09 36.9 C 89 19 150/74 H 96 O2 Del Method 10/14/24 06:00 Room Air 10/14/24 05:00 Room Air 10/14/24 04:00 Room Air 10/14/24 04:00 10/14/24 02:43 Room Air 10/14/24 02:09 Room Air Laboratory Results Impressions Hip/Pelvis X-Ray 10/14/24 02:33 EXAM: XR hip LT 2V w pelvis CLINICAL HISTORY: LT HIP PAIN JOLTS OF PAIN LIMITED ROM JMF TECHNIQUE: X-ray images of the left hip joint and pelvis were obtained in anteroposterior (AP) projection. COMPARISON: No prior studies available for comparison. FINDINGS: Pelvic Bones: No evidence of fractures, dislocations, or significant osseous lesions. Acetabular structures appear normal and intact. No signs of acetabular fracture or dysplasia. Femoral heads are normal and centered within the acetabulum. No evidence of fractures, avascular necrosis, or significant deformities. Reduced bone density. Hip and SI Joints: Mild osteoarthritic changes of both sacroiliac joints as noted by few marginal osteophytes and subchondral sclerosis. No evidence of joint effusion or subluxation. No evidence of hip dislocation, subluxation. Preserved hip joint spaces. Symphysis Pubis: Osteiitis pubis. No evidence of separation or widening. Soft Tissues: Visualized soft tissues are normal and unremarkable. No soft tissue swelling, calcifications, or masses. Additional Findings: No other significant abnormalities noted. IMPRESSION: 1. 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 2. Reduced bone density. 3. No evidence of acute fractures, or dislocations. Disclaimer: A subtle bone abnormality or fracture may not be readily apparent on X-rays, thus clinical correlation and further imaging including follow-up CT, MRI, or follow-up X-rays are advised as needed. Electronically signed by Sebastián Avitia 10-14-2024 04:40 AM Lumbar Spine X-Ray 10/14/24 02:33 EXAM: XR lumbar spine 2-3V CLINICAL HISTORY: LEFT HIP PAIN JOLTS OF PAIN LIMITED ROM JMF TECHNIQUE: X-ray images of the lumbar spine were obtained in anteroposterior (AP), LS spot and lateral projections. COMPARISON: No prior studies available for comparison. FINDINGS: Alignment: Abnormal alignment, with multiple lateral tilt of vertebral bodies. L4 spondylolisthesis grade I over L5. L3 retrolisthesis grade I over L4. Vertebral Bodies: Degenerative changes noted by multiple marginal osteophytes, subchondral sclerosis and facet joints arthropathy. Reduced bone density. Intervertebral Disc Spaces: Severe degenerative changes seen as multilevel decrease in disc spaces and irregularities. Soft Tissues: Paraspinal soft tissues are of normal thickness. No evidence of paraspinal soft tissue swelling or mass effect. Additional Findings: No other significant abnormalities noted. IMPRESSION: 1. Severe degenerative changes of vertebral bodies and intervertebral disc spaces with loss of disc spaces height and severe sclerosis of vertebral endplates. 2. Reduced bone density. 3. No evidence of acute fractures, or dislocations. Disclaimer: A subtle bone abnormality or fracture may not be readily apparent on X-rays, thus clinical correlation and further imaging including follow-up CT, MRI, or follow-up X-rays are advised as needed. Electronically signed by Sebastián Avitia 10-14-2024 04:[address] 10/14/24 03:43 EXAM: CT hip LT wo con CLINICAL HISTORY: low back pain , left hip pain , difficulty ambulating TECHNIQUE: Multiple, contiguous, nonenhanced CT scan of the right hip joint in axial plane with multiplanar reconstructions. One of the following dose reduction techniques was utilized for this exam: Automated exposure control, adjustment of the mA and/or kV according to patient size, and use of iterative reconstruction. CTDI: 48mGy, DLP: 1117.30mGy*cm. COMPARISON: prior CR 10/14/2024 FINDINGS: Bones: Diffuse osteopenia. Mild irregularities of the greater trochanters, likely representing ethesiopathies Normal alignment of the femoral heads, necks, and acetabula. No fractures, lytic, or sclerotic lesions. No evidence of avascular necrosis of the femoral heads. Joints: Mild arthritic changes with relatively mild narrowing of the joint space. No evidence of joint effusions or intra-articular loose bodies. Soft Tissues: Normal appearance of the soft tissues surrounding the hips. No abnormal masses, swelling, or fluid collections. Vascular calcifications. IMPRESSION: 1. No fracture lines. 2. Diffuse osteopenia. 3. 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 4. Mild irregularities of the greater trochanters, likely representing enthesopathies. 5. No significant interval changes. Electronically signed by Sebastián Avitia 10-14-2024 05:[address] 10/14/24 03:43 EXAM: CT lumbar spine wo con CLINICAL HISTORY: low back pain , left hip pain , difficulty ambulating. TECHNIQUE: CT scan of the lumbar spine was performed without the administration of intravenous contrast. Contiguous axial images were obtained from the upper lumbar spine to the sacrum. Coronal and sagittal reformatted images were also reviewed. One of the following dose reduction techniques was utilized for this exam. Automated exposure control, adjustment of the mA and/or kV according to patient size, and use of iterative reconstruction. COMPARISON: CR 10/14/2024, CT 05/20/2020. FINDINGS: Vertebrae: Moderate levoscoliosis and left lateral subluxations. Diffuse mottled osteopenia of the examined bones, with accentuated bone trabeculae. Minimal retrolisthesis of L5 over S1, L3 over L4 vertebral bodies, of degenerative aspect. Degenerative forward slippage of L4 over L5 secondary to advanced facets arthropathic changes ( degenerative spondylolisthesis). Wedged T12 vertebral body, with about 20% height reduction, no retropulsion, with intact posterior neural elements. chronic (stable). Small T12 osseous hemangioma. No acute fractures, lytic or sclerotic lesions. 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 Intervertebral Discs: Lumbar spondylotic changes manifested by anterior marginal bone hypertrophy of the opposing vertebral endplates with a reduced height of the L1/2 down to L4/5 intervertebral discs with multilevel vacuum phenomena. Multilevel Schmorl's node vertebral end plate with fine irregularities. [id number]-[id number]-hquaz analysis: L1-L2: Diffuse disc bulge/traction osteophyte complex measuring 2 mm, abutting the theca and causing moderate bilateral foraminal stenosis. No spinal canal stenosis.No ligamentum flavum hypertrophy and facet joint arthropathy. L2-L3: Diffuse disc bulge/traction osteophyte complex measuring 3.2 mm, indenting the theca and causing moderate bilateral foraminal stenosis. No spinal canal stenosis.No ligamentum flavum hypertrophy and facet joint arthropathy. L3-L4: Diffuse disc bulge/traction osteophyte complex measuring 5 mm, indenting the theca and causing moderate to marked left and moderate right foraminal stenosis, causing left radicular compression. Mild spinal canl stenosis. Mild ligamentum flavum hypertrophy and facet joint arthropathy. L4-L5: Diffuse disc bulge/traction osteophyte complex measuring 5.8 mm, indenting the theca and causing moderate to marked bilateral foraminal stenosis, causing left radicular compression, more on the right side. Moderate to marked spinal canal stenosis. The effect is augmented by anterolithesis, marked hypertrophic facetal arthropathy, and hypertrophied ligamenta flava. L5-S1: Diffuse disc bulge/traction osteophyte complex measuring 4.7 mm, indenting the theca and causing moderate bilateral foraminal stenosis. No spinal canal stenosis. Mild ligamentum flavum hypertrophy and facet joint arthropathy. Facet Joints: Multilevel facets arthropathic changes with degenerative foraminal narrowing and nerve root compression. Soft Tissues: Mild fatty infiltration of the paraspinal muscles. Normal appearance of the paraspinal soft tissues. No abnormal masses, fluid collections, or signs of inflammation. Aortic vascular atherosclerotic calcifications. Right adrenal calcification, is likely old granulomatous. IMPRESSION: 1. No fracture lines or dislocations. 2. Diffuse osteopenia. 3. Moderate levoscoliosis and left lateral subluxations. 4. Minimal retrolisthesis of L5 over S1, L3 over L4 vertebral bodies, of degenerative aspect. 5. Degenerative forward slippage of L4 over L5 secondary to advanced facets arthropathic changes ( degenerative spondylolisthesis). 6. Wedged T12 vertebral body, with about 20% height reduction, no retropulsion, with intact posterior neural elements. chronic (stable). 7. Lumbar spondylotic changes 8. Mutileverl diffuse disc bulges cause variable degrees of the central neural canal and encroachment upon the corresponding neural exit foramina, most evident at L4-5 level causing moderate to marked bilateral foraminal stenosis, causing left radicular compression, more on the right side and moderate to marked spinal canal stenosis. 9. Opposing facets arthropathies add to degenerative foraminal stenosis at those levels. 10. Still noted bilateral pleural effusions, need further CT chest correlation. 11. No significant interval changes. Electronically signed by Sebastián Avitia 10-14-2024 05:21 AM Code Status & VTE Plan Code Status Conditional code No chest compressions otherwise full resuscitation and intubation PG Care Time/CCT Total # of Minutes Spent Total Time Spent with Patient: Total time spent is greater than 50% in coordination of care (as documented) at patient's floor/unit and/or counseling patient: Coding Level of Care Code 83098 INT INP/OBS CARE 3/75MIN Diagnoses Ambulatory dysfunction R26.2 Acute pain of left hip M25.552 Weakness of left lower extremity R29.898 Lumbar spinal stenosis M48.061
[2024-10-14 07:19] LABS: Alanine Aminotransferase 10 U/L (7-52); Albumin Globulin Ratio 1.5 (0.9-2); Albumin Level 3.8 gm/dl (3.4-5.0); Alkaline Phosphatase 74 U/L (34-104); Anion Gap 6 (3-11); Aspartate Aminotransferase 17 U/L (13-39); BUN Creatinine Ratio 27.5 (10-20); Bilirubin,Total 0.6 mg/dl (0.2-1.0); Blood Urea Nitrogen 22 mg/dl (6-23); Calcium 9.2 mg/dl (8.6-10.3); Carbon Dioxide 26 mmol/L (21-32); Chloride 105 mmol/L (98-107); Globulin 2.6 gm/dl (2.5-4.0); Glucose 115 mg/dl (70-99(Fasting)); Magnesium 2.1 mg/dl (1.7-2.4); Potassium 3.9 mmol/L (3.5-5.1); Sodium 137 mmol/L (136-145); Total Protein 6.4 gm/dl (6.0-8.3)
[2024-10-14 08:00] LABS: Hematocrit (blood only) 33.5 % (37.0-47.0); Hemoglobin 11.6 g/dl (12.0-16.0); Mean Corpuscular Hemoglobin 31.3 pg (25.0-34.0); Mean Corpuscular Hgb Conc 34.6 g/dL (32.0-36.0); Mean Corpuscular Volume 90.3 fL (80.0-100.0); Mean Platelet Volume 12.2 fL (9.4-12.4); Platelet Count 160 K/uL (130-400); RDW Coefficient of Variation 12.6 % (11.5-14.5); RDW Standard Deviation 41.1 fL (36.4-46.3); Red Blood Count 3.71 M/uL (4.20-5.40); White Blood Count 8.67 K/ul (4.8-10.8)
[2024-10-14 08:01] LABS: Agglutinated RBC 1+; Basophils # (auto) 0.04 K/uL (0.00-0.20); Basophils % (auto) 0.5 %; Eosinophils # (auto) 0.13 K/uL (0.00-0.50); Eosinophils % (auto) 1.5 %; Immature Granulocytes # (auto) 0.02 K/uL (0.01-0.20); Immature Granulocytes % (auto) 0.2 %; Lymphocytes # (auto) 1.64 K/uL (1.20-3.40); Lymphocytes % (auto) 18.9 %; Monocytes # (auto) 0.85 K/uL (0.11-0.59); Monocytes % (auto) 9.8 %; Neutrophils # (auto) 5.99 K/uL (1.40-6.50); Neutrophils % (auto) 69.1 %
[2024-10-14] MEDS: oxyCODONE HCL IR 5 MG TAB (IMMEDIATE RELEASE) PO PRN (08:35)
[2024-10-14] MEDS ORDERED: LORazepam 0.5 MG TAB PO PRN (09:31)
[2024-10-14] MEDS: carvediloL 12.5 MG TAB PO SCH (10:47)
[2024-10-14] MEDS: amLODIPine BESYLATE 5 MG TAB PO SCH (10:47)
[2024-10-14] MEDS: ASPIRIN 81 MG ECTAB PO SCH (10:47)
[2024-10-14] MEDS: hydrALAZINE HCL 25 MG TAB PO SCH (10:48)
[2024-10-14] MEDS: CYANOCOBALAMIN (B-12) 500 MCG TABLET PO SCH (10:48)
[2024-10-14] MEDS: ESCITALOPRAM OXALATE 20 MG TAB PO SCH (10:48)
[2024-10-14] MEDS: dilTIAZem HCL 240 MG CAPCR PO SCH (10:48)
--- NOTE | 2024-10-14 14:37 | Communication Note ---
Date of Service: October 14, 2024 Please refer to the H&P dictated earlier this morning for details of presentation on admission. In brief, the patient presented with worsening left hip pain and worsening left-sided weakness, ambulatory dysfunction. CT findings reviewed. Patient was admitted for orthospine consulted, physical therapy and pain management.
[2024-10-14] MEDS: LOSARTAN POTASSIUM 50 MG TAB PO SCH (21:22)
--- NOTE | 2024-10-14 21:29 | Magnetic Resonance Report ---
Exam(s): MRI L SPINE Without Contrast EXAM: MR Lumbar Spine Without Intravenous Contrast CLINICAL HISTORY: Reason for exam: leg pain and weakness. TECHNIQUE: Magnetic resonance images of the lumbar spine without intravenous contrast in multiple planes. COMPARISON: Prior CT scan of the lumbar spine from October 14, 2024. FINDINGS: This study is limited secondary to motion artifact. Vertebrae: There are 5 lumbar type vertebral bodies with a mild levoscoliosis and shallow lumbar lordosis. There is a mild grade 1 retrolisthesis of L2 and L3 measuring 2 mm, retrolisthesis of L3 and L4 measuring 2 mm and anterolisthesis of L4 and L5 measuring 2 mm. Otherwise, there is normal vertebral body height and alignment. The bone marrow signal is heterogeneous with reactive endplate changes. No acute fracture. Positive [place] sign at L4-5. The left L5 transverse process articulates with the sacrum forming a pseudoarthrosis. Spinal cord: The conus is normal size, shape and signal characteristics, terminating at T12-L1. Normal signal. Soft tissues: Advanced atrophy of the iliopsoas, paraspinous intraspinous musculature. The aorta and IVC flow voids are intact. The visualized kidneys are unremarkable. DISCS/SPINAL CANAL/NEURAL FORAMINA: L1-L2: Moderate disc degeneration with annular disc bulge causing a mild subarticular recess stenosis with disc extending to the neural foramina without impingement or significant stenosis. There is mild facet joint arthropathy with mild synovitis. L2-L3: Moderate disc degeneration with annular disc bulge causing a mild subarticular recess stenosis with superimposed spondylolisthesis and congenitally short pedicles causing a moderate spinal canal stenosis with thecal sac and hemorrhage and 0.75 cm. There is disc and osteophyte extending to the neural foramina causing a mild left stenosis without evidence of neural impingement. There is mild facet arthropathy with mild synovitis. L3-L4: Moderate disc degeneration with annular disc bulge asymmetric to the left causing a mild subarticular recess stenosis with superimposed spondylolisthesis and congenitally short pedicles causing a mild spinal canal stenosis with thecal sac and hemorrhage and 0.85 cm. There is disc and osteophyte extending to the neural foramina causing mild bilateral stenosis without evidence of neural impingement. There is mild facet joint arthropathy with mild synovitis. L4-L5: Moderate disc degeneration with annular disc bulge causing a mild subarticular recess stenosis with superimposed spondylolisthesis, congenitally short pedicles and facet joint arthropathy causing a moderately severe spinal canal stenosis with thecal sac and hemorrhage and 0.53 cm. There is disc and osteophyte extending to the neural foramina causing a moderate right and moderately severe left stenosis with impingement of the bilateral L4 nerve root ganglia. Moderate to advanced facet joint arthropathy with mild synovitis. L5-S1: Moderate disc degeneration with posterior disc osteophyte complex causing a mild subarticular recess stenosis with disc and osteophyte extending to the neural foramina causing mild bilateral stenosis without evidence of neural impingement. There is mild facet joint arthropathy with mild synovitis. IMPRESSION: 1. Moderate disc degeneration at L1-L2 through L5-S1 with annular disc bulging or posterior disc osteophyte complex causing a mild subarticular recess stenosis without evidence of neural impingement. There is moderate bone marrow edema at the endplates of L2-3, which may be causing a central discogenic type lower back pain. 2. There is a moderately severe spinal canal stenosis at L4-5, moderate stenosis at L2-3 and mild stenosis at L3-4. 3. There is a mild left L2-3, mild bilateral L3-4, moderate right and moderately severe left L4-5 and mild bilateral L5-S1 neural foraminal stenosis with impingement of the bilateral L4 nerve or ganglia. 4. There is mild to advanced facet joint arthropathy with mild synovitis. 5. No evidence of fracture, infection, tumor or arachnoiditis. 6. Possible [place] syndrome at L4-5. Electronically signed by: Yoli Pierce MD 10/14/24 21:28 PM
[2024-10-14] MEDS: ACETAMINOPHEN 325 MG TAB PO PRN (22:08)
[2024-10-15 07:38] LABS: BUN Creatinine Ratio 29.1 (10-20); Calcium 8.9 mg/dl (8.6-10.3); Creatinine Clr Calc Pharmacy 45.1 ml/min; Magnesium 2.1 mg/dl (1.7-2.4); Potassium 3.9 mmol/L (3.5-5.1)
[2024-10-15 07:58] LABS: Agglutinated RBC 1+; Basophils # (auto) 0.06 K/uL (0.00-0.20); Basophils % (auto) 0.8 %; Eosinophils # (auto) 0.28 K/uL (0.00-0.50); Eosinophils % (auto) 3.5 %; Hematocrit (blood only) 34.5 % (37.0-47.0); Hemoglobin 11.6 g/dl (12.0-16.0); Immature Granulocytes # (auto) 0.01 K/uL (0.01-0.20); Immature Granulocytes % (auto) 0.1 %; Lymphocytes % (auto) 22.5 %; Mean Corpuscular Hemoglobin 30.4 pg (25.0-34.0); Mean Corpuscular Hgb Conc 33.6 g/dL (32.0-36.0); Mean Corpuscular Volume 90.3 fL (80.0-100.0); Mean Platelet Volume 11.8 fL (9.4-12.4); Monocytes # (auto) 0.99 K/uL (0.11-0.59); Monocytes % (auto) 12.4 %; Neutrophils # (auto) 4.85 K/uL (1.40-6.50); Neutrophils % (auto) 60.7 %; Platelet Count 190 K/uL (130-400); RDW Coefficient of Variation 12.7 % (11.5-14.5); RDW Standard Deviation 41.9 fL (36.4-46.3); Red Blood Count 3.82 M/uL (4.20-5.40); White Blood Count 7.99 K/ul (4.8-10.8)
--- NOTE | 2024-10-15 08:44 | Orthopedic Consultation ---
Date of Consultation October 15, 2024 Assessment & Plan (1) Multilevel lumbosacral spondylosis with radiculopathy: Patient's MRI does demonstrate multilevel spondylosis with spondylolisthesis L4- 5. There is evidence of significant neural compression most notable at L4-L5. This could be consistent with her clinical presentation. In her age I would like to avoid any surgical intervention. I would recommend consultation with interventional pain management for diagnostic therapeutic injections and to continue physical therapy. History of Present Illness Reason for Consultation: Left leg pain with weakness Attending Physician: Candido Burgos MD History of Present Illness This is a very pleasant 89-year-old female presents yesterday with worsening left leg pain. She states is markedly limits her ability to transfer from bed to chair chair to feet. Ambulation is tolerable but limited and she must use a walker. She denies any precipitating trauma fall or event. She states she underwent physical therapy several months ago without marked improvement. Describes pain involving the calf foot region up to the knee. She states extends to the buttock on the left. The right lower extremity is asymptomatic. She notes weakness to the left lower extremity. Allergies Allergy/AdvReac Type Severity Reaction Status Date / Time No Known Drug Allergies Allergy Unknown Verified 07/14/24 12:51 Home Medications Medication Instructions Recorded Confirmed Type aspirin 81 mg tablet,delayed 81 mg PO QAM 01/06/20 10/14/24 History release acetaminophen 325 mg tablet 650 mg PO QID PRN Pain 05/20/20 10/14/24 History (Tylenol) vitamins A,C,A-vogj-irbieo 4,296 1 cap PO BID 07/31/22 10/14/24 History mcg-226 mg-90 mg capsule (PreserVision AREDS) mecobalamin (vitamin B12) 1,000 1,000 mcg sublingual DAILY #30 tabs 12/26/23 10/14/24 Rx mcg disintegrating tablet,sublingual diltiazem HCl 240 mg 240 mg PO QAM #90 tabs 04/20/24 10/14/24 Rx tablet,extended release 24 hr hydralazine 25 mg tablet 75 mg (3 x 25 mg) PO TID #270 tabs 05/13/24 10/14/24 Rx carvedilol 12.5 mg tablet 12.5 mg PO BID #180 tabs 07/20/24 10/14/24 Rx amlodipine 10 mg tablet 10 mg PO DAILY #90 tabs 08/17/24 10/14/24 Rx escitalopram oxalate 20 mg tablet 20 mg PO QAM #90 tabs 08/23/24 10/14/24 Rx olmesartan 40 mg tablet 40 mg PO HS #90 tabs 09/01/24 10/14/24 Rx lorazepam 0.5 mg tablet 0.5 mg PO DAILY PRN Anxiety #30 09/24/24 10/14/24 Rx tabs Patient History Medical History Anaplasmosis Gastritis Acute Lyme disease (05/2020) Surgical History H/O hand surgery (06/2023) S/P bilateral cataract extraction (03/2022) History of skin surgery Family History Mother Hypertension Brother Lung cancer Sister Ovarian cancer Denies family history of Prostate cancer Myocardial infarction Breast cancer Colorectal cancer Social History Smoking Status: Never smoker Second Hand Exposure: No; Do You Dip or Chew Tobacco: No; Hx Alcohol Use: Yes Alcohol type: wine Hx Substance Use: No Preferred Language: Moroccan Communication Ability: Effective Visual Impairment: No Limitations Hearing Ability: Normal Night Coordinator Required: No Beliefs That Will Affect Care: None marital status: / marital status details: lost of 62 yrs Jun 2022 Current Living Situation: Alone current occupational status: other current occupation: Homemaker How many Children do You have: 5 Feels Safe at Home: Yes Childhood Exposure to Second-Hand Smoke: Yes Diet: regular Diet Comment: regular caffeine: Yes during the past year weight has: remained stable Dental Care, Regularly: No Physical Activity Frequency: Daily Seatbelt Use: always Sunscreen Use: Yes Assistive Devices: Glasses and Walker Physical Exam Physical Exam: Patient is currently in bed. She is cooperative. She exhibits 4/5 left dors iflexion extensor hallux longus compared to 5 4 on the right. She is hesitant to range of motion the left lower extremity saying it is uncomfortable. She has superficial tenderness to palpation of the calf on the left knee. Results & Data Vital Signs (Past 12 Hours) Vital Signs Temp Pulse Resp BP Pulse Ox O2 Del Method 10/15/24 07:17 36.8 C 68 16 151/63 H 94 Room Air
--- NOTE | 2024-10-15 13:28 | Hospitalist Progress Note ---
Date of Service October 15, 2024 Assessment & Plan (1) Ambulatory dysfunction: (2) Acute pain of left hip: (3) Weakness of left lower extremity: (4) Lumbar spinal stenosis: Plan The patient is an 89-year-old female with a past medical history including hypertension, anxiety with depression, B12 deficiency, ambulatory dysfunction, and lumbar spinal stenosis.The patient presents to the emergency department due to her concerns of family concerns regarding worsening left hip pain and left leg weakness, that her daughter reports that she has been dragging somewhat ever since 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 She has difficulty with activities like lifting her leg up to get into a car, and has had more difficulties ambulating despite using a walker at home and using a cane at night to go to the bathroom. She notes that over the past 3 to 4 days she had worsening increasing sharp spasms that began in her low back area and can radiate down to her left hip and into her leg. She denies any recent trauma. Ambulatory dysfunction/progressive weakness of left lower extremity- CT scan of the lumbar spine shows spondylosis and spondylolisthesis at L4/5 Orthospine consulted. At her age, surgery should be avoided. Consult pain management PT/OT involved Hypertension- continue amlodipine, carvedilol, diltiazem, hydralazine and telmisartan with hold parameters Chronic medical issues: Anxiety depression-continue escitalopram daily, and lorazepam as needed B12 deficiency continue supplementation 1000 mcg daily CODE STATUS: Conditional code Patient does not want chest compressions, but will except pressors, and would want intubated if necessary Admission and Anticipated Discharge Date Admission Date: October 14, 2024 Subjective Patient was seen and examined at 10:15 AM. She was accompanied by her oldest son at the bedside. She stated that her pain is controlled when she is in her bed. It starts to hurt when she tries to get out of bed. Review of Systems Review of Systems: All systems reviewed & are unremarkable except as noted in Subjective Physical Exam Physical Exam: General: Awake, conversant Heart: S1, S2/regular rate and rhythm, no murmur rubs or gallops Lungs: Clear to auscultation bilaterally. Normal effort Abdomen: Soft/nontender/nondistended. No hepatosplenomegaly Extremities: No clubbing/cyanosis. No edema Behavior: Appropriate, cooperative Results & Data Results & Data Vital Signs (Past 12 Hours) Vital Signs Temp Pulse Resp BP Pulse Ox O2 Del Method 10/15/24 07:17 36.8 C 68 16 151/63 H 94 Room Air Laboratory Results Abnormal lab results 10/15/24 Range/Units 06:57 RBC 3.82 L (4.20-5.40) M/uL Hgb 11.6 L (12.0-16.0) g/dl Hct 34.5 L (37.0-47.0) % Mathews # (Auto) 0.99 H (0.11-0.59) K/uL BUN/Creatinine Ratio 29.1 H (10-20) Glucose 107 H (70-99(Fasting)) mg/dl PG Care Time/CCT Total # of Minutes Spent Total Time Spent with Patient: Total time spent is greater than 50% in coordination of care (as documented) at patient's floor/unit and/or counseling patient: Coding Level of Care Code 73865 SUB INP/OBS CARE 2/35MIN Diagnoses Ambulatory dysfunction R26.2 Acute pain of left hip M25.552 Weakness of left lower extremity R29.898 Lumbar spinal stenosis M48.061
[2024-10-15] MEDS: DICLOFENAC SOD 1% GEL 100 GM TUBE EXT PRN (20:19)
--- NOTE | 2024-10-16 12:56 | Pain Management Consultation ---
Date of Consultation October 16, 2024 Assessment & Plan (1) Lumbar spinal stenosis: Neurogenic claudication status: with neurogenic claudication Qualified Code(s): M48.062 - Spinal stenosis, lumbar region with neurogenic claudication (2) Weakness of left lower extremity: Plan 1. We have discussed pursuing a left L4-L5 transforaminal epidural steroid injection. Risks and benefits were reviewed with the patient and she is understanding. She would like to proceed with the procedure. I did ask the patient if she would be comfortable for discharge and we could do the injection on an outpatient basis on Saturday. Patient does not feel comfortable with discharge as we have discussed pursuing the procedure on an inpatient basis on Saturday at [address] Anne. We have discussed preprocedural instructions including no food or drink for 6 hours before, and no ibuprofen or aspirin for 24 hours prior. Patient is understanding of the instructions. 2. Recommend continuation of physical therapy 3. Continue current medication regimen. History of Present Illness Reason for Consultation: Back pain Attending Physician: Candido Burgos MD History of Present Illness This is an 89-year-old female that has been seen in the [facility] for lumbar radiculopathy and left leg weakness. She states that the pain started abruptly on Saturday when she was positioning herself to lay down in bed. She is experiencing significant pain along the low back radiating along the left leg in an L5 distribution to the foot. Last year she had and admission for anaplasmosis and states that the left leg started feeling slightly weaker than the right but it significantly worsened this week. She is finding herself dragging the left foot when trying to ambulate. Over the past several days the low back pain has subsided. She continues to experience a sharp pain in the left hip radiating to the knee with standing, walking, lifting the left leg. She Has taken oxycodone 5 mg once 2 days ago and is now taking Tylenol instead. She does continue to experience significant weakness in the left leg. Patient was evaluated by spine surgery and surgery was not recommended particularly with her age. she does have bladder incontinence, unchanged. No bowel incontinence, saddle anesthesia, falls. Case discussed with Dr. Geri Anne Allergies Allergy/AdvReac Type Severity Reaction Status Date / Time No Known Drug Allergies Allergy Unknown Verified 07/14/24 12:51 Home Medications Medication Instructions Recorded Confirmed Type aspirin 81 mg tablet,delayed 81 mg PO QAM 01/06/20 10/14/24 History release acetaminophen 325 mg tablet 650 mg PO QID PRN Pain 05/20/20 10/14/24 History (Tylenol) vitamins A,C,E-gnbl-zsljpt 4,296 1 cap PO BID 07/31/22 10/14/24 History mcg-226 mg-90 mg capsule (PreserVision AREDS) mecobalamin (vitamin B12) 1,000 1,000 mcg sublingual DAILY #30 tabs 12/26/23 10/14/24 Rx mcg disintegrating tablet,sublingual diltiazem HCl 240 mg 240 mg PO QAM #90 tabs 04/20/24 10/14/24 Rx tablet,extended release 24 hr hydralazine 25 mg tablet 75 mg (3 x 25 mg) PO TID #270 tabs 05/13/24 10/14/24 Rx carvedilol 12.5 mg tablet 12.5 mg PO BID #180 tabs 07/20/24 10/14/24 Rx amlodipine 10 mg tablet 10 mg PO DAILY #90 tabs 08/17/24 10/14/24 Rx escitalopram oxalate 20 mg tablet 20 mg PO QAM #90 tabs 08/23/24 10/14/24 Rx olmesartan 40 mg tablet 40 mg PO HS #90 tabs 09/01/24 10/14/24 Rx lorazepam 0.5 mg tablet 0.5 mg PO DAILY PRN Anxiety #30 09/24/24 10/14/24 Rx tabs Patient History Medical History Anaplasmosis Gastritis Acute Lyme disease (05/2020) Surgical History H/O hand surgery (06/2023) L hand post fracture S/P bilateral cataract extraction (03/2022) History of skin surgery 1986 Family History Mother Hypertension Brother Lung cancer Sister Ovarian cancer Denies family history of Prostate cancer Myocardial infarction Breast cancer Colorectal cancer Social History Smoking Status: Never smoker Second Hand Exposure: No; Do You Dip or Chew Tobacco: No; Hx Alcohol Use: Yes Alcohol type: wine Hx Substance Use: No Preferred Language: Azeri Communication Ability: Effective Visual Impairment: No Limitations Hearing Ability: Normal Auto Battery Builder Required: No Beliefs That Will Affect Care: None marital status: / marital status details: lost of 62 yrs Jun 2022 Current Living Situation: Alone current occupational status: other current occupation: Homemaker How many Children do You have: 5 Feels Safe at Home: Yes Childhood Exposure to Second-Hand Smoke: Yes Diet: regular Diet Comment: regular caffeine: Yes during the past year weight has: remained stable Dental Care, Regularly: No Physical Activity Frequency: Daily Seatbelt Use: always Sunscreen Use: Yes Assistive Devices: Glasses and Walker Physical Exam Physical Exam: GENERAL: This is a pleasant 89 year old female in no acute distress. HEAD/FACE: Normocephalic and atraumatic. EYES: No drainage or conjunctival injection. ENT: Nose without bleeding or discharge. Oral mucosa moist. NECK: Full ROM without apparent pain. No swelling or masses noted. RESPIRATORY: Patient with unlabored breathing. No signs of respiratory distress. CHEST/AXILLA: Chest movement symmetrical. No deformities noted. ABDOMEN/GI: No distension BACK: Mild loss of lumbar lordosis. No midline, facet joint, SI joint tenderness. No myofascial spasm or trigger points noted. SKIN: [place], warm and dry. No rash noted. MS/EXTREMITY: 3/5 strength of the left lower extremity throughout. 5/5 strength of the right lower extremity throughout. No tenderness of the greater trochanteric bursa. Full range of motion of the left hip and knee. NEURO: Alert and appears oriented. Speech is fluent. Cranial Nerves are grossly intact. PSYCH: Alert, pleasant, affect is calm Results (Pain Clinic) Diagnostic Review MRI Findings: Exam(s): MRI L SPINE Without Contrast EXAM: MR Lumbar Spine Without Intravenous Contrast CLINICAL HISTORY: Reason for exam: leg pain and weakness. TECHNIQUE: Magnetic resonance images of the lumbar spine without intravenous contrast in multiple planes. COMPARISON: Prior CT scan of the lumbar spine from October 14, 2024. FINDINGS: This study is limited secondary to motion artifact. Vertebrae: There are 5 lumbar type vertebral bodies with a mild levoscoliosis and shallow lumbar lordosis. There is a mild grade 1 retrolisthesis of L2 and L3 measuring 2 mm, retrolisthesis of L3 and L4 measuring 2 mm and anterolisthesis of L4 and L5 measuring 2 mm. Otherwise, there is normal vertebral body height and alignment. The bone marrow signal is heterogeneous with reactive endplate changes. No acute fracture. 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 The left L5 transverse process articulates with the sacrum forming a pseudoarthrosis. Spinal cord: The conus is normal size, shape and signal characteristics, terminating at T12-L1. Normal signal. Soft tissues: Advanced atrophy of the iliopsoas, paraspinous intraspinous musculature. The aorta and IVC flow voids are intact. The visualized kidneys are unremarkable. DISCS/SPINAL CANAL/NEURAL FORAMINA: L1-L2: Moderate disc degeneration with annular disc bulge causing a mild subarticular recess stenosis with disc extending to the neural foramina without impingement or significant stenosis. There is mild facet joint arthropathy with mild synovitis. L2-L3: Moderate disc degeneration with annular disc bulge causing a mild subarticular recess stenosis with superimposed spondylolisthesis and congenitally short pedicles causing a moderate spinal canal stenosis with thecal sac and hemorrhage and 0.75 cm. There is disc and osteophyte extending to the neural foramina causing a mild left stenosis without evidence of neural impingement. There is mild facet arthropathy with mild synovitis. L3-L4: Moderate disc degeneration with annular disc bulge asymmetric to the left causing a mild subarticular recess stenosis with superimposed spondylolisthesis and congenitally short pedicles causing a mild spinal canal stenosis with thecal sac and hemorrhage and 0.85 cm. There is disc and osteophyte extending to the neural foramina causing mild bilateral stenosis without evidence of neural impingement. There is mild facet joint arthropathy with mild synovitis. L4-L5: Moderate disc degeneration with annular disc bulge causing a mild subarticular recess stenosis with superimposed spondylolisthesis, congenitally short pedicles and facet joint arthropathy causing a moderately severe spinal canal stenosis with thecal sac and hemorrhage and 0.53 cm. There is disc and osteophyte extending to the neural foramina causing a moderate right and moderately severe left stenosis with impingement of the bilateral L4 nerve root ganglia. Moderate to advanced facet joint arthropathy with mild synovitis. L5-S1: Moderate disc degeneration with posterior disc osteophyte complex causing a mild subarticular recess stenosis with disc and osteophyte extending to the neural foramina causing mild bilateral stenosis without evidence of neural impingement. There is mild facet joint arthropathy with mild synovitis. IMPRESSION: 1. Moderate disc degeneration at L1-L2 through L5-S1 with annular disc bulging or posterior disc osteophyte complex causing a mild subarticular recess stenosis without evidence of neural impingement. There is moderate bone marrow edema at the endplates of L2-3, which may be causing a central discogenic type lower back pain. 2. There is a moderately severe spinal canal stenosis at L4-5, moderate stenosis at L2-3 and mild stenosis at L3-4. 3. There is a mild left L2-3, mild bilateral L3-4, moderate right and moderately severe left L4-5 and mild bilateral L5-S1 neural foraminal stenosis with impingement of the bilateral L4 nerve or ganglia. 4. There is mild to advanced facet joint arthropathy with mild synovitis. 5. No evidence of fracture, infection, tumor or arachnoiditis. 6. 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 Electronically signed by: Yoli Pierce MD 10/14/24 21:28 PM
--- NOTE | 2024-10-16 14:20 | Hospitalist Progress Note ---
Date of Service October 16, 2024 Assessment & Plan (1) Ambulatory dysfunction: (2) Acute pain of left hip: (3) Weakness of left lower extremity: (4) Lumbar spinal stenosis: Plan The patient is an 89-year-old female with a past medical history including hypertension, anxiety with depression, B12 deficiency, ambulatory dysfunction, and lumbar spinal stenosis.The patient presents to the emergency department due to her concerns of family concerns regarding worsening left hip pain and left leg weakness, that her daughter reports that she has been dragging somewhat ever since 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 She has difficulty with activities like lifting her leg up to get into a car, and has had more difficulties ambulating despite using a walker at home and using a cane at night to go to the bathroom. She notes that over the past 3 to 4 days she had worsening increasing sharp spasms that began in her low back area and can radiate down to her left hip and into her leg. She denies any recent trauma. Ambulatory dysfunction/progressive weakness of left lower extremity- CT scan of the lumbar spine shows spondylosis and spondylolisthesis at L4/5 Orthospine consulted. At her age, surgery should be avoided. Pain management consulted. They plan to pursue a L4-L5 transforaminal epidural steroid injection on Thursday 10/19 while inpatient PT/OT involved Hypertension- continue amlodipine, carvedilol, diltiazem, hydralazine and telmisartan with hold parameters Chronic medical issues: Anxiety depression-continue escitalopram daily, and lorazepam as needed B12 deficiency continue supplementation 1000 mcg daily CODE STATUS: Conditional code Patient does not want chest compressions, but will except pressors, and would want intubated if necessary Admission and Anticipated Discharge Date Admission Date: October 14, 2024 Subjective Patient was seen and examined at 10:30 AM. She denies any pain while she is laying in bed. Denies chest pain or shortness of breath. She spoke to orthospine and is happy to know that they do not want to do surgery. Review of Systems Review of Systems: All systems reviewed & are unremarkable except as noted in Subjective Physical Exam Physical Exam: General: Awake, conversant Heart: S1, S2/regular rate and rhythm, no murmur rubs or gallops Lungs: Clear to auscultation bilaterally. Normal effort Abdomen: Soft/nontender/nondistended. No hepatosplenomegaly Extremities: No clubbing/cyanosis. No edema Behavior: Appropriate, cooperative Results & Data Results & Data Vital Signs (Past 12 Hours) Vital Signs Temp Pulse Resp BP Pulse Ox O2 Del Method 10/16/24 07:35 Room Air 10/16/24 07:14 36.5 C 62 16 150/65 H 96 Room Air PG Care Time/CCT Total # of Minutes Spent Total Time Spent with Patient: Total time spent is greater than 50% in coordination of care (as documented) at patient's floor/unit and/or counseling patient: Coding Level of Care Code 78354 SUB INP/OBS CARE 235MIN Diagnoses Ambulatory dysfunction R26.2 Acute pain of left hip M25.552 Weakness of left lower extremity R29.898 Spinal stenosis of lumbar region with neurogenic claudication M48.062 Neurogenic claudication status: with neurogenic claudication (4) Lumbar spinal stenosis Neurogenic claudication status: with neurogenic claudication Qualified Code(s): M48.062 - Spinal stenosis, lumbar region with neurogenic claudication
--- NOTE | 2024-10-17 14:06 | Hospitalist Progress Note ---
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 She has difficulty with activities like lifting her leg up to get into a car, and has had more difficulties ambulating despite using a walker at home and using a cane at night to go to the bathroom. She notes that over the past 3 to 4 days she had worsening increasing sharp spasms that began in her low back area and can radiate down to her left hip and into her leg. She denies any recent trauma. Ambulatory dysfunction/progressive weakness of left lower extremity- CT scan of the lumbar spine shows spondylosis and spondylolisthesis at L4/5 [facility] consulted. At her age, surgery should be avoided. Pain management consulted. They plan to pursue a L4-L5 transforaminal epidural steroid injection on Thursday 10/19 while inpatient.. Patient is waiting PT/OT involved Hypertension- continue amlodipine, carvedilol, diltiazem, hydralazine and telmisartan with hold parameters Blood pressure well-controlled Chronic medical issues: Anxiety depression-continue escitalopram daily, and lorazepam as needed B12 deficiency continue supplementation 1000 mcg daily CODE STATUS: Conditional code Patient does not want chest compressions, but will except pressors, and would want intubated if necessary Admission and Anticipated Discharge Date Admission Date: October 14, 2024 Subjective Patient was seen and examined at 10:25 AM. Denies chest pain or shortness of breath. Review of Systems Review of Systems: All systems reviewed & are unremarkable except as noted in Subjective Physical Exam Physical Exam: General: Awake, conversant Heart: S1, S2/regular rate and rhythm, no murmur rubs or gallops Lungs: Clear to auscultation bilaterally. Normal effort Abdomen: Soft/nontender/nondistended. No hepatosplenomegaly Extremities: No clubbing/cyanosis. No edema Behavior: Appropriate, cooperative Results & Data Results & Data Vital Signs (Past 12 Hours) Vital Signs Temp Pulse Resp BP Pulse Ox O2 Del Method 10/17/24 13:12 60 114/54 L 94 Room Air 10/17/24 08:15 Room Air 10/17/24 08:07 36.5 C 62 16 161/56 H 94 Room Air PG Care Time/CCT Total # of Minutes Spent Total Time Spent with Patient: Total time spent is greater than 50% in coordination of care (as documented) at patient's floor/unit and/or counseling patient: Coding Level of Care Code 30635 SUB INP/OBS CARE 2/35MIN Diagnoses Ambulatory dysfunction R26.2 Acute pain of left hip M25.552 Weakness of left lower extremity R29.898 Spinal stenosis of lumbar region with neurogenic claudication M48.062 Neurogenic claudication status: with neurogenic claudication (4) Lumbar spinal stenosis Neurogenic claudication status: with neurogenic claudication Qualified Code(s): M48.062 - Spinal stenosis, lumbar region with neurogenic claudication
--- NOTE | 2024-10-18 14:15 | Hospitalist Progress Note ---
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 She has difficulty with activities like lifting her leg up to get into a car, and has had more difficulties ambulating despite using a walker at home and using a cane at night to go to the bathroom. She notes that over the past 3 to 4 days she had worsening increasing sharp spasms that began in her low back area and can radiate down to her left hip and into her leg. She denies any recent trauma. Ambulatory dysfunction/progressive weakness of left lower extremity- CT scan of the lumbar spine shows spondylosis and spondylolisthesis at L4/5 [facility] consulted. At her age, surgery should be avoided. Pain management consulted. They plan to pursue a L4-L5 transforaminal epidural steroid injection on Thursday 10/19 while inpatient.. Patient is waiting PT/OT involved Hypertension- continue amlodipine, carvedilol, diltiazem, hydralazine and telmisartan with hold parameters Blood pressure fairly controlled Chronic medical issues: Anxiety depression-continue escitalopram daily, and lorazepam as needed B12 deficiency continue supplementation 1000 mcg daily CODE STATUS: Conditional code Patient does not want chest compressions, but will except pressors, and would want intubated if necessary Admission and Anticipated Discharge Date Admission Date: October 14, 2024 Subjective Patient was seen and examined at 9:35 AM. Denies any chest pain or shortness of breath. Review of Systems Review of Systems: All systems reviewed & are unremarkable except as noted in Subjective Physical Exam Physical Exam: General: Awake, conversant Heart: S1, S2/regular rate and rhythm, no murmur rubs or gallops Lungs: Clear to auscultation bilaterally. Normal effort Abdomen: Soft/nontender/nondistended. No hepatosplenomegaly Extremities: No clubbing/cyanosis. No edema Behavior: Appropriate, cooperative Results & Data Results & Data Vital Signs (Past 12 Hours) Vital Signs Temp Pulse Resp BP Pulse Ox O2 Del Method 10/18/24 07:57 36.6 C 65 16 174/82 H 95 Room Air PG Care Time/CCT Total # of Minutes Spent Total Time Spent with Patient: Total time spent is greater than 50% in coordination of care (as documented) at patient's floor/unit and/or counseling patient: Coding Level of Care Code 05558 SUB INP/OBS CARE 2/35MIN Diagnoses Ambulatory dysfunction R26.2 Acute pain of left hip M25.552 Weakness of left lower extremity R29.898 Spinal stenosis of lumbar region with neurogenic claudication M48.062 Neurogenic claudication status: with neurogenic claudication (4) Lumbar spinal stenosis Neurogenic claudication status: with neurogenic claudication Qualified Code(s): M48.062 - Spinal stenosis, lumbar region with neurogenic claudication
--- NOTE | 2024-10-19 01:56 | CT Scan Report ---
Exam(s): CT HEAD Without Contrast EXAM: CT Head Without Intravenous Contrast CLINICAL HISTORY: Reason for exam: Fall. TECHNIQUE: Axial computed tomography images of the head/brain without intravenous contrast. CTDI is 36.05 mGy and DLP is 624.41 mGy-cm. Automated exposure control was utilized for the study. A dose lowering technique was utilized adhering to the principles of ALARA. COMPARISON: Prior head CT from January 29, 2023. FINDINGS: Brain: Unremarkable. No hemorrhage. Advanced nonspecific white matter changes. No edema. Ventricles: Unremarkable. No ventriculomegaly. Bones/joints: Unremarkable. No acute fracture. Soft tissues: Unremarkable. Sinuses: Unremarkable as visualized. No acute sinusitis. Mastoid air cells: Unremarkable as visualized. No mastoid effusion. IMPRESSION: No evidence of acute intracranial pathology. Electronically signed by: Yoli Pierce MD 10/19/24 01:55 AM
--- NOTE | 2024-10-19 09:17 | Operative Report ---
Post Operative Report Pre & Post Diagnosis Lumbar radiculopathy and lumbar spinal stenosis I identified the patient and participated in the time-out.: Yes Procedure Left L4-5 transforaminal epidural steroid injection Surgeon Geri Anne, DO Director Of Training None Estimated Blood Loss 0 Findings Consistent with Post-Op Diagnosis Specimens None Anesthesia Type Local Disposition Accompanied Patient To Recovery: Yes Description of Procedure TRANSFORAMINAL EPIDURAL STEROID INJECTION (DIAGNOSTIC) Diagnosis: Lumbar Radiculitis and lumbar spinal stenosis Level injected: Left L4-5 Surgeon: Dr. Geri Anne Anesthesia: local Material forwarded to lab: none Complications: none Medications used in total: 2% lidocaine 5ml Depomedrol 1ml (80mg/ml) Isovue 300 2ml Prior to starting, the Patients diagnosis, allergies, medication list, and the procedure were reviewed with the patient in detail. Potential risks including infection, bleeding, nerve injury, reaction to any one of the medications used for the procedure, persistent pain at the injection site and persistent symptoms discussed with the patient. Diagnostic and therapeutic nature of the procedure also discussed with the patient. Alternatives to the specific procedure was also discussed with the patient. Patient's questions were answered. Patient gives informed consent to proceed. The patient was brought to the fluoroscopy room and placed in prone position on the table. Immediately prior to starting the procedure, a time out was conducted with the staff and the patient where the patient was identified, proposed procedure was verified, consent was reviewed and the proper site for the planned procedure was identified. Fluoroscopy was utilized in performing the procedure to assist the placement of the needle, to evaluate the final position of the needle prior to injection and to avoid intravascular injection. Monitors used included intermittent blood pressure with automated device, continuous pulse oximetry and level of consciousness. Patient was not given any intravenous sedation and constant verbal contact was maintained throughout the procedure. Lumbar-sacral area was prepped with duraprep and betadine solution. After the application, three minutes time elapsed prior to the start of the procedure to reduce risk of fire. Sterile drapes were applied. The appropriate interspace and disk was identified in a true AP view. The fluoroscope was then rotated to obtain a decubitus view in such a manner so that the superior articular process of the inferior vertebra was bisecting the pars inter-articularis of the vertebra above in two or in the 6 oclock position. Next, 4 mL of 2% lidocaine preservative-free was injected for local skin anesthesia. Then, a 22 Gauge 3.5 inch curved (15 degrees) spinal needle was inserted through the skin and subcutaneous tissues and advanced in a co-axial technique. Needle tip was first placed on the infero-lateral margin of the pars inter-articularis. Once the bony margin was contacted, the C-arm was rotated to obtain a lateral view. The needle was slowly "walked off" the bone and advanced toward the anterior and superior aspect of the foramen. Patient did not experience any pain or paresthesia. A six inch micro bore tubing was attached to the needle and aspiration did not demonstrate CSF or blood. Nonionic Isovue contrast 1ml was injected via the needle under live fluoroscopy. Spread of the contrast along the nerve root. AP view was checked to ensure the needle tip was in the close proximity to the nerve root an in the proximal neural foramen lateral to the inferior articular process and in the 6 oclock position. Additional 2ml of the contrast was injected under live fluoroscopy. Neither subdural or subarachnoid spread nor intravascular uptake was noted on plain fluoroscopy. Next 80mg depomedrol was injected followed by 2% lidocaine-MPF 1ml to flush the needle. The patient did not experience pain during the injection. Adequate hemostasis was noted. A sterile Band-Aid was applied to the injection site. Patient was taken back up to her floor bed and report was given to the floor RN. Vital signs remained stable. Postoperative Instructions were reviewed with the patien. Any specific questions were answered. Patient will return to the office in 2 weeks for further evaluation. We will call her with a follow-up appointment. I attest to the content of the Intraoperative Record and any orders documented therein. Any exceptions are noted below.
--- NOTE | 2024-10-19 13:26 | Hospitalist Progress Note ---
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 She has difficulty with activities like lifting her leg up to get into a car, and has had more difficulties ambulating despite using a walker at home and using a cane at night to go to the bathroom. She notes that over the past 3 to 4 days she had worsening increasing sharp spasms that began in her low back area and can radiate down to her left hip and into her leg. She denies any recent trauma. Ambulatory dysfunction/progressive weakness of left lower extremity- CT scan of the lumbar spine shows spondylosis and spondylolisthesis at L4/5 [facility] consulted. At her age, surgery should be avoided. Pain management consulted. s/p L4-L5 transforaminal epidural steroid injection 2/3 PT/OT involved - recommending rehab which patient is agreeable to. Hypertension- continue amlodipine, carvedilol, diltiazem, hydralazine and telmisartan with hold parameters Blood pressure fairly controlled Chronic medical issues: Anxiety depression-continue escitalopram daily, and lorazepam prn B12 deficiency continue supplementation 1000 mcg daily CODE STATUS: Conditional code Patient does not want chest compressions, but will except pressors, and would want intubated if necessary Patient medically stable for discharge pending placement. Admission and Anticipated Discharge Date Admission Date: October 14, 2024 Subjective Patient seen and examined this morning. Patient had just returned from her injection with pain management. She reported to be feeling well today. She reports it was easier to get in bed after her injection and less painful. Patient is aware that the injection will take several days to take full effect. She is now agreeable to rehab. Physical Exam Constitutional: WD/WN, vitals as above Eyes: PERRL, conjunctivae normal, anicteric sclerae Respiratory: breathing unlabored Cardiovascular: well perfused Musculoskeletal: moves all extremities Psychiatric: A+Ox3, euthymic affect Results & Data Results & Data Vital Signs (Past 12 Hours) Vital Signs Temp Pulse Resp BP Pulse Ox O2 Del Method 10/19/24 09:05 73 16 138/76 93 Room Air 10/19/24 07:45 Room Air 10/19/24 07:25 36.6 C 66 18 192/65 H 92 Room Air PG Care Time/CCT Total # of Minutes Spent Total Time Spent with Patient: Total time spent is greater than 50% in coordination of care (as documented) at patient's floor/unit and/or counseling patient: Coding Level of Care Code 59116 SUB INP/OBS CARE 2/35MIN Diagnoses Ambulatory dysfunction R26.2 Acute pain of left hip M25.552 Weakness of left lower extremity R29.898 Spinal stenosis of lumbar region with neurogenic claudication M48.062 Neurogenic claudication status: with neurogenic claudication (4) Lumbar spinal stenosis Neurogenic claudication status: with neurogenic claudication Qualified Code(s): M48.062 - Spinal stenosis, lumbar region with neurogenic claudication
[2024-10-19 19:20] VITALS: RESP 18
[2024-10-20 07:44] VITALS: BP 170/55; TEMP 97.5; O2SAT 93
--- NOTE | 2024-10-20 08:30 | Pain Management Progress Note ---
Date of Service October 20, 2024 Assessment & Plan (1) Multilevel lumbosacral spondylosis with radiculopathy: (2) Lumbar degenerative disc disease: (3) Lumbar spinal stenosis: Neurogenic claudication status: with neurogenic claudication Qualified Code(s): M48.062 - Spinal stenosis, lumbar region with neurogenic claudication Plan 1. Patient reported significant improvement in symptoms with reduction in frequency and severity of pain with improved ambulatory ability since time of lumbar DARRYL. Expectations were again reviewed with patient and she verbalized understanding. All of her questions were answered. 2. Patient may follow-up with pain service in outpatient as needed. 3. Pain service will sign off on patient at this time. Thank you for allowing us to participate in the care of this patient. Admission and Anticipated Discharge Date Admission Date: October 14, 2024 Subjective Mrs. Proctor is an 89-year-old white female who underwent a left L4-5 transforaminal DARRYL performed by Dr. Anne yesterday on 10/19/2024. Patient is reporting significant reduction in frequency and severity of pain in the left lower extremity since the time of the procedure. She is estimating her improvement is 80%. She rates her residual pain a 2/10 only. She is reporting improved ability to tolerate ambulatory activities. She reported no side effects of the procedure and is extremely pleased with results. Patient had no further constitutional complaints. Plan of care discussed with Dr. Geri Anne. Pain Assessment Pain Assessment Full Body Front + Back: 2 1. Left L4 distribution pain Pain scale - at its best (0-10): 0 Pain scale - at its worst (0-10): 2 Physical Exam 2 Physical Exam: General: Patient was seen ambulating with a walker from the bathroom to the bed. She was sitting at time of exam. Speech and thought process appropriate. Mood and affect appropriate. Cognition intact. Back/spine: Band-Aid was removed from injection site. No evidence of edema, erythema or skin breakdown. Patient is nontender to palpation in the lumbar paravertebral or quadratus lumborum musculature. Lower extremity: SLR negative. Strength testing is 4+/5 throughout without focal deficit. Sensation intact without deficit. No appreciable edema. Neurologic: Cranial nerves grossly intact. Ambulation was slowed with use of a 4-point walker.
--- NOTE | 2024-10-20 08:42 | Discharge Summary ---
Discharge Summary Date of Service October 20, 2024 Principal Dx & Hospital Course #1 = Principal Diagnosis (1) Ambulatory dysfunction: (2) Acute pain of left hip: (3) Weakness of left lower extremity: (4) Lumbar spinal stenosis: Plan The patient is an 89-year-old female with a past medical history including hypertension, anxiety with depression, B12 deficiency, ambulatory dysfunction, and lumbar spinal stenosis.The patient presents to the ED due to her concerns of family concerns regarding worsening left hip pain and left leg weakness, that her daughter reports that she has been dragging somewhat ever since 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 She has difficulty with activities like lifting her leg up to get into a car, and has had more difficulties ambulating despite using a walker at home and using a cane at night to go to the bathroom. She notes that over the past 3 to 4 days she had worsening increasing sharp spasms that began in her low back area and can radiate down to her left hip and into her leg. She denies any recent trauma. Ambulatory dysfunction/progressive weakness of left lower extremity- CT scan of the lumbar spine shows spondylosis and spondylolisthesis at L4/5 [facility] consulted. At her age, surgery should be avoided. Pain management consulted. s/p L4-L5 transforaminal epidural steroid injection 2/3 - patient w/ improvement of pain following injection. PT/OT involved - recommending rehab which patient is agreeable to. Hypertension- continue amlodipine, carvedilol, diltiazem, hydralazine and telmisartan with hold parameters Chronic medical issues: Anxiety depression-continue escitalopram daily, and lorazepam prn B12 deficiency continue supplementation 1000 mcg daily Patient discharged to rehab center 10/20/2024. 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 She has difficulty with activities like lifting her leg up to get into a car, and has had more difficulties ambulating despite using a walker at home and using a cane at night to go to the bathroom. She notes that over the past 3 to 4 days she had worsening increasing sharp spasms that began in her low back area and can radiate down to her left hip and into her leg. She denies any recent trauma. Discharge Exam Constitutional WD/WN, vitals as above Eyes PERRL, conjunctivae normal, anicteric sclerae Respiratory breathing unlabored Cardiovascular well perfused Psychiatric A+Ox3, euthymic affect Discharge Plan Discharge Items Patient Disposition: Transfer Inpatient Rehab Fac Reason For Visit: WEAKNESS, AMBULATORY DYSFUNCTION Discharge Diagnosis: Ambulatory dysfunction, weakness Activity: Resume your previous activity Non-emergency contact: Primary Care Provider Call non-emergency contact if: you have any medication questions, your symptoms worsen and your pain is not controlled Follow-up/Referrals: Aaron Franklin MD, FIPP [Physician] - Dawna Silverman DO [Primary Care Provider] - Diet: Heart Healthy Addtl Attending Provider Instructions: Ms. Proctor, You were recently hospitalized for weakness and pain regarding your left extremity. You were evaluated by our pain management team and had an injection on 10/19/2024. Following this you felt relief of your symptoms. Please see recommendations below regarding your discharge. 1. Please use Tylenol 650mg every 6 hours as needed for pain. 2. You may resume the remainder of your outpatient medications as previously prescribed. 3. Please follow up with the pain management clinic in two weeks. Their office information is above. 4. Please follow up with your PCP within 1-2 weeks of discharge. If you develop any worsening leg pain, back pain, weakness, chest pain, or shortness of breath please report back to the ER for further care. Sincerely, Savannah Haddad PA-C Pending Studies at Discharge: No Stand-Alone Forms: My [facility] Skilled Items Patient informed of condition?: Yes DNR: No Discharge Level of Care: Acute rehab Communicable Disease: No Discharge Prognosis: Improving Lines: None Urinary Catheter: No Medications and DC Order Prescriptions: Continued mecobalamin (vitamin B12) 1,000 mcg tablet,disintegrating 1,000 mcg sublingual DAILY Qty: 30 0RF Rx Instructions: place tablet under tongue and allow to dissolve for at least30 secs before swallowing diltiazem HCl 240 mg tablet extended release 24 hr 240 mg PO QAM Qty: 90 1RF hydralazine 25 mg tablet 75 mg PO TID Qty: 270 5RF carvedilol 12.5 mg tablet 12.5 mg PO BID Qty: 180 1RF amlodipine 10 mg tablet 10 mg PO DAILY Qty: 90 1RF escitalopram oxalate 20 mg tablet 20 mg PO QAM Qty: 90 1RF olmesartan 40 mg tablet 40 mg PO HS Qty: 90 2RF lorazepam 0.5 mg tablet 0.5 mg PO DAILY PRN (Reason: Anxiety) Qty: 30 0RF PreserVision AREDS [id number] nuxt-an-qyse capsule 1 cap PO BID aspirin 81 mg tablet,delayed release (DR/EC) 81 mg PO QAM acetaminophen [Tylenol] 325 mg Tablet 650 mg PO QID PRN (Reason: Pain) Discharge Orders: Discharge Order (Routine); Ordered 10/20/24 Ordered By: Savannah Haddad Admission Data Admit Date/Time: 10/14/24 06:32 Attending Provider: David Everett Admit Provider: Patricio Chau Primary Care Provider: Dawna Silverman Other Providers: Patricio Chau; Sarwat Wolfe; Aaron Franklin Other Interventions: Discharge Summary Assessment (RN) Last Done: 10/20/24 09:25 Hospital Stay Data Consultations 10/14/24 06:04 ED Decision to Admit Stat 10/14/24 09:31 Consult Orthopedic Surgery Routine 10/15/24 13:27 Consult Pain Management Routine Diagnostic Imagining Performed 10/14/24 03:43 CT hip LT wo con Stat CT lumbar spine wo con Stat 10/14/24 12:20 MR lumbar spine wo con Urgent 10/18/24 22:[address] [CT head/brain wo con] Stat 10/19/24 09:00 FL fluoro for pain procedure Routine Pending Results Patient Have Any Pending Studies at Discharge: No Discharge Instructions Given to Patient (Per Discharging Provider) Ms. Proctor, You were recently hospitalized for weakness and pain regarding your left extremity. You were evaluated by our pain management team and had an injection on 10/19/2024. Following this you felt relief of your symptoms. Please see recommendations below regarding your discharge. 1. Please use Tylenol 650mg every 6 hours as needed for pain. 2. You may resume the remainder of your outpatient medications as previously prescribed. 3. Please follow up with the pain management clinic in two weeks. Their office information is above. 4. Please follow up with your PCP within 1-2 weeks of discharge. If you develop any worsening leg pain, back pain, weakness, chest pain, or shortness of breath please report back to the ER for further care. Sincerely, Savannah Haddad PA-C Total Time Total Time Spent Total Time Spent (In Minutes): 40 Total Time Includes: Examination of the Patient, Discharge Planning and Medication Reconciliation Coding Level of Care Code 92310 INP/OBS DISCH >30 MIN Diagnoses Ambulatory dysfunction R26.2 Acute pain of left hip M25.552 Weakness of left lower extremity R29.898 Spinal stenosis of lumbar region with neurogenic claudication M48.062 Neurogenic claudication status: with neurogenic claudication
[2024-10-20 09:27] VITALS: PULSE 73
== END 2024-10-20 10:39 | DRG 552 ==
LOC: SUATTDRO → ED 02:05 → SUATTDRO 06:32 → EDINP 06:32 → 3N 09:32